=== PATIENT | female | born 1935 | race Caucasian/White ===

== ENCOUNTER → 2018-04-23 | Day surgery (SDC) | payer MEDICARE, BC ==
[~2018-04-23] MED LIST: ALEN70TA5 PO; CA C1TAB38 PO; CARV25TA2 PO; FOLI1TAB16 PO; HYDR-2145 PO; HYDROmorphone 2 MG/ML VIAL IV PRN; IV RINGERS,LACTATED 1000ML 1,000 ML IV SCH; LIDOCAINE 1% PF 2 ML VIAL. ID PRN; LOSA100T14 PO; MORPHINE SULFATE 4 MG/ML VIAL. IV PRN; NISO17TA PO; ONDANSETRON PF 4 MG/2 ML VIAL. IV PRN; PANT20TA2 PO; PHEN100C PO; POTA20TA4 PO; PROCHLORPERAZINE 10 MG/2 ML VIAL. IV PRN; PROPOFOL 20 ML IV ONE; RANI300C PO; SIMV40TA3 PO; WARF4TAB64 PO; fentaNYL PF VIAL 100 MCG/2 ML VIAL IV PRN
[2018-04-23 10:47] LABS: POTASSIUM 3.5 mmol/L (3.5-5.1)
[2018-04-23 12:35] VITALS: BP 157/63
--- NOTE | 2018-04-24 17:10 | PATHOLOGY ---
[facility] Accession Number: [id number] . 01 Material submitted: . PART A: ANTRAL BIOPSY PART B: GASTRIC POLYP BIOPSY PART C: DISTAL ESOPHAGUS BIOPSY PART D: Z LINE BIOPSY PART E: ESOPHAGEAL ULCER BIOPSY . 01 Clinical history: . Abnormal GI imaging . 02 Diagnosis: A. Gastric biopsies, antrum: - Congestion and slight chronic inflammation. . B. Gastric biopsies, gastric polyp: - Fundic gland polyp. . C. Esophageal biopsies, distal esophagus: - Segments of gastric cardia mucosa showing mild chronic inflammation. . D. 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 . E. 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 . (JPM:jaky; 04/24/2018) MBR/04/24/2018 . 02 Comment: Sections of the gastric biopsy reveal segments of gastric body and antral/body transition mucosa showing congestion and slight chronic inflammation. A properly controlled immunoperoxidase stain for Helicobacter is negative for Helicobacter organisms. Sections of the gastric polyp biopsy reveal a fundic gland polyp. There are no adenomatous changes or evidence of malignancy. Sections of the distal esophageal biopsy reveal segments of gastric cardia mucosa showing mild chronic inflammation. There is no squamous esophageal mucosa. 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 There is no squamous esophageal mucosa present. There is no dysplasia or evidence of malignancy. 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 There is no dysplasia or evidence of malignancy. There are no viral inclusions identified. . Special stain performed: Immunoperoxidase stain for Helicobacter on A1. . (JPM:junior assistant manager; 04/24/2018) . 02 Electronically signed: . Ochoa Jones MD, Pathologist NPI- [id number] . 01 Gross description: . A. Received in formalin labeled "Flor Goodman, antral BX, rule out H. pylori," are 3 segments of quach soft tissue measuring 0.9 x 0.6 x 0.2 cm in aggregate dimensions and ranging from 0.3 to 0.7 cm in maximum dimension. The specimen is submitted entirely in cassette A1. . B. Received in formalin labeled "David Goodmana, gastric polyp BX," are 2 segments of quach soft tissue measuring 0.5 x 0.2 x 0.2 cm in aggregate dimensions and ranging from 0.2 to 0.3 cm in maximum dimension. The specimen is submitted entirely in cassette B1. . C. Received in formalin labeled "BudDavid henrya, distal esophagus BX," is a single segment of quach soft tissue measuring 0.5 cm in maximum dimension. The specimen is entirely submitted in cassette C1. . D. Received in formalin labeled "David Goodmana, Z line bx," are 2 segments of quach soft tissue measuring 0.5 x 0.2 x 0.2 cm in aggregate dimensions and ranging from 0.2 to 0.3 cm in maximum dimension. The specimen is submitted entirely in cassette D1. . E. Received in formalin labeled "Maxine, Flor, esophageal ulcer BX, rule out CMV and HSV," are 3 segments of quach soft tissue measuring 0.6 x 0.4 x 0.2 cm in aggregate dimensions and ranging from 0.2 to 0.3 cm in maximum dimension. The specimen is submitted entirely in cassette E1. (TSD; 04/23/2018) TOB/TOB . 02 Pathologist provided ICD-10: K29.50, K31.7, K20.9, K22.70 . 02 CPT . 830847, 888620, 359157, 031157, 345978, E77806 Specimen Comment: A courtesy copy of this report has been sent to Specimen Comment: [phone], . Specimen Comment: Report sent to / DR LOPEZ Specimen Comment: A duplicate report has been generated due to demographic updates. Performed at: 01 [facility] [address] [id number] MD Anam Snyder MD Phone: [phone] Performed at: 02 [facility] [address] [place] [id number] MD Ochoa Jones MD Phone: [phone]
== END | disposition home or self-care (01) ==
LOC: ENDOS 09:57
PROVIDERS: ATTEND Internal Medicine
DX: K31.7 Polyp of stomach and duodenum (principal); K22.2 Esophageal obstruction; K44.9 Diaphragmatic hernia without obstruction or gangrene; K22.10 Ulcer of esophagus without bleeding; K22.8 Other specified diseases of esophagus; K31.89 Other diseases of stomach and duodenum; K29.50 Unspecified chronic gastritis without bleeding; K21.0 Gastro-esophageal reflux disease with esophagitis; I10 Essential (primary) hypertension; Z86.73 Personal history of transient ischemic attack (TIA), and cerebral infarction without residual deficits; E78.00 Pure hypercholesterolemia, unspecified; Z82.49 Family history of ischemic heart disease and other diseases of the circulatory system; Z72.0 Tobacco use; Z79.899 Other long term (current) drug therapy; Z90.710 Acquired absence of both cervix and uterus; Z79.01 Long term (current) use of anticoagulants; G40.909 Epilepsy, unspecified, not intractable, without status epilepticus; M81.0 Age-related osteoporosis without current pathological fracture
CPT/HCPCS: 36415; 43239; 80051; 88305; 88342; J2704

== ENCOUNTER → 2018-07-09 | Day surgery (SDC) | payer MEDICARE, BC ==
[~2018-07-09] MED LIST changes: -ALEN70TA5 PO; +ALEN70TA6 PO; -HYDROmorphone 2 MG/ML VIAL IV PRN; -LIDOCAINE 1% PF 2 ML VIAL. ID PRN; +LIDOCAINE 2% PF 5 ML VIAL. ONE; -MORPHINE SULFATE 4 MG/ML VIAL. IV PRN; -ONDANSETRON PF 4 MG/2 ML VIAL. IV PRN; -PROCHLORPERAZINE 10 MG/2 ML VIAL. IV PRN; -fentaNYL PF VIAL 100 MCG/2 ML VIAL IV PRN
[2018-07-09 08:58] VITALS: BP 159/86
--- NOTE | 2018-07-10 16:06 | PATHOLOGY ---
[facility] Accession Number: [id number] . 01 Material submitted: . PART A: stomach - GASTRIC ANTRUM BIOPSY PART B: esophagus - DISTAL ESOPHAGUS BIOPSY. Modifiers: distal . 01 Clinical history: . Follow-up ulcer . 02 Diagnosis: A. Gastric biopsies, antrum: - Acute gastritis. . B. Esophageal biopsy, distal esophagus: - Segment of gastric mucosa showing edema and chronic inflammation. . (JPM:pile driving nozzleman; 07/10/2018) MBR/07/10/2018 . 02 Comment: Sections of the gastric antral biopsy show congestion and neutrophilic infiltration of lamina propria with focally admixed eosinophils and few plasma cells. A properly controlled immunoperoxidase stain for Helicobacter is negative for Helicobacter organisms. Sections of the distal esophageal biopsy reveal a segment of gastric mucosa showing edema and mild to moderate chronic inflammation. There is no squamous esophageal mucosa. There is no evidence of Goldsmith's change, dysplasia, or malignancy. (JPM:pile driving nozzleman; 07/10/2018) . Special stain performed: Immunoperoxidase stain for Helicobacter on A1. . 02 Electronically signed: . Ochoa Jones MD, Pathologist NPI- [id number] . 01 Gross description: . A. The specimen is received in formalin, labeled "Budelaine, Flor, gastric antrum BX", are 2 quach mucosal tissues measuring 0.2 cm and a 0.3 cm in greatest dimension, entirely submitted in A1. . B. The specimen is received in formalin, labeled "Budke, Harmony, distal esophagus BX", is a [id number] tissue measuring 0.2 cm in greatest dimension, entirely submitted in B1. (SWS; 07/09/2018) SHS/SHS . 02 Pathologist provided ICD-10: K29.00, K20.9 . 02 CPT . 159733, 693744, E49767 Specimen Comment: A courtesy copy of this report has been sent to Specimen Comment: [phone], . Specimen Comment: Report sent to / DR LOPEZ Performed at: [address] [facility] [address], [place] [id number] MD Anam Snyder MD Phone: [phone] Performed at: 02 [facility] [address] [place], [place] [id number] MD Ochoa Jones MD Phone: [phone]
== END | disposition home or self-care (01) ==
LOC: SURG 06:45
PROVIDERS: ATTEND Internal Medicine
DX: K22.2 Esophageal obstruction (principal); K22.8 Other specified diseases of esophagus; K44.9 Diaphragmatic hernia without obstruction or gangrene; K31.7 Polyp of stomach and duodenum; K31.89 Other diseases of stomach and duodenum; K29.00 Acute gastritis without bleeding; K21.0 Gastro-esophageal reflux disease with esophagitis; I10 Essential (primary) hypertension; E78.5 Hyperlipidemia, unspecified; Z86.73 Personal history of transient ischemic attack (TIA), and cerebral infarction without residual deficits; G40.909 Epilepsy, unspecified, not intractable, without status epilepticus; M81.0 Age-related osteoporosis without current pathological fracture; E78.00 Pure hypercholesterolemia, unspecified; Z72.89 Other problems related to lifestyle; Z79.899 Other long term (current) drug therapy; Z90.710 Acquired absence of both cervix and uterus
CPT/HCPCS: 43239; 88305; 88342; J2001; J2704

== ENCOUNTER 2021-01-04 19:45 | Inpatient (IN) | payer MEDICARE, BC ==
[~2021-01-04] VITALS: Ht 157.5 cm; Wt 48.4 kg
[~2021-01-04 19:45] MED LIST changes: -ALEN70TA6 PO; +ALEN70TA71 PO; -IV RINGERS,LACTATED 1000ML 1,000 ML IV SCH; -LIDOCAINE 2% PF 5 ML VIAL. ONE; +POTA-121 PO; -POTA20TA4 PO; -PROPOFOL 20 ML IV ONE; +SIMV40TA18 PO; -SIMV40TA3 PO
[2021-01-04] MEDS ORDERED: fentaNYL PF VIAL 100 MCG/2 ML VIAL IVP PRN (20:00)
[2021-01-04] MEDS ORDERED: ACETAMINOPHEN 325 MG TABLET. PO PRN (20:00)
[2021-01-04] MEDS ORDERED: ONDANSETRON PF 4 MG/2 ML VIAL. IVP PRN (20:00)
[2021-01-04] MEDS ORDERED: IPRATRPIUM/ALBUTEROL 0.5/2.5MG 3 ML NEBU. NEB PRN (20:00)
[2021-01-04] MEDS ORDERED: hydrALAZINE 20 MG/ML VIAL. IVP ONE (20:15)
--- NOTE | 2021-01-04 20:15 | ED.ADGEN ---
General Adult EDM: Chief Complaint: HEAD INJURY/TRAUMA HPI: HPI: Patient is a 85 year old female trauma transfer from [facility] emergency department for a fall with 5 posterior rib fractures and a scalp hematoma. Patient is anticoagulated with Coumadin due to a previous stroke. Patient states his mechanical fall she fell backwards in her head without loss of consciousness. Patient had imaging done at [facility] which I have reviewed. Patient had a scalp abrasion without laceration that was bandaged no sutures or celine placed. Review of Systems: Review of Systems: All other systems within normal limits except for as noted in the HPI Current Medications: Current Medications Medications (Trade) Dose Ordered Sig/Cisco Start Time Stop Time Status Last Admin Dose Admin Acetaminophen (Tylenol) 650 mg PRN Q4HRS PRN 01/04/21 20:00 01/05/21 19:59 UNV Albuterol/ Ipratropium (Duoneb) 3 ml RTQID PRN 01/04/21 20:00 01/05/21 19:59 UNV Amlodipine Besylate (Norvasc) 5 mg 1X ONCE 01/04/21 20:00 01/04/21 20:01 UNV Fentanyl Citrate (Fentanyl 2ml Vial) 50 mcg PRN Q1HR PRN 01/04/21 20:00 01/05/21 19:59 UNV Hydralazine HCl (Apresoline Inj) 10 mg 1X ONCE 01/04/21 20:15 01/04/21 20:16 UNV Ondansetron HCl (Zofran) 4 mg PRN Q8HRS PRN 01/04/21 20:00 01/05/21 19:59 UNV Allergies: Allergies: Allergies Coded Allergies Type Severity Reaction Last Updated Verified No Known Drug Allergies 07/09/18 No Physical Exam: PE: Constitutional: Well developed, well nourished, no acute distress, non-toxic appearance. [] HENT: Normocephalic, posterior scalp, with overlying bandage, bilateral external ears normal, nose normal. [] Eyes: PERRLA, conjunctiva normal, no discharge. [] Neck: No rigidity, supple, no stridor. [] Cardiovascular: Regular rate and rhythm, brisk cap refill [] Lungs & Thorax: Non labored symmetric respirations, mild tachypnea or respiratory distress [] Abdomen: Soft, nondistended. Skin: Warm, dry, no erythema, no rash. [] Back: Unremarkable Extremities: No deformities, range of motion grossly intact, no lower extremity edema [] Neurologic: Alert and oriented X 3, no focal deficits noted. [] Psychologic: Affect normal, judgement normal, mood normal. [] EKG: EKG: [] Heart Score: C/O Chest Pain: N/A Risk Factors: Risk Factors: DM, Current or recent (<one month) smoker, HTN, HLP, family history of CAD, obesity. Risk Scores: Score 0 - 3: 2.5% MACE over next 6 weeks - Discharge Home Score 4 - 6: 20.3% MACE over next 6 weeks - Admit for Clinical Observation Score 7 - 10: 72.7% MACE over next 6 weeks - Early Invasive Strategies Radiology/Procedures: Radiology/Procedures: [] Course & Med Decision Making: Course & Med Decision Making Pertinent Labs and Imaging studies reviewed. (See chart for details) Contacted Dr. Hyman and Dr. Case outpatient arrival and repeat assessment. Patient appears to be stable without tachypnea, pain is controlled with fentanyl just prior to departure from [facility]. Will admit to ICU for pulmonary care [] Dragon Disclaimer: Dragon Disclaimer: This electronic medical record was generated, in whole or in part, using a voice recognition dictation system. Departure Departure Impression: Primary Impression: Fall Additional Impressions: Traumatic hematoma of scalp Closed traumatic nondisplaced fracture of multiple ribs of right side Disposition: ADMITTED INPATIENT Admitting Physician: Madi. Toure Condition: GUARDED Referrals: GIDEON LOPEZ MD (PCP) Problem Qualifiers CLARISSA ANDRADE MD Jan 04, 2021 20:15
[2021-01-04 22:00] VITALS: BP 140/56
[2021-01-04 23:00] VITALS: BP 165/64
[2021-01-05] VITALS (14 sets, daily range): BP systolic 120–183; BP diastolic 52–113
[2021-01-05] MEDS: PHENYTOIN SODIUM EXTENDED 100 MG CAPSULE PO SCH ×4 (00:25→21:27)
[2021-01-05 05:02] LABS: BASO % 1 % (0-3); EOS # 0.1 x10^3/uL (0.0-0.7); EOS % 2 % (0-3); HEMATOCRIT 32.1 % (36.0-47.0); LYMPH # 0.9 x10^3/uL (1.0-4.8); LYMPH % 14 % (24-48); MEAN CORPUSCULAR HEMOGLOBIN 30 pg (25-35); MEAN CORPUSCULAR HGB CONC 34 g/dL (31-37); MEAN CORPUSCULAR VOLUME 86 fL (79-100); MONO # 0.9 x10^3/uL (0.0-1.1); MONO % 14 % (0-9); NEUT # 4.6 x10^3/uL (1.8-7.7); NEUT % 71 % (31-73); PLATELET COUNT 200 x10^3/uL (140-400); RED BLOOD COUNT 3.71 x10^6/uL (3.50-5.40); RED CELL DISTRIBUTION WIDTH 14.1 % (11.5-14.5); WHITE BLOOD COUNT 6.5 x10^3/uL (4.0-11.0)
[2021-01-05 05:26] LABS: CALCIUM 7.8 mg/dL (8.5-10.1); CREATININE 0.7 mg/dL (0.6-1.0); GFR 79.5; POTASSIUM 3.8 mmol/L (3.5-5.1)
[2021-01-05] MEDS: PANTOPRAZOLE 40 MG TABLET.DR. PO SCH (08:58)
[2021-01-05] MEDS: POTASSIUM CHLORIDE 20 MEQ TABLET.ER. PO SCH (08:58)
[2021-01-05] MEDS: hydroCHLOROthiazide 25 MG TABLET PO SCH (08:58)
[2021-01-05] MEDS: CARVEDILOL 12.5 MG TABLET. PO SCH ×2 (08:59→17:25)
[2021-01-05] MEDS: FOLIC ACID 1 MG TABLET. PO SCH (08:59)
[2021-01-05] MEDS: LOSARTAN POTASSIUM 50 MG TABLET. PO SCH (08:59)
--- NOTE | 2021-01-05 08:59 | PDOC2 ---
HEATHERGAVINO Roz [employer] 01/05/21 0859: CONSULT Date of Consult Date of Consult DATE: 01/05/21 TIME: 08:54 Reason for Consult Reason for Consult: Trauma, rib fx Referring Physician Referring Physician: ER Identification/Chief Complaint Chief Complaint fall Source Source: Chart review, Patient History of Present Illness Reason for Visit: Fall backwards, striking posterior scalp. Denies LOC. Initially seen in [facility] ER. Imaging with 5th-10th rib fx. Tx to [facility] for further management Currently denies any pain, no vision changes, no nausea Past Medical History Cardiovascular: CAD, HTN, Hyperlipidemia CENTRAL NERVOUS SYSTEM: Seizure, Other (strok) GI: GERD Past Surgical History Past Surgical History: Hysterectomy Family History Family History: Family History Unknown Social History No ALCOHOL: none Drugs: None Current Problem List Problem List Problems Medical Problems: (1) Closed traumatic nondisplaced fracture of multiple ribs of right side Status: Acute (2) Fall Status: Acute (3) Traumatic hematoma of scalp Status: Acute Current Medications Current Medications Current Medications Ondansetron HCl (Zofran) 4 mg PRN Q8HRS PRN IVP NAUSEA/VOMITING; Start 01/04/21 at 20:00; Stop 01/05/21 at 19:59 Fentanyl Citrate (Fentanyl 2ml Vial) 50 mcg PRN Q1HR PRN IVP PAIN Last administered on 01/04/21at 21:52; Start 01/04/21 at 20:00; Stop 01/05/21 at 19:59 Acetaminophen (Tylenol) 650 mg PRN Q4HRS PRN PO FEVER > 100.3'F; Start 01/04/21 at 20:00; Stop 01/05/21 at 19:59 Albuterol/ Ipratropium (Duoneb) 3 ml RTQID PRN NEB dyspnea/wheezing; Start 01/04/21 at 20:00; Stop 01/05/21 at 19:59 Amlodipine Besylate (Norvasc) 5 mg 1X ONCE PO Last administered on 01/04/21at 20:35; Start 01/04/21 at 20:00; Stop 01/04/21 at 20:19; Status DC Hydralazine HCl (Apresoline Inj) 10 mg 1X ONCE IVP Last administered on 01/04/21at 20:36; Start 01/04/21 at 20:15; Stop 01/04/21 at 20:19; Status DC Hydralazine HCl (Apresoline Inj) 20 mg TID PRN PRN IVP ELEVATED BP, SEE COMMENTS; Start 01/04/21 at 22:45 Amlodipine Besylate (Norvasc) 10 mg DAILY PO ; Start 01/05/21 at 09:00 Folic Acid (Folic Acid) 1 mg DAILY PO ; Start 01/05/21 at 09:00 Hydrochlorothiazide (Hydrodiuril) 25 mg DAILY PO ; Start 01/05/21 at 09:00 Phenytoin Sodium (Dilantin) 300 mg TID PO Last administered on 01/05/21at 00:25; Start 01/05/21 at 00:00 Potassium Chloride (Klor-Con) 20 meq DAILY PO ; Start 01/05/21 at 09:00 Atorvastatin Calcium (Lipitor) 20 mg QHS PO ; Start 01/05/21 at 21:00 Non-Formulary Medication (Alendronate Sodium ) 70 mg WEEKLY PO ; Start 01/11/21 at 09:00; Status UNV Calcium/Vitamin D (Oscal D 500mg/ 200uts) 1 tab DAILY PO ; Start 01/05/21 at 09:00 Carvedilol (Coreg) 25 mg BIDWMEALS PO ; Start 01/05/21 at 08:00 Losartan Potassium (Cozaar) 100 mg DAILY PO ; Start 01/05/21 at 09:00 Pantoprazole Sodium (Protonix) 40 mg DAILYAC PO ; Start 01/05/21 at 07:30 Non-Formulary Medication (Ranitidine Hcl ) 300 mg HS PO ; Start 01/05/21 at 21:00; Status UNV Active Scripts Active Reported Dilantin (Phenytoin Sodium Extended) 100 Mg Capsule 300 Mg PO TID Nisoldipine 17 Mg Tab.er.24h 17 Mg PO DAILY Simvastatin 40 Mg Tablet 40 Mg PO HS Ranitidine Hcl 300 Mg Capsule 300 Mg PO HS Warfarin Sodium 4 Mg Tablet 4 Mg PO DAILY Alendronate Sodium 70 Mg Tablet 70 Mg PO WEEKLY Calcium + D Soft Chewable Tab (Ca Carbonate/Vitamin D3/Vit K) 1 Each Tab.chew 1 Each PO DAILY Protonix (Pantoprazole Sodium) 20 Mg Tablet.dr 20 Mg PO DAILY Folic Acid 1 Mg Tablet 1 Mg PO DAILY Klor-Con M20 (Potassium Chloride) 20 Meq Tab.er.prt 20 Meq PO DAILY Hydrochlorothiazide Tablet (Hydrochlorothiazide) 25 Mg Tablet 25 Mg PO DAILY Losartan Potassium 100 Mg Tablet 100 Mg PO DAILY Carvedilol 25 Mg Tablet 25 Mg PO BIDWMEALS Allergies Allergies: Coded Allergies: No Known Drug Allergies (Unverified , 07/09/18) ROS General: No: Chills, Other (fevers ) PSYCHOLOGICAL ROS: No: Anxiety, Depression Eyes: No Blurry vision, No Double vision, No Loss of vision HEENT: No: Heacaches, Visual Changes, Hearing change Hematological and Lymphatic: YES: Bleeding Problems; No: Blood Clots Respiratory: No: Cough, Shortness of breath Cardiovascular: No Chest Pain, No Palpitations Gastrointestinal: No Nausea, No Vomiting Genitourinary: No Dysuria, No Hematuria Musculoskeletal: Yes Muscular Weakness; No Joint Pain Neurological: Yes Impaired Coord/balance; No Numbness/Tingling Skin: No Pruritus, No Rash Physical Exam General: Alert, Oriented X3, Cooperative HEENT: PERRLA, Mucous membr. moist/pink Lungs: Clear to auscultation, Normal air movement Heart: Regular rate, Normal S1, Normal S2 Abdomen: Soft, No tenderness, No hepatosplenomegaly Extremities: No clubbing, No cyanosis Skin: No rashes, No breakdown Neuro: Normal speech, Sensation intact Psych/Mental Status: Mental status NL, Mood NL MUSCULOSKELETAL: No deformity, No swelling Vitals VITALS Vital Signs Date Time Temp Pulse Resp B/P (MAP) Pulse Ox O2 Delivery O2 Flow Rate FiO2 01/05/21 07:00 65 21 173/63 (99) 95 Room Air 01/05/21 04:00 98.6 98.6 Labs Labs Laboratory Tests Test 01/05/21 04:40 White Blood Count 6.5 x10^3/uL (4.0-11.0) Red Blood Count 3.71 x10^6/uL (3.50-5.40) Hemoglobin 11.0 g/dL (12.0-15.5) Hematocrit 32.1 % (36.0-47.0) Mean Corpuscular Volume 86 fL (79-100) Mean Corpuscular Hemoglobin 30 pg (25-35) Mean Corpuscular Hemoglobin Concent 34 g/dL (31-37) Red Cell Distribution Width 14.1 % (11.5-14.5) Platelet Count 200 x10^3/uL (140-400) Neutrophils (%) (Auto) 71 % (31-73) Lymphocytes (%) (Auto) 14 % (24-48) Monocytes (%) (Auto) 14 % (0-9) Eosinophils (%) (Auto) 2 % (0-3) Basophils (%) (Auto) 1 % (0-3) Neutrophils # (Auto) 4.6 x10^3/uL (1.8-7.7) Lymphocytes # (Auto) 0.9 x10^3/uL (1.0-4.8) Monocytes # (Auto) 0.9 x10^3/uL (0.0-1.1) Eosinophils # (Auto) 0.1 x10^3/uL (0.0-0.7) Basophils # (Auto) 0.0 x10^3/uL (0.0-0.2) Sodium Level 131 mmol/L (136-145) Potassium Level 3.8 mmol/L (3.5-5.1) Chloride Level 96 mmol/L (98-107) Carbon Dioxide Level 30 mmol/L (21-32) Anion Gap 5 (6-14) Blood Urea Nitrogen 14 mg/dL (7-20) Creatinine 0.7 mg/dL (0.6-1.0) Estimated GFR (Cockcroft-Gault) 79.5 Glucose Level 95 mg/dL (70-99) Calcium Level 7.8 mg/dL (8.5-10.1) Laboratory Tests Test 01/05/21 04:40 White Blood Count 6.5 x10^3/uL (4.0-11.0) Red Blood Count 3.71 x10^6/uL (3.50-5.40) Hemoglobin 11.0 g/dL (12.0-15.5) Hematocrit 32.1 % (36.0-47.0) Mean Corpuscular Volume 86 fL (79-100) Mean Corpuscular Hemoglobin 30 pg (25-35) Mean Corpuscular Hemoglobin Concent 34 g/dL (31-37) Red Cell Distribution Width 14.1 % (11.5-14.5) Platelet Count 200 x10^3/uL (140-400) Neutrophils (%) (Auto) 71 % (31-73) Lymphocytes (%) (Auto) 14 % (24-48) Monocytes (%) (Auto) 14 % (0-9) Eosinophils (%) (Auto) 2 % (0-3) Basophils (%) (Auto) 1 % (0-3) Neutrophils # (Auto) 4.6 x10^3/uL (1.8-7.7) Lymphocytes # (Auto) 0.9 x10^3/uL (1.0-4.8) Monocytes # (Auto) 0.9 x10^3/uL (0.0-1.1) Eosinophils # (Auto) 0.1 x10^3/uL (0.0-0.7) Basophils # (Auto) 0.0 x10^3/uL (0.0-0.2) Sodium Level 131 mmol/L (136-145) Potassium Level 3.8 mmol/L (3.5-5.1) Chloride Level 96 mmol/L (98-107) Carbon Dioxide Level 30 mmol/L (21-32) Anion Gap 5 (6-14) Blood Urea Nitrogen 14 mg/dL (7-20) Creatinine 0.7 mg/dL (0.6-1.0) Estimated GFR (Cockcroft-Gault) 79.5 Glucose Level 95 mg/dL (70-99) Calcium Level 7.8 mg/dL (8.5-10.1) Assessment/Plan Assessment/Plan fall, rib fx no pneumo on CT, sats >90% on RA, denies pain increase activity, PT/ot eval no surgical needs MUKESH SARAVIA MD 01/05/21 1214: CONSULT Assessment/Plan Assessment/Plan Pt seen and examined. Agree with Ms. Romero's note Pt feels comfortable now alert and oriented, pleasant abd soft, NTTP OK to transfer out of ICU and ADAT Thanks for consult! GAVINO ROMERO APRN Jan 05, 2021 08:59 MUKESH SARAVIA MD Jan 05, 2021 12:14
[2021-01-05] MEDS: CALCIUM CARB/VIT D3 500/200 TABLET. PO SCH (09:41)
--- NOTE | 2021-01-05 09:58 | PN ---
DATE: 01/05/2021 SUBJECTIVE: The patient is resting, slightly propped up in bed, eating her breakfast comfortably, in no apparent distress. On questioning her, she did complain of back pain on the right side on movement and taking a deep breath. Otherwise, she seemed to be in no apparent respiratory distress. PHYSICAL EXAMINATION: GENERAL: When I examined her, she looked well and was clearly pale, but not jaundiced, cyanosed or thyromegaly. No jugular venous distention. No lower limb edema. VITAL SIGNS: Her heart rate was 65, blood pressure was 177/75, temperature was 98.6, respiratory rate 21, and oxygen saturation was 95% on room air. HEAD, EYES, EARS, NOSE AND THROAT: Normocephalic, atraumatic. NECK: Supple. HEART: Showed normal first and second heart sounds. No gallop or murmur. CHEST: Shows central trachea, equal bilateral chest expansion, air entry, vesicular breath sounds. No crepitation or rhonchi. Tenderness mostly on the right side posteriorly. ABDOMEN: Distended, soft, nontender. NEUROLOGIC: She was grossly intact. Her intake and output are incompletely recorded. LABORATORY DATA: This morning showed white cell count 6500, hemoglobin 11, hematocrit 32, MCV 86 and platelet count 200,000. Her chemistry showed a serum sodium 131, potassium 3.8, chloride 96, bicarbonate 30, anion gap of 5, BUN 14, creatinine 0.7, estimated GFR was 79 mL per minute, glucose 95 and calcium was 7.8. ASSESSMENT: Fall with resultant right-sided rib fracture including right 5th to 10th rib fracture. There is no pneumothorax or hemothorax. The patient has multiple medical problems including hypertension, hyperlipidemia, atrial fibrillation, seizure disorder, gastroesophageal reflux disease, history of cerebrovascular accident, chronic hyponatremia and macular degeneration as well as osteoporosis. PLAN: Continue with pain management. We will start physical and occupational therapy. The patient will probably require placement in a intermediate facility. JET DR: Jaqueline TID: [id number]
--- NOTE | 2021-01-05 10:26 | HP ---
ADMIT DATE: 01/04/2021 HISTORY OF PRESENT ILLNESS: The patient is an 85-year-old female patient who presented to the Emergency Room of [facility] [place] with a fall. She stated that she tripped on a crack in the concrete and fell backward and hitting her head; however, she denied any loss of consciousness. She is on warfarin and apparently she has had a history of what seemed to be atrial fibrillation. She also has a history of CVA. She reported pain in her head and the right posterior ribs. She, however, denied any dizziness or lightheadedness. Denied any palpitation. Denied any pain in any other areas. She was extensively investigated in the Emergency Room, has had imaging studies and lab work. Her CT scan of the head showed old right CVA and chronic white matter changes, cerebral atrophy, but no intracranial hemorrhage or definite acute finding. CT scan of the cervical spine showed extensive degenerative changes in the cervical spine, but no acute C-spine fracture. Her CT scan of the chest, abdomen and pelvis without contrast revealed mildly displaced posterior right fifth through the tenth rib fracture, no pneumothorax compression fractures involving T6, T5, T7 and T11 vertebral bodies, which are age indeterminate. No sequelae of acute traumatic injury identified within the abdomen and pelvis. She had diverticulosis without evidence of acute diverticulitis. The patient [facility] evaluation and management. PAST MEDICAL HISTORY: Significant for hypertension, hyperlipidemia. She had right middle cerebral artery territory infarct, right-sided cerebrovascular accident, dementia, depression, gastroesophageal reflux disease. She also had syndrome of inappropriate ADH, hypokalemia, senile macular degeneration, osteoporosis. PAST SURGICAL HISTORY: Significant for hysterectomy, tonsillectomy, appendectomy. ALLERGIES: She has no known drug allergies. MEDICATIONS: She is currently on following medication: She is on Aricept 5 mg at bedtime, warfarin 3 mg daily, simvastatin 40 mg at bedtime, hydralazine 25 mg 3 times a day with meals, carvedilol 25 mg 3 times a day, nisoldipine 17 mg daily, losartan potassium 100 mg daily, fentanyl 12 mcg topically every 72 hours, phenytoin sodium extended release 300 mg at bedtime, fluoxetine 10 mg daily, calcium carbonate with vitamin D3 one tablet twice a day, potassium chloride 20 mEq twice a day. She is also on aflibercept 2 mg and 0.05 mL every 2-3 months for macular degeneration. She is on ondansetron 4 mg every 8 hours. She is on ranitidine 300 mg at bedtime, Protonix 20 mg twice a day, Nystatin powder apply topically twice a day. 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 FAMILY HISTORY: Noncontributory. SOCIAL HISTORY: She is , has 4 sons and 2 daughters. She has never been a smoker, used to drink alcohol, but has not drank for almost more than 12 years. She does not use any drugs. She used to be a printing press operator apprentice. REVIEW OF SYSTEMS: As per history of present illness. PHYSICAL EXAMINATION: GENERAL: On arrival to the Emergency Room, the patient looked well and was in no apparent respiratory distress. No pallor, jaundice, cyanosis or thyromegaly. No jugular venous distention. No lower limb edema. VITAL SIGNS: Her heart rate was 76, blood pressure was 211/102, temperature was 98.4, respiratory rate was 16 and oxygen saturation was 98%. HEAD, EYES, EARS, NOSE, AND THROAT: Normocephalic and atraumatic. NECK: Supple. HEART: Showed normal first and second heart sounds, no gallop or murmur. CHEST: Clear to auscultation. No crepitation or rhonchi. She had tenderness mostly on the right side posteriorly. ABDOMEN: Distended, soft, nontender. NEUROLOGIC: She was grossly intact. LABORATORY DATA: Her lab work showed a white cell count of 8500, hemoglobin 12.7, hematocrit 37, MCV 88 and platelet count 235,000 with normal manual differential. Her prothrombin time was 23.9, INR of 2.3, APTT 30. Her chemistry showed a serum sodium 131, potassium 4.7, chloride 95, bicarbonate 31, anion gap of 5, BUN 17, creatinine 0.7. Estimated GFR was 79 mL per minute. Her glucose was 110, calcium was 8.8. Total bilirubin, AST, ALT, alkaline phosphatase were normal. Total protein 7.4, albumin 3.1. Her CT scan of the head and cervical spine showed old right sided CVA, chronic white matter changes, cerebral atrophy, no intracranial hemorrhage or definite acute finding. CT scan of the cervical spine showed extensive degenerative changes in the cervical spine, but no acute C-spine fracture. CT scan of the chest, abdomen and pelvis showed the patient has mildly displaced posterior right fifth through tenth rib fractures, no pneumothorax, compression fracture involving T5, T7, T11 vertebral bodies, which are age indeterminate, correlate with point tenderness. No sequelae of acute traumatic injury identified within the abdomen and pelvis or diverticulosis without evidence of acute diverticulitis. PLAN: To continue all her medications. Continue with pain management. We will start physical and occupational therapy. ARMEN DR: Jaqueline TID: [id number]
--- NOTE | 2021-01-05 10:52 | PDOC ---
PULMONARY PROGRESS NOTES DATE: 01/05/21 TIME: 10:50 Vitals Vital Signs Date Time Temp Pulse Resp B/P (MAP) Pulse Ox O2 Delivery O2 Flow Rate FiO2 01/05/21 09:26 97 Room Air 01/05/21 09:00 66 28 183/113 (136) 01/05/21 08:00 98.3 98.3 Labs Laboratory Tests Test 01/05/21 04:40 White Blood Count 6.5 x10^3/uL (4.0-11.0) Red Blood Count 3.71 x10^6/uL (3.50-5.40) Hemoglobin 11.0 g/dL (12.0-15.5) Hematocrit 32.1 % (36.0-47.0) Mean Corpuscular Volume 86 fL (79-100) Mean Corpuscular Hemoglobin 30 pg (25-35) Mean Corpuscular Hemoglobin Concent 34 g/dL (31-37) Red Cell Distribution Width 14.1 % (11.5-14.5) Platelet Count 200 x10^3/uL (140-400) Neutrophils (%) (Auto) 71 % (31-73) Lymphocytes (%) (Auto) 14 % (24-48) Monocytes (%) (Auto) 14 % (0-9) Eosinophils (%) (Auto) 2 % (0-3) Basophils (%) (Auto) 1 % (0-3) Neutrophils # (Auto) 4.6 x10^3/uL (1.8-7.7) Lymphocytes # (Auto) 0.9 x10^3/uL (1.0-4.8) Monocytes # (Auto) 0.9 x10^3/uL (0.0-1.1) Eosinophils # (Auto) 0.1 x10^3/uL (0.0-0.7) Basophils # (Auto) 0.0 x10^3/uL (0.0-0.2) Sodium Level 131 mmol/L (136-145) Potassium Level 3.8 mmol/L (3.5-5.1) Chloride Level 96 mmol/L (98-107) Carbon Dioxide Level 30 mmol/L (21-32) Anion Gap 5 (6-14) Blood Urea Nitrogen 14 mg/dL (7-20) Creatinine 0.7 mg/dL (0.6-1.0) Estimated GFR (Cockcroft-Gault) 79.5 Glucose Level 95 mg/dL (70-99) Calcium Level 7.8 mg/dL (8.5-10.1) Laboratory Tests Test 01/05/21 04:40 White Blood Count 6.5 x10^3/uL (4.0-11.0) Red Blood Count 3.71 x10^6/uL (3.50-5.40) Hemoglobin 11.0 g/dL (12.0-15.5) Hematocrit 32.1 % (36.0-47.0) Mean Corpuscular Volume 86 fL (79-100) Mean Corpuscular Hemoglobin 30 pg (25-35) Mean Corpuscular Hemoglobin Concent 34 g/dL (31-37) Red Cell Distribution Width 14.1 % (11.5-14.5) Platelet Count 200 x10^3/uL (140-400) Neutrophils (%) (Auto) 71 % (31-73) Lymphocytes (%) (Auto) 14 % (24-48) Monocytes (%) (Auto) 14 % (0-9) Eosinophils (%) (Auto) 2 % (0-3) Basophils (%) (Auto) 1 % (0-3) Neutrophils # (Auto) 4.6 x10^3/uL (1.8-7.7) Lymphocytes # (Auto) 0.9 x10^3/uL (1.0-4.8) Monocytes # (Auto) 0.9 x10^3/uL (0.0-1.1) Eosinophils # (Auto) 0.1 x10^3/uL (0.0-0.7) Basophils # (Auto) 0.0 x10^3/uL (0.0-0.2) Sodium Level 131 mmol/L (136-145) Potassium Level 3.8 mmol/L (3.5-5.1) Chloride Level 96 mmol/L (98-107) Carbon Dioxide Level 30 mmol/L (21-32) Anion Gap 5 (6-14) Blood Urea Nitrogen 14 mg/dL (7-20) Creatinine 0.7 mg/dL (0.6-1.0) Estimated GFR (Cockcroft-Gault) 79.5 Glucose Level 95 mg/dL (70-99) Calcium Level 7.8 mg/dL (8.5-10.1) Medications Active Scripts Medications Dose Route/Sig Max Daily Dose Days Date Category Dilantin (Phenytoin Sodium Extended) 100 Mg Capsule 300 Mg PO TID 04/23/18 Reported Nisoldipine 17 Mg Tab.er.24h 17 Mg PO DAILY 04/23/18 Reported Simvastatin 40 Mg Tablet 40 Mg PO HS 04/23/18 Reported Ranitidine Hcl 300 Mg Capsule 300 Mg PO HS 04/23/18 Reported Warfarin Sodium 4 Mg Tablet 4 Mg PO DAILY 04/23/18 Reported Alendronate Sodium 70 Mg Tablet 70 Mg PO WEEKLY 04/23/18 Reported Calcium + D Soft Chewable Tab (Ca Carbonate/Vitamin D3/Vit K) 1 Each Tab.chew 1 Each PO DAILY 04/23/18 Reported Protonix (Pantoprazole Sodium) 20 Mg Tablet.dr 20 Mg PO DAILY 04/23/18 Reported Folic Acid 1 Mg Tablet 1 Mg PO DAILY 04/23/18 Reported Klor-Con M20 (Potassium Chloride) 20 Meq Tab.er.prt 20 Meq PO DAILY 04/23/18 Reported Hydrochlorothiazide Tablet (Hydrochlorothiazide) 25 Mg Tablet 25 Mg PO DAILY 04/23/18 Reported Losartan Potassium 100 Mg Tablet 100 Mg PO DAILY 04/23/18 Reported Carvedilol 25 Mg Tablet 25 Mg PO BIDWMEALS 04/23/18 Reported Impression . Full note dictated Fractured ribs No pneumothorax Monitor close MEJIA CERVANTES MD Jan 05, 2021 10:52
--- NOTE | 2021-01-05 11:36 | CONS ---
DATE OF CONSULTATION: 01/05/2021 REASON FOR CONSULTATION: The patient is seen in Pulmonary consultation at the request of Dr. Case for abnormal x-ray revealing rib fractures. HISTORY OF PRESENT ILLNESS: The patient is an 85-year-old that fell backwards. She states that she did not have any warning symptoms. No associated chest pain or pressure or palpitations. She presented to the Emergency Room after falling. She had a CT of the head that showed old right CVA infarct. There was no intracranial hemorrhage. She had a CT of the cervical spine showing extensive degenerative changes, no acute fractures. She had a CT of the chest, abdomen and pelvis revealing mild displaced posterior right 5th through 10th rib fractures, no pneumothorax. She also had previous compression fractures. The patient is currently awake, alert. She has some discomfort with deep inspiration. Otherwise, denies any other symptoms. She has never smoked. PAST MEDICAL HISTORY: Hypertension, hyperlipidemia, previous right middle cerebral artery infarct, dementia, depression, gastroesophageal reflux. PAST SURGICAL HISTORY: Hysterectomy, tonsillectomy, appendectomy. ALLERGIES: No known drug allergies. REVIEW OF SYSTEMS: As indicated above. Otherwise, a 10-point system was reviewed and negative. FAMILY HISTORY: Noncontributory. SOCIAL HISTORY: She lives with her . No history of alcohol consumption lately. PHYSICAL EXAMINATION: GENERAL: The patient appears to be of stated age. VITAL SIGNS: Stable. O2 saturation greater than 92%. LUNGS: Clear anteriorly. CARDIOVASCULAR: Regular rate and rhythm with S1 and S2, no S3. ABDOMEN: Soft, nontender. EXTREMITIES: No clubbing, cyanosis or edema. LABORATORY DATA: Labs were reviewed. CT chest was likewise reviewed. IMPRESSION: 1. Rib fractures on the right side secondary to fall. 2. Recent fall, etiology unclear. We will defer to PCP for further workup. 3. Negative CT head and CT cervical spine for any acute disease. 4. Hypertension. 5. Hyperlipidemia. PLAN: 1. Chest current imaging studies revealed no evidence of pneumothorax, we will monitor closely for delayed pneumothorax. 2. Incentive spirometry. 3. Pain management per PCP. I do appreciate the privilege in sharing in this patient's care. CINDY PATTERSON: Sudhakar TID: [phone]
[2021-01-05 13:19] LABS: PROTHROMBIN TIME PATIENT 24.2 SEC (11.7-14.0)
--- NOTE | 2021-01-05 14:08 | NUR ---
Pt transferred to room 400 via wheelchair with all belongings. Family notified of transfer and current condition.
--- NOTE | 2021-01-05 16:41 | NUR ---
SS following for discharge planning. SS reviewed pt chart and discussed with pt RN. Pt is from home with spouse and is currently on room air. Surgery and Pulmonology consulted. Pt transferred to room 400. SS will continue to follow for discharge planning.
[2021-01-05] MEDS ORDERED: NON FORMULARY ITEM (Ranitidine Hcl 300 MG) PO SCH (21:00)
[2021-01-05] MEDS: ATORVASTATIN CALCIUM 20 MG TABLET PO SCH (21:27)
[2021-01-06 02:20] VITALS: BP 168/68
[2021-01-06] MEDS: fentaNYL PF VIAL 100 MCG/2 ML VIAL IVP PRN (02:37)
--- NOTE | 2021-01-06 02:44 | NUR ---
Patient complaining of increased pain, unable to get comfortable and or sleep. Patient kept asking to sit on the edge of the bed. Pt had been denying any pain medication. patient stated she "takes too many medications already". explained to her that this medication will not be nursing home, and she agreed. Notified Dr. Case and received orders for fentanyl injection 50 mcg Q3 hrs PRN for pain. Administered to patient will positive results, patient stated her pain had decreased some but not completely yet.
[2021-01-06 07:00] VITALS: BP 154/72
[2021-01-06 08:09] LABS: HEMATOCRIT 33.1 % (36.0-47.0); HEMOGLOBIN 11.4 g/dL (12.0-15.5); RED BLOOD COUNT 3.81 x10^6/uL (3.50-5.40); RED CELL DISTRIBUTION WIDTH 13.8 % (11.5-14.5); WHITE BLOOD COUNT 5.7 x10^3/uL (4.0-11.0)
[2021-01-06 08:21] LABS: PROTHROMBIN TIME PATIENT 23.8 SEC (11.7-14.0)
[2021-01-06 08:28] LABS: ALBUMIN 2.5 g/dL (3.4-5.0); ALBUMIN/GLOBULIN RATIO 0.7 (1.0-1.7); CALCIUM 7.7 mg/dL (8.5-10.1); CREATININE 0.7 mg/dL (0.6-1.0); GFR 79.5; POTASSIUM 3.5 mmol/L (3.5-5.1); TOTAL BILIRUBIN 0.5 mg/dL (0.2-1.0); TOTAL PROTEIN 6.3 g/dL (6.4-8.2)
[2021-01-06] MEDS: CALCIUM CARB/VIT D3 500/200 TABLET. PO SCH (09:00)
--- NOTE | 2021-01-06 09:00 | PDOC ---
GAVINO ROMERO [employer] 01/06/21 0900: SURGICAL PROGRESS NOTE DATE: 01/06/21 TIME: 08:51 Subjective had some rib pain overnight, none currently starting breakfast Vital Signs Vital Signs Date Time Temp Pulse Resp B/P (MAP) Pulse Ox O2 Delivery O2 Flow Rate FiO2 01/06/21 07:00 98.2 60 18 154/72 (99) 98 Room Air 98.2 I&O Intake and Output 01/06/21 07:00 Intake Total 770 ml Output Total 700 ml Balance 70 ml Intake Oral 770 ml Output Urine Total 700 ml General: Alert, Cooperative Abdomen: Soft, No tenderness Labs Laboratory Tests Test 01/05/21 04:40 01/05/21 12:55 01/06/21 06:00 White Blood Count 6.5 x10^3/uL (4.0-11.0) 5.7 x10^3/uL (4.0-11.0) Red Blood Count 3.71 x10^6/uL (3.50-5.40) 3.81 x10^6/uL (3.50-5.40) Hemoglobin 11.0 g/dL (12.0-15.5) 11.4 g/dL (12.0-15.5) Hematocrit 32.1 % (36.0-47.0) 33.1 % (36.0-47.0) Mean Corpuscular Volume 86 fL (79-100) 87 fL (79-100) Mean Corpuscular Hemoglobin 30 pg (25-35) 30 pg (25-35) Mean Corpuscular Hemoglobin Concent 34 g/dL (31-37) 35 g/dL (31-37) Red Cell Distribution Width 14.1 % (11.5-14.5) 13.8 % (11.5-14.5) Platelet Count 200 x10^3/uL (140-400) 176 x10^3/uL (140-400) Neutrophils (%) (Auto) 71 % (31-73) Lymphocytes (%) (Auto) 14 % (24-48) Monocytes (%) (Auto) 14 % (0-9) Eosinophils (%) (Auto) 2 % (0-3) Basophils (%) (Auto) 1 % (0-3) Neutrophils # (Auto) 4.6 x10^3/uL (1.8-7.7) Lymphocytes # (Auto) 0.9 x10^3/uL (1.0-4.8) Monocytes # (Auto) 0.9 x10^3/uL (0.0-1.1) Eosinophils # (Auto) 0.1 x10^3/uL (0.0-0.7) Basophils # (Auto) 0.0 x10^3/uL (0.0-0.2) Sodium Level 131 mmol/L (136-145) 128 mmol/L (136-145) Potassium Level 3.8 mmol/L (3.5-5.1) 3.5 mmol/L (3.5-5.1) Chloride Level 96 mmol/L (98-107) 92 mmol/L (98-107) Carbon Dioxide Level 30 mmol/L (21-32) 30 mmol/L (21-32) Anion Gap 5 (6-14) 6 (6-14) Blood Urea Nitrogen 14 mg/dL (7-20) 11 mg/dL (7-20) Creatinine 0.7 mg/dL (0.6-1.0) 0.7 mg/dL (0.6-1.0) Estimated GFR (Cockcroft-Gault) 79.5 79.5 Glucose Level 95 mg/dL (70-99) 88 mg/dL (70-99) Calcium Level 7.8 mg/dL (8.5-10.1) 7.7 mg/dL (8.5-10.1) Prothrombin Time 24.2 SEC (11.7-14.0) 23.8 SEC (11.7-14.0) Prothromb Time International Ratio 2.2 (0.8-1.1) 2.2 (0.8-1.1) BUN/Creatinine Ratio 16 (6-20) Total Bilirubin 0.5 mg/dL (0.2-1.0) Aspartate Amino Transf (AST/SGOT) 24 U/L (15-37) Alanine Aminotransferase (ALT/SGPT) 28 U/L (14-59) Alkaline Phosphatase 117 U/L (46-116) Total Protein 6.3 g/dL (6.4-8.2) Albumin 2.5 g/dL (3.4-5.0) Albumin/Globulin Ratio 0.7 (1.0-1.7) Laboratory Tests Test 01/05/21 12:55 01/06/21 06:00 Prothrombin Time 24.2 SEC (11.7-14.0) 23.8 SEC (11.7-14.0) Prothromb Time International Ratio 2.2 (0.8-1.1) 2.2 (0.8-1.1) White Blood Count 5.7 x10^3/uL (4.0-11.0) Red Blood Count 3.81 x10^6/uL (3.50-5.40) Hemoglobin 11.4 g/dL (12.0-15.5) Hematocrit 33.1 % (36.0-47.0) Mean Corpuscular Volume 87 fL (79-100) Mean Corpuscular Hemoglobin 30 pg (25-35) Mean Corpuscular Hemoglobin Concent 35 g/dL (31-37) Red Cell Distribution Width 13.8 % (11.5-14.5) Platelet Count 176 x10^3/uL (140-400) Sodium Level 128 mmol/L (136-145) Potassium Level 3.5 mmol/L (3.5-5.1) Chloride Level 92 mmol/L (98-107) Carbon Dioxide Level 30 mmol/L (21-32) Anion Gap 6 (6-14) Blood Urea Nitrogen 11 mg/dL (7-20) Creatinine 0.7 mg/dL (0.6-1.0) Estimated GFR (Cockcroft-Gault) 79.5 BUN/Creatinine Ratio 16 (6-20) Glucose Level 88 mg/dL (70-99) Calcium Level 7.7 mg/dL (8.5-10.1) Total Bilirubin 0.5 mg/dL (0.2-1.0) Aspartate Amino Transf (AST/SGOT) 24 U/L (15-37) Alanine Aminotransferase (ALT/SGPT) 28 U/L (14-59) Alkaline Phosphatase 117 U/L (46-116) Total Protein 6.3 g/dL (6.4-8.2) Albumin 2.5 g/dL (3.4-5.0) Albumin/Globulin Ratio 0.7 (1.0-1.7) Problem List Problems Medical Problems: (1) Closed traumatic nondisplaced fracture of multiple ribs of right side Status: Acute (2) Fall Status: Acute (3) Traumatic hematoma of scalp Status: Acute Assessment/Plan O2 sats > 90% on RA pulm toiletry--PT, OT Justicifation of Admission Dx: Justifications for Admission: Justification of Admission Dx: Yes Comments: rib fx MUKESH SARAVIA MD 01/06/21 1027: SURGICAL PROGRESS NOTE Assessment/Plan Pt seen and examined. Agree with Ms. Romero's note Pt feels better, radha diet, although poor appetite, passing stools abd soft, ND, NTTP cont pulm toilet. GAVINO ROMERO APRN Jan 06, 2021 09:00 MUKESH SARAVIA MD Jan 06, 2021 10:27
--- NOTE | 2021-01-06 09:07 | PDOC ---
PULMONARY PROGRESS NOTES DATE: 01/06/21 TIME: 09:07 Subjective Patient not more short of air continues to have discomfort Vitals Vital Signs Date Time Temp Pulse Resp B/P (MAP) Pulse Ox O2 Delivery O2 Flow Rate FiO2 01/06/21 07:00 98.2 60 18 154/72 (99) 98 Room Air 98.2 Lungs: Clear Cardiovascular: S1, S2 Abdomen: Soft Neuro Exam: Alert Extremities: No Edema Labs Laboratory Tests Test 01/05/21 04:40 01/05/21 12:55 01/06/21 06:00 White Blood Count 6.5 x10^3/uL (4.0-11.0) 5.7 x10^3/uL (4.0-11.0) Red Blood Count 3.71 x10^6/uL (3.50-5.40) 3.81 x10^6/uL (3.50-5.40) Hemoglobin 11.0 g/dL (12.0-15.5) 11.4 g/dL (12.0-15.5) Hematocrit 32.1 % (36.0-47.0) 33.1 % (36.0-47.0) Mean Corpuscular Volume 86 fL (79-100) 87 fL (79-100) Mean Corpuscular Hemoglobin 30 pg (25-35) 30 pg (25-35) Mean Corpuscular Hemoglobin Concent 34 g/dL (31-37) 35 g/dL (31-37) Red Cell Distribution Width 14.1 % (11.5-14.5) 13.8 % (11.5-14.5) Platelet Count 200 x10^3/uL (140-400) 176 x10^3/uL (140-400) Neutrophils (%) (Auto) 71 % (31-73) Lymphocytes (%) (Auto) 14 % (24-48) Monocytes (%) (Auto) 14 % (0-9) Eosinophils (%) (Auto) 2 % (0-3) Basophils (%) (Auto) 1 % (0-3) Neutrophils # (Auto) 4.6 x10^3/uL (1.8-7.7) Lymphocytes # (Auto) 0.9 x10^3/uL (1.0-4.8) Monocytes # (Auto) 0.9 x10^3/uL (0.0-1.1) Eosinophils # (Auto) 0.1 x10^3/uL (0.0-0.7) Basophils # (Auto) 0.0 x10^3/uL (0.0-0.2) Sodium Level 131 mmol/L (136-145) 128 mmol/L (136-145) Potassium Level 3.8 mmol/L (3.5-5.1) 3.5 mmol/L (3.5-5.1) Chloride Level 96 mmol/L (98-107) 92 mmol/L (98-107) Carbon Dioxide Level 30 mmol/L (21-32) 30 mmol/L (21-32) Anion Gap 5 (6-14) 6 (6-14) Blood Urea Nitrogen 14 mg/dL (7-20) 11 mg/dL (7-20) Creatinine 0.7 mg/dL (0.6-1.0) 0.7 mg/dL (0.6-1.0) Estimated GFR (Cockcroft-Gault) 79.5 79.5 Glucose Level 95 mg/dL (70-99) 88 mg/dL (70-99) Calcium Level 7.8 mg/dL (8.5-10.1) 7.7 mg/dL (8.5-10.1) Prothrombin Time 24.2 SEC (11.7-14.0) 23.8 SEC (11.7-14.0) Prothromb Time International Ratio 2.2 (0.8-1.1) 2.2 (0.8-1.1) BUN/Creatinine Ratio 16 (6-20) Total Bilirubin 0.5 mg/dL (0.2-1.0) Aspartate Amino Transf (AST/SGOT) 24 U/L (15-37) Alanine Aminotransferase (ALT/SGPT) 28 U/L (14-59) Alkaline Phosphatase 117 U/L (46-116) Total Protein 6.3 g/dL (6.4-8.2) Albumin 2.5 g/dL (3.4-5.0) Albumin/Globulin Ratio 0.7 (1.0-1.7) Laboratory Tests Test 01/05/21 12:55 01/06/21 06:00 Prothrombin Time 24.2 SEC (11.7-14.0) 23.8 SEC (11.7-14.0) Prothromb Time International Ratio 2.2 (0.8-1.1) 2.2 (0.8-1.1) White Blood Count 5.7 x10^3/uL (4.0-11.0) Red Blood Count 3.81 x10^6/uL (3.50-5.40) Hemoglobin 11.4 g/dL (12.0-15.5) Hematocrit 33.1 % (36.0-47.0) Mean Corpuscular Volume 87 fL (79-100) Mean Corpuscular Hemoglobin 30 pg (25-35) Mean Corpuscular Hemoglobin Concent 35 g/dL (31-37) Red Cell Distribution Width 13.8 % (11.5-14.5) Platelet Count 176 x10^3/uL (140-400) Sodium Level 128 mmol/L (136-145) Potassium Level 3.5 mmol/L (3.5-5.1) Chloride Level 92 mmol/L (98-107) Carbon Dioxide Level 30 mmol/L (21-32) Anion Gap 6 (6-14) Blood Urea Nitrogen 11 mg/dL (7-20) Creatinine 0.7 mg/dL (0.6-1.0) Estimated GFR (Cockcroft-Gault) 79.5 BUN/Creatinine Ratio 16 (6-20) Glucose Level 88 mg/dL (70-99) Calcium Level 7.7 mg/dL (8.5-10.1) Total Bilirubin 0.5 mg/dL (0.2-1.0) Aspartate Amino Transf (AST/SGOT) 24 U/L (15-37) Alanine Aminotransferase (ALT/SGPT) 28 U/L (14-59) Alkaline Phosphatase 117 U/L (46-116) Total Protein 6.3 g/dL (6.4-8.2) Albumin 2.5 g/dL (3.4-5.0) Albumin/Globulin Ratio 0.7 (1.0-1.7) Medications Active Scripts Medications Dose Route/Sig Max Daily Dose Days Date Category Dilantin (Phenytoin Sodium Extended) 100 Mg Capsule 300 Mg PO TID 04/23/18 Reported Nisoldipine 17 Mg Tab.er.24h 17 Mg PO DAILY 04/23/18 Reported Simvastatin 40 Mg Tablet 40 Mg PO HS 04/23/18 Reported Ranitidine Hcl 300 Mg Capsule 300 Mg PO HS 04/23/18 Reported Warfarin Sodium 4 Mg Tablet 4 Mg PO DAILY 04/23/18 Reported Alendronate Sodium 70 Mg Tablet 70 Mg PO WEEKLY 04/23/18 Reported Calcium + D Soft Chewable Tab (Ca Carbonate/Vitamin D3/Vit K) 1 Each Tab.chew 1 Each PO DAILY 04/23/18 Reported Protonix (Pantoprazole Sodium) 20 Mg Tablet.dr 20 Mg PO DAILY 04/23/18 Reported Folic Acid 1 Mg Tablet 1 Mg PO DAILY 04/23/18 Reported Klor-Con M20 (Potassium Chloride) 20 Meq Tab.er.prt 20 Meq PO DAILY 04/23/18 Reported Hydrochlorothiazide Tablet (Hydrochlorothiazide) 25 Mg Tablet 25 Mg PO DAILY 04/23/18 Reported Losartan Potassium 100 Mg Tablet 100 Mg PO DAILY 04/23/18 Reported Carvedilol 25 Mg Tablet 25 Mg PO BIDWMEALS 04/23/18 Reported Impression . IMPRESSION: 1. Rib fractures on the right side secondary to fall. 2. Recent fall, etiology unclear. We will defer to PCP for further workup. 3. Negative CT head and CT cervical spine for any acute disease. 4. Hypertension. 5. Hyperlipidemia. Plan . Patient on room air, Chest x-ray no pneumothorax Incentive spirometry for atelectasis We will sign off, call if needed. MEJIA CERVANTES MD Jan 06, 2021 09:07
[2021-01-06] MEDS: POTASSIUM CHLORIDE 20 MEQ TABLET.ER. PO SCH (09:29)
[2021-01-06] MEDS: PANTOPRAZOLE 40 MG TABLET.DR. PO SCH (09:29)
[2021-01-06] MEDS: hydroCHLOROthiazide 25 MG TABLET PO SCH (09:29)
[2021-01-06] MEDS: PHENYTOIN SODIUM EXTENDED 100 MG CAPSULE PO SCH ×3 (09:29→22:17)
[2021-01-06] MEDS: LOSARTAN POTASSIUM 50 MG TABLET. PO SCH (09:30)
[2021-01-06] MEDS: CARVEDILOL 12.5 MG TABLET. PO SCH ×2 (09:31→16:50)
[2021-01-06] MEDS: FOLIC ACID 1 MG TABLET. PO SCH (09:31)
[2021-01-06] MEDS: LIDOCAINE (700MG/PATCH) PATCH. TD SCH (09:32)
[2021-01-06 10:41] VITALS: BP 163/62
--- NOTE | 2021-01-06 10:42 | PN ---
DATE: 01/06/2021 SUBJECTIVE: The patient is resting, slightly propped up in bed, no apparent distress. She continued to complain of pain whenever she tries to move and take a deep breath; however, she denied any shortness of breath, cough or phlegm. PHYSICAL EXAMINATION: GENERAL: When I examined her, she looked pale, somewhat cachectic, but not jaundiced, cyanosed, no lymphadenopathy, no thyromegaly, no jugular venous distention. No limb edema. VITAL SIGNS: Her heart rate was 60, blood pressure was 154/72, temperature was 98, respiratory rate was 18 and oxygen saturation was 98% on room air. HEAD, EYES, EARS, NOSE, AND THROAT: Normocephalic, atraumatic. NECK: Supple. HEART: Showed normal first and second heart sounds. No gallop or murmur. CHEST: Shows central trachea, equal bilateral chest expansion, air entry, vesicular breath sounds. I could not really appreciate any crepitation or rhonchi. ABDOMEN: Soft and nontender. NEUROLOGIC: She is awake, alert, responding appropriately. All cranial nerves intact. She moves extremities without difficulty, although she is mostly bedbound. Her intake and output are incompletely recorded. LABORATORY DATA: Her lab work this morning showed a white cell count 5700, hemoglobin 11, hematocrit 33, MCV 87 and platelet count of 176,000. Serum sodium is 128, potassium 3.5, chloride 92, bicarbonate 30, anion gap of 6, BUN 11, creatinine 0.7. Estimated GFR was 79 mL per minute. Her glucose was 88, calcium was 7.7. Total bilirubin, AST, ALT, alkaline phosphatase normal. Total protein 6.3, albumin 2.7. Her prothrombin time, INR were 23.8 and 2.2, which are well within therapeutic range. ASSESSMENT: 1. Fall with resultant right-sided fracture including right fifth through tenth rib fracture. The patient has no pneumothorax or hemothorax. 2. The patient has multiple other medical problems including: A. Hypertension. B. Hyperlipidemia. C. Atrial fibrillation. D. Seizure disorder. E. Gastroesophageal reflux disease. F. History of cerebrovascular accident. G. 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 H. Senile macular degeneration. I. Osteoporosis. PLAN: My plan is to continue with pain management. I added Lidoderm patches to the right side on in the morning and off at nighttime, started also on oxycodone 5 mg every 4 hours as needed, together with Colace and MiraLax. I did consult Dr. Melvin for possible nerve block and if her pain is well controlled, she might be able to be discharged to a care home facility tomorrow. JASMIN DR: Jaqueline TID: [id number]
--- NOTE | 2021-01-06 10:54 | RAD ---
Portable chest x-ray compared to CT scan of the chest dated 01/04/2021 for follow-up on rib fractures . FINDINGS: There are mildly displaced and distracted rib fractures posteriorly at the right fifth and sixth ribs, with nondisplaced fracture the right seventh rib. New subtle parenchymal opacities in bot h lung bases may reflect atelectasis or developing infiltrates. Degenerative changes of both shoulder s are also noted. No pneumothorax. No pleural effusions. IMPRESSION: 1. Developing infiltrates or atelectasis in both lung bases. 2. Multiple right rib fractures as described. 3. No evidence of pneumothorax or hemothorax. Electronically signed by: Daryl Medley MD (01/06/2021 10:51 AM) [id number]
[2021-01-06] MEDS: DEMECLOCYCLINE HCL 150 MG TABLET. PO SCH ×2 (12:27→22:17)
[2021-01-06 15:00] VITALS: BP 155/62
[2021-01-06] MEDS: oxyCODONE IR 5 MG TABLET PO PRN ×2 (16:50→23:49)
[2021-01-06 19:15] VITALS: BP 118/64
[2021-01-06] MEDS: PATCH REMOVAL. MC SCH (21:00)
[2021-01-06] MEDS: ATORVASTATIN CALCIUM 20 MG TABLET PO SCH (22:17)
[2021-01-06 23:06] VITALS: BP 151/59
[2021-01-07 03:08] VITALS: BP 129/45
[2021-01-07 07:00] VITALS: BP 148/59
[2021-01-07] MEDS: DEMECLOCYCLINE HCL 150 MG TABLET. PO SCH ×2 (07:40→20:17)
[2021-01-07] MEDS: PANTOPRAZOLE 40 MG TABLET.DR. PO SCH (07:40)
[2021-01-07 07:45] LABS: PROTHROMBIN TIME PATIENT 21.8 SEC (11.7-14.0)
[2021-01-07 07:48] LABS: CALCIUM 7.9 mg/dL (8.5-10.1); CREATININE 0.7 mg/dL (0.6-1.0); GFR 79.5
[2021-01-07] MEDS: POTASSIUM CHLORIDE 20 MEQ TABLET.ER. PO SCH (08:58)
[2021-01-07] MEDS: CARVEDILOL 12.5 MG TABLET. PO SCH ×2 (08:58→17:12)
[2021-01-07] MEDS: CALCIUM CARB/VIT D3 500/200 TABLET. PO SCH (08:58)
[2021-01-07] MEDS: hydroCHLOROthiazide 25 MG TABLET PO SCH (08:58)
[2021-01-07] MEDS: FOLIC ACID 1 MG TABLET. PO SCH (08:59)
[2021-01-07] MEDS: LOSARTAN POTASSIUM 50 MG TABLET. PO SCH (08:59)
[2021-01-07] MEDS: LIDOCAINE (700MG/PATCH) PATCH. TD SCH (09:01)
--- NOTE | 2021-01-07 09:04 | PDOC ---
GAVINO ROMERO [employer] 01/07/21 0904: SURGICAL PROGRESS NOTE DATE: 01/07/21 TIME: 09:02 Subjective up in chair tired low appetite some pain with activity Vital Signs Vital Signs Date Time Temp Pulse Resp B/P (MAP) Pulse Ox O2 Delivery O2 Flow Rate FiO2 01/07/21 07:00 98.1 66 15 148/59 (88) 95 Room Air 98.1 I&O Intake and Output 01/07/21 07:00 Intake Total 120 ml Output Total 1750 ml Balance -1630 ml Intake Oral 120 ml Output Urine Total 1750 ml General: Cooperative, No acute distress Abdomen: Soft, No tenderness Labs Laboratory Tests Test 01/05/21 12:55 01/06/21 06:00 01/07/21 06:45 Prothrombin Time 24.2 SEC (11.7-14.0) 23.8 SEC (11.7-14.0) 21.8 SEC (11.7-14.0) Prothromb Time International Ratio 2.2 (0.8-1.1) 2.2 (0.8-1.1) 1.9 (0.8-1.1) White Blood Count 5.7 x10^3/uL (4.0-11.0) Red Blood Count 3.81 x10^6/uL (3.50-5.40) Hemoglobin 11.4 g/dL (12.0-15.5) Hematocrit 33.1 % (36.0-47.0) Mean Corpuscular Volume 87 fL (79-100) Mean Corpuscular Hemoglobin 30 pg (25-35) Mean Corpuscular Hemoglobin Concent 35 g/dL (31-37) Red Cell Distribution Width 13.8 % (11.5-14.5) Platelet Count 176 x10^3/uL (140-400) Sodium Level 128 mmol/L (136-145) 124 mmol/L (136-145) Potassium Level 3.5 mmol/L (3.5-5.1) 3.0 mmol/L (3.5-5.1) Chloride Level 92 mmol/L (98-107) 89 mmol/L (98-107) Carbon Dioxide Level 30 mmol/L (21-32) 29 mmol/L (21-32) Anion Gap 6 (6-14) 6 (6-14) Blood Urea Nitrogen 11 mg/dL (7-20) 15 mg/dL (7-20) Creatinine 0.7 mg/dL (0.6-1.0) 0.7 mg/dL (0.6-1.0) Estimated GFR (Cockcroft-Gault) 79.5 79.5 BUN/Creatinine Ratio 16 (6-20) Glucose Level 88 mg/dL (70-99) 98 mg/dL (70-99) Calcium Level 7.7 mg/dL (8.5-10.1) 7.9 mg/dL (8.5-10.1) Total Bilirubin 0.5 mg/dL (0.2-1.0) Aspartate Amino Transf (AST/SGOT) 24 U/L (15-37) Alanine Aminotransferase (ALT/SGPT) 28 U/L (14-59) Alkaline Phosphatase 117 U/L (46-116) Total Protein 6.3 g/dL (6.4-8.2) Albumin 2.5 g/dL (3.4-5.0) Albumin/Globulin Ratio 0.7 (1.0-1.7) Laboratory Tests Test 01/07/21 06:45 Prothrombin Time 21.8 SEC (11.7-14.0) Prothromb Time International Ratio 1.9 (0.8-1.1) Sodium Level 124 mmol/L (136-145) Potassium Level 3.0 mmol/L (3.5-5.1) Chloride Level 89 mmol/L (98-107) Carbon Dioxide Level 29 mmol/L (21-32) Anion Gap 6 (6-14) Blood Urea Nitrogen 15 mg/dL (7-20) Creatinine 0.7 mg/dL (0.6-1.0) Estimated GFR (Cockcroft-Gault) 79.5 Glucose Level 98 mg/dL (70-99) Calcium Level 7.9 mg/dL (8.5-10.1) Problem List Problems Medical Problems: (1) Closed traumatic nondisplaced fracture of multiple ribs of right side Status: Acute (2) Fall Status: Acute (3) Traumatic hematoma of scalp Status: Acute Assessment/Plan medical management of rib fx no surgical needs, will sign off Justicifation of Admission Dx: Justifications for Admission: Justification of Admission Dx: Yes MUKESH SARAVIA MD 01/07/21 1409: SURGICAL PROGRESS NOTE Assessment/Plan Pt seen and examined. Agree with Ms. Romero's note Pt with c/o soreness, but otherwise doing well abd soft OK to work towards d/c will sign off, but please call for questions. GAVINO ROMERO APRN Jan 07, 2021 09:04 MUKESH SARAVIA MD Jan 07, 2021 14:09
--- NOTE | 2021-01-07 10:10 | NUR ---
SW following. Discussed with RN, CLARITZA spoke with pt's daughter, Rashmi RE JOAQUINA. Rashmi would like referral faxed to [facility], and [facility] if [facility] declines. CLARITZA faxed referral to [facility], awaiting acceptance decision and COVID result. CLARITZA will continue to follow. Addendum: 01/07/21 at 1613 by STACEY JERRY [facility] declined after 6 hours stating they don't have any beds until middle of next week. CLARITZA faxed referral to [facility], [facility] and notified pt's daughter, Rashmi. Awaiting acceptance decision from [facility].
[2021-01-07] MEDS: POLYETHYLENE GLYCOL 3350 17 GM PACKET. PO SCH (10:42)
[2021-01-07] MEDS: PHENYTOIN SODIUM EXTENDED 100 MG CAPSULE PO SCH ×3 (10:42→20:17)
[2021-01-07] MEDS: DOCUSATE SODIUM 100 MG CAPSULE. PO SCH ×2 (10:42→20:17)
[2021-01-07] MEDS: POTASSIUM CL 40MEQ IN 0.9%NACL 1,000 ML IV SCH ×2 (10:43→23:05)
[2021-01-07 11:00] VITALS: BP 142/55
--- NOTE | 2021-01-07 11:28 | PN ---
DATE: 01/07/2021 SUBJECTIVE: The patient is sitting slightly propped up in her recliner in no apparent distress. She has no pain when she is resting. The pain gets worse when she starts moving or taking a deep breath. She apparently managed to sit on the edge of the bed yesterday for about 10 minutes without difficulty. She is currently on lidocaine patches as well as oxycodone. PHYSICAL EXAMINATION: GENERAL: When I examined her this morning, she looked pale, no jaundice, cyanosis or thyromegaly. No jugular venous distention. No limb edema. VITAL SIGNS: Her heart rate was 66, blood pressure was 148/59, temperature was 98.1, respiratory rate was 15 and oxygen saturation was 95%. HEAD, EYES, EARS, NOSE, AND THROAT: Showed she is normocephalic, atraumatic. NECK: Supple. HEART: Showed normal first and second heart sounds. No gallop, rub or murmur. CHEST: Clear to auscultation. No crepitation or rhonchi. ABDOMEN: Distended, soft, nontender. NEUROLOGIC: She was grossly intact. LABORATORY DATA: Her lab work as of this morning showed a prothrombin time of 21.8, INR 1.9. Her serum sodium is down further to 124, potassium 3, chloride 89, bicarbonate 29, anion gap of 6, BUN 15, creatinine 0.7. Estimated GFR was 79.5 mL per minute. Her glucose was 98, calcium was 7.9. Her white cell count was 5700, hemoglobin 11.4, hematocrit 33, MCV 87 and platelet count of 176,000. ASSESSMENT: 1. Fall with resultant right-sided rib fractures, including right fifth through the tenth rib fracture. The patient has no pneumothorax or hemothorax. 2. The patient has multiple other medical problems including: A. Hypertension. B. Hyperlipidemia. C. Atrial fibrillation. D. Seizure disorder. E. Gastroesophageal reflux disease. F. History of cerebrovascular accident. G. 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 H. Senile macular degeneration. I. Osteoporosis. K. Hypokalemia. PLAN: My plan is to continue with pain management, in the form of oxycodone and Lidoderm patches. I will start her on Colace and MiraLax to avoid constipation. I will start her on normal saline with 40 mEq of potassium chloride. SHELLY DR: Jaqueline TID: [id number]
--- NOTE | 2021-01-07 11:47 | NUR ---
Rosenberg Catheter was removed per doctor ordered. Patient tolerated the procedure well.
[2021-01-07 15:00] VITALS: BP 150/53
[2021-01-07] MEDS: oxyCODONE IR 5 MG TABLET PO PRN (17:59)
[2021-01-07 19:00] VITALS: BP 138/48
[2021-01-07] MEDS: ATORVASTATIN CALCIUM 20 MG TABLET PO SCH (20:17)
[2021-01-07] MEDS: PATCH REMOVAL. MC SCH (20:20)
[2021-01-07 23:01] VITALS: BP 115/45
[2021-01-08] MEDS: oxyCODONE IR 5 MG TABLET PO PRN ×2 (01:41→12:52)
[2021-01-08 03:22] VITALS: BP 145/56
[2021-01-08] MEDS: DEMECLOCYCLINE HCL 150 MG TABLET. PO SCH ×2 (06:02→21:00)
[2021-01-08 07:00] VITALS: BP 156/62
[2021-01-08] MEDS: CALCIUM CARB/VIT D3 500/200 TABLET. PO SCH (08:14)
[2021-01-08] MEDS: PANTOPRAZOLE 40 MG TABLET.DR. PO SCH (08:14)
[2021-01-08] MEDS: LOSARTAN POTASSIUM 50 MG TABLET. PO SCH (08:16)
[2021-01-08] MEDS: PHENYTOIN SODIUM EXTENDED 100 MG CAPSULE PO SCH ×3 (08:16→21:00)
[2021-01-08] MEDS: hydroCHLOROthiazide 25 MG TABLET PO SCH (08:17)
[2021-01-08] MEDS: CARVEDILOL 12.5 MG TABLET. PO SCH ×2 (08:17→16:48)
[2021-01-08] MEDS: FOLIC ACID 1 MG TABLET. PO SCH (08:18)
[2021-01-08] MEDS: DOCUSATE SODIUM 100 MG CAPSULE. PO SCH ×2 (08:18→21:00)
[2021-01-08] MEDS: POTASSIUM CHLORIDE 20 MEQ TABLET.ER. PO SCH (08:18)
[2021-01-08] MEDS: LIDOCAINE (700MG/PATCH) PATCH. TD SCH (08:19)
[2021-01-08] MEDS: POLYETHYLENE GLYCOL 3350 17 GM PACKET. PO SCH (08:19)
[2021-01-08 08:35] LABS: CALCIUM 7.9 mg/dL (8.5-10.1); CREATININE 0.6 mg/dL (0.6-1.0); POTASSIUM 3.9 mmol/L (3.5-5.1)
[2021-01-08] MEDS: DRONABINOL 2.5 MG CAPSULE. PO SCH ×2 (10:50→16:48)
[2021-01-08 11:00] VITALS: BP 101/45
--- NOTE | 2021-01-08 11:19 | EKG ---
[facility] [address] [place] [address] Test Date: 2021-01-08 Test Time: 11:12:31 Pat Name: COLLEEN LANDIN Department: Room: 400 1 Gender: F Director Operating Room: : 1935 Requested By: SHILPA CHEN Order Number: [id number] Reading MD: Robson Caban MD Measurements Intervals [place] Rate: 63 P: 45 [place]: 286 QRS: -11 QRSD: 66 T: 38 QT: 406 QTc: 419 Interpretive Statements SINUS RHYTHM PROLONGED [place] INTERVAL Electronically Signed On 01-10-2021 10:35:37 CDT by Robson Caban MD
--- NOTE | 2021-01-08 11:33 | RAD ---
XR CHEST 1V History: Worsening chest pain and shortness of breath. Comparison: 01/06/2021. CT chest 01/04/2021 Technique: Portable AP radiograph of the chest. Findings: The lungs are adequately inflated. No focal consolidation, pleural effusion or pneumothorax. Cardiome diastinal silhouette is enlarged. There is a moderate hiatal hernia. Pulmonary vasculature is within normal limits. Redemonstrated right posterior fifth, sixth and seventh rib fractures. Degenerative ch anges of the left greater than right shoulders. Soft tissues are unremarkable. Impression: 1. No acute cardiopulmonary process. 2. Redemonstrated posterior right rib fractures. No pneumothorax or pleural effusion. Electronically signed by: Gurpreet Kathleen MD (01/08/2021 11:30 AM) [id number]
[2021-01-08] MEDS: POTASSIUM CL 40MEQ IN 0.9%NACL 1,000 ML IV SCH (13:16)
[2021-01-08 15:00] VITALS: BP 132/51
--- NOTE | 2021-01-08 17:38 | PN ---
DATE: 01/08/2021 SUBJECTIVE: The patient is resting, slightly propped up in bed, continue to complain of chest pain. She denied any shortness of breath, cough, phlegm or hemoptysis. PHYSICAL EXAMINATION: GENERAL: When I examined her, she looked pale, but no jaundice, cyanosis or thyromegaly. No jugular venous distention. No lower limb edema. VITAL SIGNS: Her heart rate was 67, blood pressure is 156/92, temperature 97.9, respiratory rate was 14 and oxygen saturation was 96% on room air. HEAD, EYES, EARS, NOSE, AND THROAT: Normocephalic, atraumatic. NECK: Supple. HEART: Showed normal first and second heart sounds. No gallop or murmur. CHEST: Shows central trachea, equal bilateral chest expansion, air entry, vesicular breath sounds. No crepitation or rhonchi. ABDOMEN: Slightly distended, soft, nontender. NEUROLOGIC: She was somewhat lethargic, but arousable. All cranial nerves are intact. Moves extremities without difficulty. Her intake and output are incompletely recorded. LABORATORY DATA: Her lab work this morning showed a serum sodium of 130, potassium 3.9, chloride 94, bicarbonate 30, anion gap of 6, BUN 12, creatinine 0.6. Estimated GFR was 95 mL per minute. Her glucose was 102, calcium was 7.9. ASSESSMENT: 1. Fall with resultant right sided rib fractures including right fifth through tenth rib fractures and there is no pneumothorax or hemothorax. 2. The patient has multiple other medical problems including: A. Hypertension. B. Hyperlipidemia. C. Atrial fibrillation. D. Seizure disorder. E. Gastroesophageal reflux disease. F. History of cerebrovascular accident. G. Chronic hyponatremia due to syndrome with appropriate secretion of antidiuretic hormone, for which she is now on demeclocycline. H. Age-related macular degeneration. I. Osteoporosis. K. Hypokalemia. The patient is complaining of chest pain. PLAN: My plan is to continue with IV fluids for now. Continue with oxycodone and Lidoderm patches. Continue with PT, OT. I will add SCDs for DVT prophylaxis. I will repeat chest x-ray, do a 12-lead EKG and troponin. AURY/JOSH DR: Jaqueline TID: [id number]
[2021-01-08 19:15] VITALS: BP 126/54
[2021-01-08] MEDS: PATCH REMOVAL. MC SCH (21:00)
[2021-01-08] MEDS: ATORVASTATIN CALCIUM 20 MG TABLET PO SCH (21:00)
[2021-01-08] MEDS: fentaNYL PF VIAL 100 MCG/2 ML VIAL IVP PRN (21:24)
[2021-01-08 23:19] VITALS: BP 130/45
[2021-01-09] VITALS (7 sets, daily range): BP systolic 126–168; BP diastolic 41–90
[2021-01-09] MEDS: fentaNYL PF VIAL 100 MCG/2 ML VIAL IVP PRN (01:31)
[2021-01-09] MEDS: POTASSIUM CL 40MEQ IN 0.9%NACL 1,000 ML IV SCH (01:55)
[2021-01-09] MEDS: oxyCODONE IR 5 MG TABLET PO PRN ×2 (03:39→14:46)
[2021-01-09] MEDS: PANTOPRAZOLE 40 MG TABLET.DR. PO SCH (07:55)
[2021-01-09] MEDS: DEMECLOCYCLINE HCL 150 MG TABLET. PO SCH ×3 (07:55→22:56)
--- NOTE | 2021-01-09 09:07 | PN ---
DATE: 01/09/2021 SUBJECTIVE: The patient is resting, slightly propped up in bed, seems to be very confused, hallucinating, talks about children that were in her room. She did complain of anterior chest pain yesterday and we did repeat chest x-ray, which showed no evidence of any pneumothorax or pleural effusion. Her EKG showed that she was in sinus rhythm with prolonged GA interval and her cardiac enzymes showed troponin to be less than 0.017. She was evaluated by physical therapy on 01/06 and she has not been seen since then. PHYSICAL EXAMINATION: GENERAL: When I examined her this morning, she was pale, somewhat cachectic, but not jaundiced or cyanosed, no lymphadenopathy, no thyromegaly, no jugular venous distention. No limb edema. VITAL SIGNS: Her heart rate was 73, blood pressure is 126/90, temperature was 98.3, respiratory rate was 18 and oxygen saturation was 91%. HEAD, EYES, EARS, NOSE, AND THROAT: Normocephalic, atraumatic. NECK: Supple. HEART: Showed normal first and second heart sounds, no gallop, rub or murmur. CHEST: Clear to auscultation, no crepitation or rhonchi. ABDOMEN: Distended, soft, nontender. NEUROLOGIC: She was confused, but without any obvious lateralizing sign. LABORATORY DATA: As of yesterday showed a serum sodium 130, potassium 3.9, chloride 94, bicarbonate 30, anion gap of 6, BUN 12, creatinine 0.6. Estimated GFR was 95 mL per minute. Her glucose 102, calcium was 7.9. ASSESSMENT: 1. Fall with resultant right sided rib fractures including right fifth through tenth rib fractures, but there is no pneumothorax or hemothorax. 2. The patient has multiple other medical problems including: A. Hypertension. B. Hyperlipidemia. C. Atrial fibrillation. D. Seizure disorder. E. Gastroesophageal reflux disease. F. History of cerebrovascular accident. G. Chronic hyponatremia due to syndrome with inappropriate secretion of antidiuretic hormone, for which she is now on demeclocycline. I. Age-related macular degeneration. J. Osteoporosis. K. Hypokalemia. PLAN: To discontinue IV fluid. Continue with oxycodone and Lidoderm patches. Continue with PT, OT. Continue with SCDs for DVT prophylaxis and we will discharge her to a intermediate facility once she is accepted. AMM/AVR DR: Jaqueline TID: [id number]
[2021-01-09] MEDS: POLYETHYLENE GLYCOL 3350 17 GM PACKET. PO SCH (09:49)
[2021-01-09] MEDS: hydroCHLOROthiazide 25 MG TABLET PO SCH (09:50)
[2021-01-09] MEDS: DOCUSATE SODIUM 100 MG CAPSULE. PO SCH ×3 (09:50→22:57)
[2021-01-09] MEDS: CARVEDILOL 12.5 MG TABLET. PO SCH ×2 (09:50→17:36)
[2021-01-09] MEDS: POTASSIUM CHLORIDE 20 MEQ TABLET.ER. PO SCH (09:50)
[2021-01-09] MEDS: CALCIUM CARB/VIT D3 500/200 TABLET. PO SCH (09:51)
[2021-01-09] MEDS: FOLIC ACID 1 MG TABLET. PO SCH (09:51)
[2021-01-09] MEDS: PHENYTOIN SODIUM EXTENDED 100 MG CAPSULE PO SCH ×3 (09:51→22:56)
[2021-01-09] MEDS: LOSARTAN POTASSIUM 50 MG TABLET. PO SCH (09:52)
[2021-01-09] MEDS: LIDOCAINE (700MG/PATCH) PATCH. TD SCH (09:52)
--- NOTE | 2021-01-09 10:14 | RAD ---
EXAM: AP pelvis, AP and lateral view right hip DATE: 01/09/2021 9:47 AM INDICATION: Reason: fall with pain in the right hip / Spl. Instructions: / History: . COMPARISON: No Prior FINDINGS/ IMPRESSION: No evidence of acute fracture or dislocation. Vascular calcifications are seen. Bilateral hip joint osteoarthritis. No pubic symphysis or SI joint diastases. Iliac crest enthesophytes. Electronically signed by: Scott Crowder MD (01/09/2021 10:11 AM) SONDRA
[2021-01-09] MEDS: DRONABINOL 2.5 MG CAPSULE. PO SCH ×2 (12:27→17:35)
[2021-01-09] MEDS: ATORVASTATIN CALCIUM 20 MG TABLET PO SCH ×2 (21:00→22:56)
[2021-01-09] MEDS: PATCH REMOVAL. MC SCH (21:00)
--- NOTE | 2021-01-09 23:34 | NUR ---
Some medications were non administered due to patient being non compliant and spitting out meds.
[2021-01-10] VITALS (8 sets, daily range): BP systolic 123–173; BP diastolic 48–63
[2021-01-10 04:43] LABS: CALCIUM 7.6 mg/dL (8.5-10.1); CREATININE 0.6 mg/dL (0.6-1.0); POTASSIUM 3.4 mmol/L (3.5-5.1)
[2021-01-10] MEDS: PANTOPRAZOLE 40 MG TABLET.DR. PO SCH (07:30)
--- NOTE | 2021-01-10 10:11 | NUR ---
CLARITZA following. Discussed with RN, CLARITZA left voicemail for [facility] to determine acceptance decision, awaiting return call. Pt can discharge once accepting facility found. CLARITZA will continue to follow. Addendum: 01/10/21 at 1517 by STACEY JERRY Pt accepted at [facility] ([facility]) for discharge tomorrow (01/11/21). CLARITZA to arrange stretcher transportation as [facility] does not have stretcher transportation.
--- NOTE | 2021-01-10 11:11 | PN ---
DATE: 01/10/2021 SUBJECTIVE: The patient continued to be somewhat delirious, hallucinating, seeing children. She is also very lethargic and there was some abnormal finding on her lower jaw on the left side. I do not know whether this is the toothpaste or the Fixodent that she used to fix her denture or she does have underlying, though I managed to remove some of it with a Q-tip, some of it is still stuck to it that the patient herself does not seem to be in pain, but I recommended that she should be seen by a dentist once she is discharged. She was not accepted at [facility] and she was referred to [facility], but she was not officially accepted yet. PHYSICAL EXAMINATION: GENERAL: When I saw her this morning, she was somewhat pale, cachectic, but not jaundiced, cyanosed or thyromegaly. No jugular venous distention. No lower limb edema. VITAL SIGNS: Her heart rate was 70, blood pressure was 169/58, temperature was 98, respiratory rate 20, and oxygen saturation was 90% on room air. Examination of the rest of clinical exam is stable. LABORATORY DATA: As of this morning showed a serum sodium 127, potassium 3.4, chloride 91, bicarbonate 30, anion gap of 6, BUN 10, creatinine 0.6, estimated GFR was 95 mL per minute. Her glucose 115, calcium was 7.6. Her prothrombin time was 20.8 and INR 1.9. PLAN: My plan is to continue with all her current medication. Continue with pain management. Continue with physical and occupational therapy. She will be discharged tomorrow to [facility] if she was officially accepted. I reviewed with all her medications and she is actually on hydrochlorothiazide that they will discontinue. TOD/JOSH DR: Jaqueline TID: [id number]
[2021-01-10] MEDS: DEMECLOCYCLINE HCL 150 MG TABLET. PO SCH ×2 (11:19→21:00)
[2021-01-10] MEDS: CARVEDILOL 12.5 MG TABLET. PO SCH ×2 (11:19→17:00)
[2021-01-10] MEDS: PHENYTOIN SODIUM EXTENDED 100 MG CAPSULE PO SCH ×3 (11:20→21:00)
[2021-01-10] MEDS: CALCIUM CARB/VIT D3 500/200 TABLET. PO SCH (11:21)
[2021-01-10] MEDS: POTASSIUM CHLORIDE 20 MEQ TABLET.ER. PO SCH (11:22)
[2021-01-10] MEDS: FOLIC ACID 1 MG TABLET. PO SCH (11:22)
[2021-01-10] MEDS: DOCUSATE SODIUM 100 MG CAPSULE. PO SCH ×2 (11:23→21:00)
[2021-01-10] MEDS: POLYETHYLENE GLYCOL 3350 17 GM PACKET. PO SCH (11:24)
[2021-01-10] MEDS: LOSARTAN POTASSIUM 50 MG TABLET. PO SCH (11:24)
[2021-01-10] MEDS: LIDOCAINE (700MG/PATCH) PATCH. TD SCH (11:27)
[2021-01-10] MEDS: DRONABINOL 2.5 MG CAPSULE. PO SCH ×2 (11:30→16:30)
[2021-01-10 12:16] LABS: PROTHROMBIN TIME PATIENT 21.1 SEC (11.7-14.0)
[2021-01-10] MEDS: WARFARIN 4 MG TABLET. PO SCH (16:00)
[2021-01-10 16:10] LABS: BASO # 0.1 x10^3/uL (0.0-0.2); BASO % 1 % (0-3); EOS # 0.2 x10^3/uL (0.0-0.7); EOS % 2 % (0-3); HEMATOCRIT 33.6 % (36.0-47.0); HEMOGLOBIN 11.1 g/dL (12.0-15.5); LYMPH # 0.9 x10^3/uL (1.0-4.8); LYMPH % 11 % (24-48); MEAN CORPUSCULAR HEMOGLOBIN 29 pg (25-35); MEAN CORPUSCULAR HGB CONC 33 g/dL (31-37); MEAN CORPUSCULAR VOLUME 88 fL (79-100); MONO % 13 % (0-9); NEUT # 5.8 x10^3/uL (1.8-7.7); NEUT % 73 % (31-73); PLATELET COUNT 150 x10^3/uL (140-400); RED BLOOD COUNT 3.82 x10^6/uL (3.50-5.40); WHITE BLOOD COUNT 7.9 x10^3/uL (4.0-11.0)
[2021-01-10 16:47] LABS: % BANDS 11 % (0-9); % EOS 3 % (0-5); % LYMPHS 14 % (24-48); % MONOS 15 % (0-10); % SEGS 57 % (35-66)
[2021-01-10 16:49] LABS: PLATELET CLUMP PRESENT; PLT ESTIMATE ADEQUATE (ADEQUATE)
--- NOTE | 2021-01-10 16:56 | NUR ---
UA obtained via strait cath. 300cc urine output.
[2021-01-10 17:43] LABS: BILIRUBIN,URINE NEGATIVE (NEG); CLARITY,URINE CLEAR; COLOR,URINE YELLOW; NITRITE,URINE NEGATIVE (NEG); PROTEIN,URINE NEGATIVE (NEG-TRACE)
[2021-01-10 17:58] LABS: BACTERIA,URINE 0 /HPF (0-FEW); RBC,URINE OCC /HPF (0-2); WBC,URINE 0 /HPF (0-4)
--- NOTE | 2021-01-10 20:08 | NUR ---
Approximately 1905 this RN and Shwetha RN notified that patient was discovered laying on the floor at bedside with no clothing on. Patient unable to verbalize needs at time which is consistent with behavior throughout day. Small abrasion observed to right upper arm and left shoulder, patient also has multiple small lesions from scratching at self, unknown if abrasions were caused by fall. Nursing supervisor [employer], Aislinn CHINCHILLA, notified of fall and Dr. Case notified of fall. Head CT ordered and TSH ordered for AM labs. No new signs/symptoms of injury at this time, vital signs stable. Multiple old bruises observed from previous fall that caused admission. Patient assisted back to bed and bed alarm on, 3 side rails up. Will continue to monitor.
[2021-01-10] MEDS: ATORVASTATIN CALCIUM 20 MG TABLET PO SCH (21:00)
--- NOTE | 2021-01-10 21:52 | RAD ---
EXAM: CT Head without IV contrast CLINICAL HISTORY: Reason: fall, on blood thinners / Spl. Instructions: / History: COMPARISON: 01/04/2021. TECHNIQUE: Routine CT of the head without contrast. PQRS compliance statement - One or more of the following individualized dose reduction techniques wer e utilized for this study: 1. Automated exposure control 2. Adjustment of the mA and/or kV according to patient size 3. Use of iterative reconstruction technique FINDINGS: There is no evidence of hemorrhage, mass or extra-axial fluid collection. Sherman-white differentiation is maintained with no evidence of edema. 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 Ex vacuo dilatation right lateral ventricle. Subcort ical, periventricular as well as deep white matter foci of hypoattenuation likely changes of chronic small vessel disease. There is no mass effect or shift of the intracranial structures. The ventricles, basilar cisterns and cortical sulci are normal in size and configuration for the cirilo ents stated age. The cerebellum and brainstem are unremarkable. The calvarium demonstrates no evidence of fracture or focal lesion. There is normal aeration of the visualized paranasal sinuses and mastoid air cells. The visualized portions of the orbits are normal. Scalp hematoma right posterior parietal region. Atherosclerotic calcifications of the intracranial in ternal carotid and vertebral arteries is seen. IMPRESSION: 1. No evidence for acute intracranial process. 2. White matter changes likely chronic small vessel disease. 3. Old infarct right occipital region with ex vacuo dilatation right lateral ventricle. Electronically signed by: Scott Crowder MD (01/10/2021 9:49 PM) SONDRA
[2021-01-10] MEDS: PATCH REMOVAL. MC SCH (22:20)
--- NOTE | 2021-01-10 23:00 | NUR ---
CT Scan of Head completed. Negative for acute bleed.
[2021-01-11 02:31] VITALS: BP 153/64
[2021-01-11 07:00] VITALS: BP 155/65
[2021-01-11] MEDS: DEMECLOCYCLINE HCL 150 MG TABLET. PO SCH ×2 (07:00→21:01)
[2021-01-11] MEDS: PANTOPRAZOLE 40 MG TABLET.DR. PO SCH (07:30)
[2021-01-11 07:35] LABS: HEMATOCRIT 32.4 % (36.0-47.0); HEMOGLOBIN 11.3 g/dL (12.0-15.5); RED BLOOD COUNT 3.8 x10^6/uL (3.50-5.40); RED CELL DISTRIBUTION WIDTH 13.7 % (11.5-14.5); WHITE BLOOD COUNT 7.3 x10^3/uL (4.0-11.0)
[2021-01-11] MEDS: CARVEDILOL 12.5 MG TABLET. PO SCH ×2 (08:00→17:00)
[2021-01-11 08:01] LABS: PROTHROMBIN TIME PATIENT 22.1 SEC (11.7-14.0)
[2021-01-11 08:12] LABS: CALCIUM 7.8 mg/dL (8.5-10.1); CREATININE 0.7 mg/dL (0.6-1.0); GFR 79.5
[2021-01-11 08:15] LABS: POTASSIUM 2.9 mmol/L (3.5-5.1)
[2021-01-11] MEDS: POTASSIUM CHLORIDE 20 MEQ TABLET.ER. PO SCH (09:00)
[2021-01-11] MEDS ORDERED: NON FORMULARY ITEM (Alendronate Sodium 70 MG) PO SCH (09:00)
[2021-01-11] MEDS: LOSARTAN POTASSIUM 50 MG TABLET. PO SCH (09:00)
[2021-01-11] MEDS: CALCIUM CARB/VIT D3 500/200 TABLET. PO SCH (09:00)
[2021-01-11] MEDS: LIDOCAINE (700MG/PATCH) PATCH. TD SCH (09:00)
[2021-01-11] MEDS: FOLIC ACID 1 MG TABLET. PO SCH (09:00)
[2021-01-11] MEDS: DOCUSATE SODIUM 100 MG CAPSULE. PO SCH ×2 (09:00→21:00)
[2021-01-11] MEDS: POLYETHYLENE GLYCOL 3350 17 GM PACKET. PO SCH (09:00)
[2021-01-11] MEDS: POTASSIUM CL 40MEQ IN 0.9%NACL 1,000 ML IV SCH ×2 (09:42→19:21)
--- NOTE | 2021-01-11 10:48 | NUR ---
SW following. Discussed with RN, pt NPO for a bedside swallow eval this morning. Transportation cancelled, facility and daughter notified. SW will continue to follow.
[2021-01-11 11:00] VITALS: BP 193/67
[2021-01-11] MEDS: DRONABINOL 2.5 MG CAPSULE. PO SCH ×2 (11:30→16:30)
--- NOTE | 2021-01-11 11:37 | PN ---
DATE: 01/11/2021 SUBJECTIVE: The patient continued to be very lethargic, confused. Her intake is extremely poor and she in fact was choking on her food this morning. Her lab work this morning showed that her white cell count, hemoglobin, hematocrit and platelets are normal; however, her chemistry showed that she has hyponatremia and hypokalemia. Her sodium is down to 126, potassium 2.9 and chloride 88. I did discontinue her hydrochlorothiazide yesterday and we did start her on normal saline with 40 mEq of potassium chloride. PHYSICAL EXAMINATION: GENERAL: When I saw her this morning, she was pale, extremely cachectic, but not jaundiced, cyanosed. No lymphadenopathy, no thyromegaly, no jugular venous distention. No limb edema. VITAL SIGNS: Her heart rate was 94, blood pressure was 155/65, temperature was 97.3, respiratory rate was 17 and oxygen saturation was 95% on room air. HEAD, EYES, EARS, NOSE, AND THROAT: Normocephalic, atraumatic. NECK: Supple. HEART: Normal first and second heart sounds, no gallop, rub or murmur. CHEST: Clear to auscultation. No crepitation or rhonchi. ABDOMEN: Scaphoid, soft, nontender. NEUROLOGIC: She is lethargic, but arousable. All cranial nerves intact. She moves extremities without difficulty. There is no evidence of any lateralizing sign. Her intake over the last 24 hours and output were incompletely recorded. Her lab work this morning showed a serum sodium 126, potassium 2.9, chloride 88, bicarbonate 29, anion gap of 9, BUN 13, creatinine 0.7, estimated GFR was 79 mL per minute. Her glucose was 80. Calcium was 7.8. Her TSH was normal at 0.487. Her white cell count was 7300, hemoglobin 11.3, hematocrit 32, MCV 85 and platelet count of 239,000. Her prothrombin time was 22.1, INR of 2. Urinalysis is essentially unremarkable and was negative for nitrite and leukocyte esterase. There were occasional rbc's, no wbc's and no bacteria. Her CT scan of the head was also unremarkable with no evidence of acute intracranial process, white matter changes likely chronic small vessel disease, old infarct right occipital region with ex vacuo dilatation of the right lateral ventricle. ASSESSMENT: 1. This is an 85-year-old female patient who fell with resultant right sided rib fractures including right fifth toe through right 10th rib fracture, but there is no evidence of pneumothorax or hemothorax. 2. Altered mental status, probably multifactorial. She has not received any of her pain medication; however, his sodium and potassium are trending down. 3. The patient has multiple other medical problems including: A. Hypertension. B. Hyperlipidemia. C. Atrial fibrillation. D. Seizure disorder. E. Gastroesophageal reflux disease. F., History of cerebrovascular accident. G. 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 I. Age-related macular degeneration. J. Osteoporosis. K. Hypokalemia and hyponatremia. PLAN: Continue with IV normal saline and potassium chloride. We will switch her to Keppra and consult the neurologist to assist with her management. KENISHA DR: Jaqueline TID: [id number]
[2021-01-11 12:18] LABS: BASE EXCESS ABG 1 mmol/L (-3-3); HCO3 ABG 23 mmol/L (21-28); PCO2 ABG 33 mmHg (35-46); PO2 ABG 63 mmHg (65-108); SAT O2 ABG 93 % (92-99)
[2021-01-11 12:19] LABS: FIO2 ABG 21/RA
[2021-01-11] MEDS: hydrALAZINE 20 MG/ML VIAL. IVP PRN (12:40)
--- NOTE | 2021-01-11 13:16 | PDOC2 ---
NEUROLOGY CONSULT Date of Service DOS: DATE: 01/11/21 TIME: 13:08 Reason for Consult Reason for Consult: Altered mental status Referring Physician Referring Physician: Dr. Case Source Source: Caregiver (daughter), Chart review, Patient History of Present Illness History of Present Illness Patient is an 85-year-old right-handed female admitted 6 days ago after a fall on concrete. She fell backward and hit her head, there was no loss of consciousness, but she did have cracked ribs. She is on warfarin for atrial fibrillation. She has a history of stroke with left visual and motor deficits. She also has dementia and history of seizures. She sees Dr. Ramirez. I am asked to see her regarding altered mental status. Past Medical History Cardiovascular: HTN, Hyperlipidemia CENTRAL NERVOUS SYSTEM: CVA, Dementia, Seizure GI: GERD Psych: Depression ENT: Other (Macular degeneration) Endocrine: Osteoporosis, Other (SIADH) Past Surgical History Past Surgical History: Appendectomy, Tonsillectomy, Hysterectomy Family History Family History: No pertinent hx Social History Social History , lives with , family and hired caregivers do a lot of work for the patient, no alcohol or tobacco Current Medications Current Medications Current Medications Ondansetron HCl (Zofran) 4 mg PRN Q8HRS PRN IVP NAUSEA/VOMITING; Start 01/04/21 at 20:00; Stop 01/05/21 at 19:59; Status DC Fentanyl Citrate (Fentanyl 2ml Vial) 50 mcg PRN Q1HR PRN IVP PAIN Last administered on 01/04/21at 21:52; Start 01/04/21 at 20:00; Stop 01/05/21 at 19:59; Status DC Acetaminophen (Tylenol) 650 mg PRN Q4HRS PRN PO FEVER > 100.3'F; Start 01/04/21 at 20:00; Stop 01/05/21 at 19:59; Status DC Albuterol/ Ipratropium (Duoneb) 3 ml RTQID PRN NEB dyspnea/wheezing; Start 01/04/21 at 20:00; Stop 01/05/21 at 19:59; Status DC Amlodipine Besylate (Norvasc) 5 mg 1X ONCE PO Last administered on 01/04/21at 20:35; Start 01/04/21 at 20:00; Stop 01/04/21 at 20:19; Status DC Hydralazine HCl (Apresoline Inj) 10 mg 1X ONCE IVP Last administered on 01/04/21at 20:36; Start 01/04/21 at 20:15; Stop 01/04/21 at 20:19; Status DC Hydralazine HCl (Apresoline Inj) 20 mg TID PRN PRN IVP ELEVATED BP, SEE COMMENTS Last administered on 01/11/21at 12:40; Start 01/04/21 at 22:45 Amlodipine Besylate (Norvasc) 10 mg DAILY PO Last administered on 01/10/21at 11:23; Start 01/05/21 at 09:00 Folic Acid (Folic Acid) 1 mg DAILY PO Last administered on 01/10/21at 11:22; Start 01/05/21 at 09:00 Hydrochlorothiazide (Hydrodiuril) 25 mg DAILY PO Last administered on 01/09/21at 09:50; Start 01/05/21 at 09:00; Stop 01/10/21 at 10:40; Status DC Phenytoin Sodium (Dilantin) 300 mg TID PO Last administered on 01/10/21at 11:20; Start 01/05/21 at 00:00; Stop 01/11/21 at 10:58; Status DC Potassium Chloride (Klor-Con) 20 meq DAILY PO Last administered on 01/10/21at 11:22; Start 01/05/21 at 09:00 Atorvastatin Calcium (Lipitor) 20 mg QHS PO Last administered on 01/07/21at 20:17; Start 01/05/21 at 21:00 Non-Formulary Medication (Alendronate Sodium ) 70 mg WEEKLY PO ; Start 01/11/21 at 09:00; Status UNV Calcium/Vitamin D (Oscal D 500mg/ 200uts) 1 tab DAILY PO Last administered on 01/10/21at 11:21; Start 01/05/21 at 09:00 Carvedilol (Coreg) 25 mg BIDWMEALS PO Last administered on 01/10/21at 11:19; Start 01/05/21 at 08:00 Losartan Potassium (Cozaar) 100 mg DAILY PO Last administered on 01/10/21at 11:24; Start 01/05/21 at 09:00 Pantoprazole Sodium (Protonix) 40 mg DAILYAC PO Last administered on 10/17/21at 07:55; Start 01/05/21 at 07:30 Non-Formulary Medication (Ranitidine Hcl ) 300 mg HS PO ; Start 01/05/21 at 21:00; Status UNV Fentanyl Citrate (Fentanyl 2ml Vial) 50 mcg PRN Q3HRS PRN IVP PAIN Last administered on 01/09/21at 01:31; Start 01/06/21 at 02:30 Oxycodone HCl (Roxicodone) 5 mg Q4H PRN PO PAIN Last administered on 01/09/21at 14:46; Start 01/06/21 at 09:00 Lidocaine (Lidoderm) 2 patch DAILY TD Last administered on 01/10/21 11:27; Start 01/06/21 at 09:00 Miscellaneous (Lidoderm Patch Removal) 1 ea QHS MC Last administered on 01/10/21 22:20; Start 01/06/21 at 21:00 Demeclocycline HCl (Declomycin) 300 mg BID@0700,2100 PO Last administered on 01/10/21at 11:19; Start 01/06/21 at 11:00 Docusate Sodium (Colace) 100 mg BID PO Last administered on 01/10/21at 11:23; Start 01/07/21 at 11:00 Polyethylene Glycol (miraLAX PACKET) 17 gm DAILY PO Last administered on 01/10/21at 11:24; Start 01/07/21 at 11:00 Potassium Chloride/Sodium Chloride 1,000 ml @ 75 mls/hr [id number] IV Last administered on 01/09/21at 01:55; Start 01/07/21 at 09:45; Stop 01/09/21 at 08:56; Status DC Dronabinol (Marinol) 2.5 mg BIDACLD PO Last administered on 01/09/21at 17:35; Start 01/08/21 at 11:30 Warfarin Sodium (Coumadin) 4 mg DAILY16 PO ; Start 01/10/21 at 16:00 Warfarin Sodium (Coumadin Per Physician) 1 each PRN DAILY PRN MC SEE COMMENTS; Start 01/10/21 at 12:45 Potassium Chloride/Sodium Chloride 1,000 ml @ 100 mls/hr Q10H IV Last administered on 01/11/21at 09:42; Start 01/11/21 at 08:45 Active Scripts Active Reported Dilantin (Phenytoin Sodium Extended) 100 Mg Capsule 300 Mg PO QHS Nisoldipine 17 Mg Tab.er.24h 17 Mg PO DAILY Simvastatin 40 Mg Tablet 40 Mg PO HS Ranitidine Hcl 300 Mg Capsule 300 Mg PO HS Warfarin Sodium 4 Mg Tablet 4 Mg PO DAILY Alendronate Sodium 70 Mg Tablet 70 Mg PO WEEKLY Calcium + D Soft Chewable Tab (Ca Carbonate/Vitamin D3/Vit K) 1 Each Tab.chew 1 Each PO DAILY Protonix (Pantoprazole Sodium) 20 Mg Tablet.dr 20 Mg PO DAILY Folic Acid 1 Mg Tablet 1 Mg PO DAILY Klor-Con M20 (Potassium Chloride) 20 Meq Tab.er.prt 20 Meq PO DAILY Hydrochlorothiazide Tablet (Hydrochlorothiazide) 25 Mg Tablet 25 Mg PO DAILY Losartan Potassium 100 Mg Tablet 100 Mg PO DAILY Carvedilol 25 Mg Tablet 25 Mg PO BIDWMEALS Allergies Allergies: Coded Allergies: No Known Drug Allergies (Unverified , 07/09/18) ROS Review of System Negative for fever, chills, weight loss, shortness of breath, chest pain, indigestion, hematochezia, melena, and dysuria. Full 14-point review of systems is negative. Physical Exam Physical Examination General: Well-developed, well-nourished, white female, in no acute distress HEENT: Normocephalic andatraumatic.Temporal arteriespulsatile and nontender. Neck: Supple without bruit, no meningismus Musculoskeletal: Stability:see neurologic. Gait exam:see neurologic. Tone:see neurologic.Strength:see neurologic. Neurological: Mental Status:intact, orientation, memory, attention span/concentration, language, fund of knowledge normal. Cranial Nerves:Pupils equal and reactive to light, extraocular movements areintact. There is a left visual field cut. Facial sensation is normal. There is no facial asymmetry. Vestibulo-ocular reflex is intact. Palate elevates and tongue protrudes in midline. All other c ranial related problems are negative except as mentioned before.Reflexes:2+ and symmetric with flexor plantar responses. Motor:4/5 strength with normal tone and bulk. Bilateral grasp reflex. Coordination:Finger-nose finger and cchh-ht-iydq testing are normal. Rapid alternating movements and fine finger movements are intact. Gait:Not tested. Sensory:Normal pinprick, vibration, light touch, proprioception. Vitals VITALS Vital Signs Date Time Temp Pulse Resp B/P (MAP) Pulse Ox O2 Delivery O2 Flow Rate FiO2 01/11/21 12:40 70 193/67 01/11/21 11:00 98.4 17 95 Room Air 98.4 Labs Labs Laboratory Tests Test 01/10/21 03:00 01/10/21 11:55 01/10/21 16:45 01/11/21 05:55 White Blood Count 7.9 x10^3/uL (4.0-11.0) 7.3 x10^3/uL (4.0-11.0) Red Blood Count 3.82 x10^6/uL (3.50-5.40) 3.80 x10^6/uL (3.50-5.40) Hemoglobin 11.1 g/dL (12.0-15.5) 11.3 g/dL (12.0-15.5) Hematocrit 33.6 % (36.0-47.0) 32.4 % (36.0-47.0) Mean Corpuscular Volume 88 fL (79-100) 85 fL (79-100) Mean Corpuscular Hemoglobin 29 pg (25-35) 30 pg (25-35) Mean Corpuscular Hemoglobin Concent 33 g/dL (31-37) 35 g/dL (31-37) Red Cell Distribution Width 14.0 % (11.5-14.5) 13.7 % (11.5-14.5) Platelet Count 150 x10^3/uL (140-400) 239 x10^3/uL (140-400) Neutrophils (%) (Auto) 73 % (31-73) Lymphocytes (%) (Auto) 11 % (24-48) Monocytes (%) (Auto) 13 % (0-9) Eosinophils (%) (Auto) 2 % (0-3) Basophils (%) (Auto) 1 % (0-3) Neutrophils # (Auto) 5.8 x10^3/uL (1.8-7.7) Lymphocytes # (Auto) 0.9 x10^3/uL (1.0-4.8) Monocytes # (Auto) 1.0 x10^3/uL (0.0-1.1) Eosinophils # (Auto) 0.2 x10^3/uL (0.0-0.7) Basophils # (Auto) 0.1 x10^3/uL (0.0-0.2) Segmented Neutrophils % 57 % (35-66) Band Neutrophils % 11 % (0-9) Lymphocytes % 14 % (24-48) Monocytes % 15 % (0-10) Eosinophils % 3 % (0-5) Platelet Estimate Adequate (ADEQUATE) Platelet Clumps, EDTA Present Basophilic Stippling Present Sodium Level 127 mmol/L (136-145) 126 mmol/L (136-145) Potassium Level 3.4 mmol/L (3.5-5.1) 2.9 mmol/L (3.5-5.1) Chloride Level 91 mmol/L (98-107) 88 mmol/L (98-107) Carbon Dioxide Level 30 mmol/L (21-32) 29 mmol/L (21-32) Anion Gap 6 (6-14) 9 (6-14) Blood Urea Nitrogen 10 mg/dL (7-20) 13 mg/dL (7-20) Creatinine 0.6 mg/dL (0.6-1.0) 0.7 mg/dL (0.6-1.0) Estimated GFR (Cockcroft-Gault) 95.0 79.5 Glucose Level 115 mg/dL (70-99) 80 mg/dL (70-99) Calcium Level 7.6 mg/dL (8.5-10.1) 7.8 mg/dL (8.5-10.1) Prothrombin Time 21.1 SEC (11.7-14.0) 22.1 SEC (11.7-14.0) Prothromb Time International Ratio 1.9 (0.8-1.1) 2.0 (0.8-1.1) Urine Collection Type U cath Urine Color Yellow Urine Clarity Clear Urine pH 7.0 (<5.0-8.0) Urine Specific [place] 1.015 (1.000-1.030) Urine Protein Negative mg/dL (NEG-TRACE) Urine Glucose (UA) Negative mg/dL (NEG) Urine Ketones (Stick) 15 mg/dL (NEG) Urine Blood Negative (NEG) Urine Nitrite Negative (NEG) Urine Bilirubin Negative (NEG) Urine Urobilinogen Dipstick 1.0 mg/dL (0.2 mg/dL) Urine Leukocyte Esterase Negative (NEG) Urine RBC Occ /HPF (0-2) Urine WBC 0 /HPF (0-4) Urine Squamous Epithelial Cells Occ /LPF Urine Bacteria 0 /HPF (0-FEW) Thyroid Stimulating Hormone (TSH) 0.487 uIU/mL (0.358-3.74) Phenytoin (Dilantin) Level 48.0 mcg/mL (10.0-20.0) Phenytoin Last Dose Date 01/10/21 Phenytoin Last Dose Time 1120 Test 01/11/21 11:55 O2 Saturation 93 % (92-99) Arterial Blood pH 7.47 (7.35-7.45) Arterial Blood pCO2 at Patient Temp 33 mmHg (35-46) Arterial Blood pO2 at Patient Temp 63 mmHg (65-108) Arterial Blood HCO3 23 mmol/L (21-28) Arterial Blood Base Excess 1 mmol/L (-3-3) FiO2 21/ra Laboratory Tests Test 01/10/21 16:45 01/11/21 05:55 01/11/21 11:55 Urine Collection Type U cath Urine Color Yellow Urine Clarity Clear Urine pH 7.0 (<5.0-8.0) Urine Specific [place] 1.015 (1.000-1.030) Urine Protein Negative mg/dL (NEG-TRACE) Urine Glucose (UA) Negative mg/dL (NEG) Urine Ketones (Stick) 15 mg/dL (NEG) Urine Blood Negative (NEG) Urine Nitrite Negative (NEG) Urine Bilirubin Negative (NEG) Urine Urobilinogen Dipstick 1.0 mg/dL (0.2 mg/dL) Urine Leukocyte Esterase Negative (NEG) Urine RBC Occ /HPF (0-2) Urine WBC 0 /HPF (0-4) Urine Squamous Epithelial Cells Occ /LPF Urine Bacteria 0 /HPF (0-FEW) White Blood Count 7.3 x10^3/uL (4.0-11.0) Red Blood Count 3.80 x10^6/uL (3.50-5.40) Hemoglobin 11.3 g/dL (12.0-15.5) Hematocrit 32.4 % (36.0-47.0) Mean Corpuscular Volume 85 fL (79-100) Mean Corpuscular Hemoglobin 30 pg (25-35) Mean Corpuscular Hemoglobin Concent 35 g/dL (31-37) Red Cell Distribution Width 13.7 % (11.5-14.5) Platelet Count 239 x10^3/uL (140-400) Prothrombin Time 22.1 SEC (11.7-14.0) Prothromb Time International Ratio 2.0 (0.8-1.1) Sodium Level 126 mmol/L (136-145) Potassium Level 2.9 mmol/L (3.5-5.1) Chloride Level 88 mmol/L (98-107) Carbon Dioxide Level 29 mmol/L (21-32) Anion Gap 9 (6-14) Blood Urea Nitrogen 13 mg/dL (7-20) Creatinine 0.7 mg/dL (0.6-1.0) Estimated GFR (Cockcroft-Gault) 79.5 Glucose Level 80 mg/dL (70-99) Calcium Level 7.8 mg/dL (8.5-10.1) Thyroid Stimulating Hormone (TSH) 0.487 uIU/mL (0.358-3.74) Phenytoin (Dilantin) Level 48.0 mcg/mL (10.0-20.0) Phenytoin Last Dose Date 01/10/21 Phenytoin Last Dose Time 1120 O2 Saturation 93 % (92-99) Arterial Blood pH 7.47 (7.35-7.45) Arterial Blood pCO2 at Patient Temp 33 mmHg (35-46) Arterial Blood pO2 at Patient Temp 63 mmHg (65-108) Arterial Blood HCO3 23 mmol/L (21-28) Arterial Blood Base Excess 1 mmol/L (-3-3) FiO2 21/ra Images Images CT Head without IV contrast, 01/10/2021 9:49 PM CLINICAL HISTORY: Reason: fall, on blood thinners / Spl. Instructions: / History: COMPARISON: 01/04/2021. TECHNIQUE: Routine CT of the head without contrast. PQRS compliance statement - One or more of the following individualized dose reduction techniques were utilized for this study: 1. Automated exposure control 2. Adjustment of the mA and/or kV according to patient size 3. Use of iterative reconstruction technique FINDINGS: There is no evidence of hemorrhage, mass or extra-axial fluid collection. Sherman-white differentiation is maintained with no evidence of edema. Encephalomal acia right occipital region from prior infarct, stable to 01/04/2021. Ex vacuo dilatation right lateral ventricle. Subcortical, periventricular as well as deep white matter foci of hypoattenuation likely changes of chronic small vessel disease. There is no mass effect or shift of the intracranial structures. The ventricles, basilar cisterns and cortical sulci are normal in size and configuration for the patients stated age. The cerebellum and brainstem are unremarkable. The calvarium demonstrates no evidence of fracture or focal lesion. There is normal aeration of the visualized paranasal sinuses and mastoid air cells. The visualized portions of the orbits are normal. Scalp hematoma right posterior parietal region. Atherosclerotic calcifications of the intracranial internal carotid and vertebral arteries is seen. IMPRESSION: 1. No evidence for acute intracranial process. 2. White matter changes likely chronic small vessel disease. 3. Old infarct right occipital region with ex vacuo dilatation right lateral ventricle. Assessment/Plan Assessment/Plan Impression: Alzheimer's dementia Toxic encephalopathy, Dilantin toxicity, has been receiving phenytoin 300 mg 3 times daily since admission. 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 Thank you for letting me help with the patient's care. LEEROY MELENDEZ MD Jan 11, 2021 13:16
[2021-01-11 15:00] VITALS: BP 138/40
[2021-01-11] MEDS: WARFARIN 4 MG TABLET. PO SCH (16:00)
[2021-01-11 19:00] VITALS: BP 129/54
[2021-01-11] MEDS ORDERED: ACETAMINOPHEN 650 MG SUPP.RECT. PR PRN (20:00)
[2021-01-11] MEDS ORDERED: ACETAMINOPHEN 325 MG TABLET. PO PRN (20:00)
[2021-01-11] MEDS: PATCH REMOVAL. MC SCH (21:00)
[2021-01-11] MEDS ORDERED: VANCOMYCIN 1.25 GM in IV NORMAL SALINE 250ML 250 ML IV ONE (21:00)
[2021-01-11] MEDS: ATORVASTATIN CALCIUM 20 MG TABLET PO SCH (21:01)
--- NOTE | 2021-01-11 21:05 | NUR ---
Scheduled docusate non-administered d/t loose stool; patient remains drowsy but able to follow instructions and swallow medications crushed in applesauce. Patient in bed, bed in lowest/locked position, call light within reach and bed alarm active.
[2021-01-11 23:00] VITALS: BP 130/48
[2021-01-11] MEDS: PIPERACILLIN/TAZOBACTAM 3.375 GM in IV NORMAL SALINE 50ML 50 ML IV SCH (23:43)
[2021-01-12] MEDS: VANCOMYCIN PER PHARMACY MC PRN (02:57)
--- NOTE | 2021-01-12 02:59 | NUR ---
Pharmacy Vancomycin Dosing Note S:Consulted to monitor and dose vancomycin started 01/11/21. O:COLLEEN LANDIN is a 85 year old F with Empiric FEVER . Height: 5 feet, 2 inches Weight: 48.4 kg [place] Body Weight: 50.10 Adjusted Body Weight: 49.42 Dosing Weight: Actual Other Antibiotics: ZOSYN LABS: Last BUN: 13 Last Creatinine: 0.7 Creatinine Clearance: 31 mL/min Last WBC: 7.3 Last Procalcitonin: Tmax (past 24 hours): 101.5 Microbiology: 01/12 BCX PENDING I/O: Drug Levels: Last level: on at Last dose given 01/11/21 at 2100 Vancomycin Dosing: Loading Dose: 1250 mg x1 Dosing Weight: Actual Target Trough: 15-20 A: Based on: WEIGHT, CRCL~31, P: 1. INITIATE Vancomycin 750 mg IV q24h AFTER 1250 MG LOADING DOSE 2. Follow up Trough level on 01/13/21 at 2030 3. Pharmacy will continue to monitor, follow and adjust therapy as needed. PHIL OCONNELL [facility] [place], 01/12/21 [id number]
[2021-01-12 03:00] VITALS: BP 151/42
[2021-01-12 04:20] LABS: BASO % 0 % (0-3); EOS % 0 % (0-3); HEMATOCRIT 33.6 % (36.0-47.0); HEMOGLOBIN 11.5 g/dL (12.0-15.5); LYMPH # 0.5 x10^3/uL (1.0-4.8); LYMPH % 5 % (24-48); MEAN CORPUSCULAR HEMOGLOBIN 30 pg (25-35); MEAN CORPUSCULAR HGB CONC 34 g/dL (31-37); MEAN CORPUSCULAR VOLUME 87 fL (79-100); MONO # 1.2 x10^3/uL (0.0-1.1); MONO % 12 % (0-9); NEUT # 7.8 x10^3/uL (1.8-7.7); NEUT % 82 % (31-73); PLATELET COUNT 262 x10^3/uL (140-400); RED BLOOD COUNT 3.87 x10^6/uL (3.50-5.40); RED CELL DISTRIBUTION WIDTH 13.7 % (11.5-14.5); WHITE BLOOD COUNT 9.6 x10^3/uL (4.0-11.0)
[2021-01-12 04:42] LABS: ALBUMIN 2.3 g/dL (3.4-5.0); ALBUMIN/GLOBULIN RATIO 0.5 (1.0-1.7); CALCIUM 7.4 mg/dL (8.5-10.1); CREATININE 0.8 mg/dL (0.6-1.0); GFR 68.2; POTASSIUM 3.8 mmol/L (3.5-5.1); TOTAL BILIRUBIN 0.5 mg/dL (0.2-1.0); TOTAL PROTEIN 6.6 g/dL (6.4-8.2)
[2021-01-12 04:53] LABS: PHENY 43.4 mcg/mL (10.0-20.0)
[2021-01-12] MEDS: PIPERACILLIN/TAZOBACTAM 3.375 GM in IV NORMAL SALINE 50ML 50 ML IV SCH ×3 (05:11→18:39)
[2021-01-12] MEDS: POTASSIUM CL 40MEQ IN 0.9%NACL 1,000 ML IV SCH ×2 (05:11→18:37)
[2021-01-12 07:00] VITALS: BP 125/52
[2021-01-12] MEDS: DEMECLOCYCLINE HCL 150 MG TABLET. PO SCH ×2 (07:00→19:51)
[2021-01-12] MEDS: PANTOPRAZOLE 40 MG TABLET.DR. PO SCH (07:30)
[2021-01-12] MEDS: CARVEDILOL 12.5 MG TABLET. PO SCH ×2 (08:00→17:00)
--- NOTE | 2021-01-12 08:17 | RAD ---
XR CHEST 1V History: Rule out infection Comparison: 01/08/2021 Technique: Portable AP radiograph of the chest. Findings: Adequate inflation. Increasing left greater than right lower lobe opacities. No pleural effusion or p neumothorax. Stable cardiac silhouette. Pulmonary vasculature is within normal limits. Redemonstrated right posterior upper rib fractures. Advanced degenerative changes of the left shoulder. Soft tissue s are unremarkable. Impression: 1. Left greater than right lower lobe opacities new from comparison may represent atelectasis or inf ection. Electronically signed by: Gurpreet Kathleen MD (01/12/2021 8:14 AM) [id number]
--- NOTE | 2021-01-12 08:43 | PDOC ---
PROGRESS NOTES Date of Service DATE: 01/12/21 TIME: 08:41 Assessment Problems Medical Problems: (1) Closed traumatic nondisplaced fracture of multiple ribs of right side Status: Acute (2) Fall Status: Acute (3) Traumatic hematoma of scalp Status: Acute Alzheimer's dementia Toxic encephalopathy, Dilantin toxicity, has been receiving phenytoin 300 mg 3 times daily since admission. 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 EOMI. CN: no focal findings. Muscle tone: normal. Muscle strength: 4/5 DTR: 2+ Bilateral grasp reflexes Plantar reflex: Flexor Gait: not examined in bed. Sensory exam: no abnormal findings. Cerebellar: Not cooperative Review of Relevant I have reviewed the following items jimmy (where applicable) has been applied. Labs Laboratory Tests Test 01/10/21 11:55 01/10/21 16:45 01/11/21 05:55 01/11/21 11:55 Prothrombin Time 21.1 SEC (11.7-14.0) 22.1 SEC (11.7-14.0) Prothromb Time International Ratio 1.9 (0.8-1.1) 2.0 (0.8-1.1) Urine Collection Type U cath Urine Color Yellow Urine Clarity Clear Urine pH 7.0 (<5.0-8.0) Urine Specific Mcdermott 1.015 (1.000-1.030) Urine Protein Negative mg/dL (NEG-TRACE) Urine Glucose (UA) Negative mg/dL (NEG) Urine Ketones (Stick) 15 mg/dL (NEG) Urine Blood Negative (NEG) Urine Nitrite Negative (NEG) Urine Bilirubin Negative (NEG) Urine Urobilinogen Dipstick 1.0 mg/dL (0.2 mg/dL) Urine Leukocyte Esterase Negative (NEG) Urine RBC Occ /HPF (0-2) Urine WBC 0 /HPF (0-4) Urine Squamous Epithelial Cells Occ /LPF Urine Bacteria 0 /HPF (0-FEW) White Blood Count 7.3 x10^3/uL (4.0-11.0) Red Blood Count 3.80 x10^6/uL (3.50-5.40) Hemoglobin 11.3 g/dL (12.0-15.5) Hematocrit 32.4 % (36.0-47.0) Mean Corpuscular Volume 85 fL (79-100) Mean Corpuscular Hemoglobin 30 pg (25-35) Mean Corpuscular Hemoglobin Concent 35 g/dL (31-37) Red Cell Distribution Width 13.7 % (11.5-14.5) Platelet Count 239 x10^3/uL (140-400) Sodium Level 126 mmol/L (136-145) Potassium Level 2.9 mmol/L (3.5-5.1) Chloride Level 88 mmol/L (98-107) Carbon Dioxide Level 29 mmol/L (21-32) Anion Gap 9 (6-14) Blood Urea Nitrogen 13 mg/dL (7-20) Creatinine 0.7 mg/dL (0.6-1.0) Estimated GFR (Cockcroft-Gault) 79.5 Glucose Level 80 mg/dL (70-99) Calcium Level 7.8 mg/dL (8.5-10.1) Thyroid Stimulating Hormone (TSH) 0.487 uIU/mL (0.358-3.74) Phenytoin (Dilantin) Level 48.0 mcg/mL (10.0-20.0) Phenytoin Last Dose Date 01/10/21 Phenytoin Last Dose Time 1120 O2 Saturation 93 % (92-99) Arterial Blood pH 7.47 (7.35-7.45) Arterial Blood pCO2 at Patient Temp 33 mmHg (35-46) Arterial Blood pO2 at Patient Temp 63 mmHg (65-108) Arterial Blood HCO3 23 mmol/L (21-28) Arterial Blood Base Excess 1 mmol/L (-3-3) FiO2 21/ra Test 01/11/21 20:15 01/12/21 03:40 Lactic Acid Level 0.6 mmol/L (0.4-2.0) White Blood Count 9.6 x10^3/uL (4.0-11.0) Red Blood Count 3.87 x10^6/uL (3.50-5.40) Hemoglobin 11.5 g/dL (12.0-15.5) Hematocrit 33.6 % (36.0-47.0) Mean Corpuscular Volume 87 fL (79-100) Mean Corpuscular Hemoglobin 30 pg (25-35) Mean Corpuscular Hemoglobin Concent 34 g/dL (31-37) Red Cell Distribution Width 13.7 % (11.5-14.5) Platelet Count 262 x10^3/uL (140-400) Neutrophils (%) (Auto) 82 % (31-73) Lymphocytes (%) (Auto) 5 % (24-48) Monocytes (%) (Auto) 12 % (0-9) Eosinophils (%) (Auto) 0 % (0-3) Basophils (%) (Auto) 0 % (0-3) Neutrophils # (Auto) 7.8 x10^3/uL (1.8-7.7) Lymphocytes # (Auto) 0.5 x10^3/uL (1.0-4.8) Monocytes # (Auto) 1.2 x10^3/uL (0.0-1.1) Eosinophils # (Auto) 0.0 x10^3/uL (0.0-0.7) Basophils # (Auto) 0.0 x10^3/uL (0.0-0.2) Sodium Level 131 mmol/L (136-145) Potassium Level 3.8 mmol/L (3.5-5.1) Chloride Level 95 mmol/L (98-107) Carbon Dioxide Level 26 mmol/L (21-32) Anion Gap 10 (6-14) Blood Urea Nitrogen 14 mg/dL (7-20) Creatinine 0.8 mg/dL (0.6-1.0) Estimated GFR (Cockcroft-Gault) 68.2 BUN/Creatinine Ratio 18 (6-20) Glucose Level 111 mg/dL (70-99) Calcium Level 7.4 mg/dL (8.5-10.1) Total Bilirubin 0.5 mg/dL (0.2-1.0) Aspartate Amino Transf (AST/SGOT) 24 U/L (15-37) Alanine Aminotransferase (ALT/SGPT) 23 U/L (14-59) Alkaline Phosphatase 115 U/L (46-116) Ammonia 11 mcmol/L (11-34) Total Protein 6.6 g/dL (6.4-8.2) Albumin 2.3 g/dL (3.4-5.0) Albumin/Globulin Ratio 0.5 (1.0-1.7) Phenytoin (Dilantin) Level 43.4 mcg/mL (10.0-20.0) Phenytoin Last Dose Date [id number] Phenytoin Last Dose Time 1120 Laboratory Tests Test 01/11/21 11:55 01/11/21 20:15 01/12/21 03:40 O2 Saturation 93 % (92-99) Arterial Blood pH 7.47 (7.35-7.45) Arterial Blood pCO2 at Patient Temp 33 mmHg (35-46) Arterial Blood pO2 at Patient Temp 63 mmHg (65-108) Arterial Blood HCO3 23 mmol/L (21-28) Arterial Blood Base Excess 1 mmol/L (-3-3) FiO2 21/ra Lactic Acid Level 0.6 mmol/L (0.4-2.0) White Blood Count 9.6 x10^3/uL (4.0-11.0) Red Blood Count 3.87 x10^6/uL (3.50-5.40) Hemoglobin 11.5 g/dL (12.0-15.5) Hematocrit 33.6 % (36.0-47.0) Mean Corpuscular Volume 87 fL (79-100) Mean Corpuscular Hemoglobin 30 pg (25-35) Mean Corpuscular Hemoglobin Concent 34 g/dL (31-37) Red Cell Distribution Width 13.7 % (11.5-14.5) Platelet Count 262 x10^3/uL (140-400) Neutrophils (%) (Auto) 82 % (31-73) Lymphocytes (%) (Auto) 5 % (24-48) Monocytes (%) (Auto) 12 % (0-9) Eosinophils (%) (Auto) 0 % (0-3) Basophils (%) (Auto) 0 % (0-3) Neutrophils # (Auto) 7.8 x10^3/uL (1.8-7.7) Lymphocytes # (Auto) 0.5 x10^3/uL (1.0-4.8) Monocytes # (Auto) 1.2 x10^3/uL (0.0-1.1) Eosinophils # (Auto) 0.0 x10^3/uL (0.0-0.7) Basophils # (Auto) 0.0 x10^3/uL (0.0-0.2) Sodium Level 131 mmol/L (136-145) Potassium Level 3.8 mmol/L (3.5-5.1) Chloride Level 95 mmol/L (98-107) Carbon Dioxide Level 26 mmol/L (21-32) Anion Gap 10 (6-14) Blood Urea Nitrogen 14 mg/dL (7-20) Creatinine 0.8 mg/dL (0.6-1.0) Estimated GFR (Cockcroft-Gault) 68.2 BUN/Creatinine Ratio 18 (6-20) Glucose Level 111 mg/dL (70-99) Calcium Level 7.4 mg/dL (8.5-10.1) Total Bilirubin 0.5 mg/dL (0.2-1.0) Aspartate Amino Transf (AST/SGOT) 24 U/L (15-37) Alanine Aminotransferase (ALT/SGPT) 23 U/L (14-59) Alkaline Phosphatase 115 U/L (46-116) Ammonia 11 mcmol/L (11-34) Total Protein 6.6 g/dL (6.4-8.2) Albumin 2.3 g/dL (3.4-5.0) Albumin/Globulin Ratio 0.5 (1.0-1.7) Phenytoin (Dilantin) Level 43.4 mcg/mL (10.0-20.0) Phenytoin Last Dose Date [id number] Phenytoin Last Dose Time 1120 Medications Current Medications Ondansetron HCl (Zofran) 4 mg PRN Q8HRS PRN IVP NAUSEA/VOMITING; Start 01/04/21 at 20:00; Stop 01/05/21 at 19:59; Status DC Fentanyl Citrate (Fentanyl 2ml Vial) 50 mcg PRN Q1HR PRN IVP PAIN Last administered on 01/04/21at 21:52; Start 01/04/21 at 20:00; Stop 01/05/21 at 19:59; Status DC Acetaminophen (Tylenol) 650 mg PRN Q4HRS PRN PO FEVER > 100.3'F; Start 01/04/21 at 20:00; Stop 01/05/21 at 19:59; Status DC Albuterol/ Ipratropium (Duoneb) 3 ml RTQID PRN NEB dyspnea/wheezing; Start 01/04/21 at 20:00; Stop 01/05/21 at 19:59; Status DC Amlodipine Besylate (Norvasc) 5 mg 1X ONCE PO Last administered on 01/04/21at 20:35; Start 01/04/21 at 20:00; Stop 01/04/21 at 20:19; Status DC Hydralazine HCl (Apresoline Inj) 10 mg 1X ONCE IVP Last administered on 01/04/21at 20:36; Start 01/04/21 at 20:15; Stop 01/04/21 at 20:19; Status DC Hydralazine HCl (Apresoline Inj) 20 mg TID PRN PRN IVP ELEVATED BP, SEE COMMENTS Last administered on 01/11/21at 12:40; Start 01/04/21 at 22:45 Amlodipine Besylate (Norvasc) 10 mg DAILY PO Last administered on 01/10/21at 11:23; Start 01/05/21 at 09:00 Folic Acid (Folic Acid) 1 mg DAILY PO Last administered on 01/10/21at 11:22; Start 01/05/21 at 09:00 Hydrochlorothiazide (Hydrodiuril) 25 mg DAILY PO Last administered on 01/09/21at 09:50; Start 01/05/21 at 09:00; Stop 01/10/21 at 10:40; Status DC Phenytoin Sodium (Dilantin) 300 mg TID PO Last administered on 01/10/21at 11:20; Start 01/05/21 at 00:00; Stop 01/11/21 at 10:58; Status DC Potassium Chloride (Klor-Con) 20 meq DAILY PO Last administered on 01/10/21at 11:22; Start 01/05/21 at 09:00 Atorvastatin Calcium (Lipitor) 20 mg QHS PO Last administered on 01/11/21at 21:01; Start 01/05/21 at 21:00 Non-Formulary Medication (Alendronate Sodium ) 70 mg WEEKLY PO ; Start 01/11/21 at 09:00; Status UNV Calcium/Vitamin D (Oscal D 500mg/ 200uts) 1 tab DAILY PO Last administered on 01/10/21 11:21; Start 01/05/21 at 09:00 Carvedilol (Coreg) 25 mg BIDWMEALS PO Last administered on 01/10/21 11:19; Start 01/05/21 at 08:00 Losartan Potassium (Cozaar) 100 mg DAILY PO Last administered on 01/10/21 11:24; Start 01/05/21 at 09:00 Pantoprazole Sodium (Protonix) 40 mg DAILYAC PO Last administered on 01/09/21at 07:55; Start 01/05/21 at 07:30 Non-Formulary Medication (Ranitidine Hcl ) 300 mg HS PO ; Start 01/05/21 at 21:00; Status UNV Fentanyl Citrate (Fentanyl 2ml Vial) 50 mcg PRN Q3HRS PRN IVP PAIN Last administered on 01/09/21at 01:31; Start 01/06/21 at 02:30 Oxycodone HCl (Roxicodone) 5 mg Q4H PRN PO PAIN Last administered on 01/09/21 14:46; Start 01/06/21 at 09:00 Lidocaine (Lidoderm) 2 patch DAILY TD Last administered on 01/10/21 11:27; Start 01/06/21 at 09:00 Miscellaneous (Lidoderm Patch Removal) 1 ea QHS MC Last administered on 01/11/21at 21:00; Start 01/06/21 at 21:00 Demeclocycline HCl (Declomycin) 300 mg BID@0700,2100 PO Last administered on 01/11/21 21:01; Start 01/06/21 at 11:00 Docusate Sodium (Colace) 100 mg BID PO Last administered on 01/10/21 11:23; Start 01/07/21 at 11:00 Polyethylene Glycol (miraLAX PACKET) 17 gm DAILY PO Last administered on 01/10/21 11:24; Start 01/07/21 at 11:00 Potassium Chloride/Sodium Chloride 1,000 ml @ 75 mls/hr [id number] IV Last administered on 10/17/21at 01:55; Start 01/07/21 at 09:45; Stop 01/09/21 at 08:56; Status DC Dronabinol (Marinol) 2.5 mg BIDACLD PO Last administered on 01/09/21at 17:35; Start 01/08/21 at 11:30 Warfarin Sodium (Coumadin) 4 mg DAILY16 PO ; Start 01/10/21 at 16:00 Warfarin Sodium (Coumadin Per Physician) 1 each PRN DAILY PRN MC SEE COMMENTS; Start 01/10/21 at 12:45 Potassium Chloride/Sodium Chloride 1,000 ml @ 100 mls/hr Q10H IV Last administered on 01/12/21at 05:11; Start 01/11/21 at 08:45 Vancomycin HCl (Vanco Per Pharmacy) 1 each PRN DAILY PRN MC SEE COMMENTS Last administered on 01/12/21at 02:57; Start 01/11/21 at 20:00 Piperacillin Sod/ Tazobactam Sod 3.375 gm/Sodium Chloride 50 ml @ 100 mls/hr Q6HRS IV Last administered on 01/12/21at 05:11; Start 01/12/21 at 00:00 Acetaminophen (Tylenol Supp) 650 mg PRN Q6HRS PRN HI MILD PAIN / TEMP > 100.3'F Last administered on 01/11/21at 20:53; Start 01/11/21 at 20:00 Acetaminophen (Tylenol) 650 mg PRN Q6HRS PRN PO MILD PAIN / TEMP > 100.3'F; Start 01/11/21 at 20:00 Vancomycin HCl 1.25 gm/Sodium Chloride 250 ml @ 166.667 mls/hr 1X ONCE IV Last administered on 01/11/21at 21:00; Start 01/11/21 at 21:00; Stop 01/11/21 at 22:29; Status DC Vancomycin HCl 750 mg/Sodium Chloride 250 ml @ 250 mls/hr Q24H IV ; Start 01/12/21 at 21:00 Vancomycin HCl (Vancomycin Trough Level) 1 each 1X ONCE MC ; Start 01/13/21 at 20:30; Stop 01/13/21 at 20:31 Active Scripts Active Reported Dilantin (Phenytoin Sodium Extended) 100 Mg Capsule 300 Mg PO QHS Nisoldipine 17 Mg Tab.er.24h 17 Mg PO DAILY Simvastatin 40 Mg Tablet 40 Mg PO HS Ranitidine Hcl 300 Mg Capsule 300 Mg PO HS Warfarin Sodium 4 Mg Tablet 4 Mg PO DAILY Alendronate Sodium 70 Mg Tablet 70 Mg PO WEEKLY Calcium + D Soft Chewable Tab (Ca Carbonate/Vitamin D3/Vit K) 1 Each Tab.chew 1 Each PO DAILY Protonix (Pantoprazole Sodium) 20 Mg Tablet.dr 20 Mg PO DAILY Folic Acid 1 Mg Tablet 1 Mg PO DAILY Klor-Con M20 (Potassium Chloride) 20 Meq Tab.er.prt 20 Meq PO DAILY Hydrochlorothiazide Tablet (Hydrochlorothiazide) 25 Mg Tablet 25 Mg PO DAILY Losartan Potassium 100 Mg Tablet 100 Mg PO DAILY Carvedilol 25 Mg Tablet 25 Mg PO BIDWMEALS Vitals/I & O Vital Sign - Last 24 Hours 01/11/21 01/11/21 01/11/21 01/11/21 11:00 12:40 15:00 19:00 Temp 98.4 99.1 101.5 98.4 99.1 101.5 Pulse 70 70 80 84 Resp 17 17 18 B/P (MAP) 193/67 (109) 193/67 138/40 (72) 129/54 (79) Pulse Ox 95 92 96 O2 Delivery Room Air Room Air Room Air 01/11/21 01/11/21 01/11/21 01/12/21 20:00 22:03 23:00 03:00 Temp 98.8 98.4 98.8 98.4 Pulse 81 80 Resp 20 20 B/P (MAP) 130/48 (75) 151/42 (78) Pulse Ox 99 93 O2 Delivery Room Air Room Air Room Air 01/12/21 07:00 Temp 98.3 98.3 Pulse 76 Resp 16 B/P (MAP) 125/52 (76) Pulse Ox 94 O2 Delivery Room Air Intake and Output 01/11/21 01/11/21 01/12/21 15:00 23:00 07:00 Intake Total 0 ml 1000 ml 400 ml Balance 0 ml 1000 ml 400 ml Justicifation of Admission Dx: Justifications for Admission: Justification of Admission Dx: Yes LEEROY MELENDEZ MD Jan 12, 2021 08:43
[2021-01-12] MEDS: FOLIC ACID 1 MG TABLET. PO SCH (09:00)
[2021-01-12] MEDS: DOCUSATE SODIUM 100 MG CAPSULE. PO SCH ×2 (09:00→19:51)
[2021-01-12] MEDS: POTASSIUM CHLORIDE 20 MEQ TABLET.ER. PO SCH (09:00)
[2021-01-12] MEDS: CALCIUM CARB/VIT D3 500/200 TABLET. PO SCH (09:00)
[2021-01-12] MEDS: POLYETHYLENE GLYCOL 3350 17 GM PACKET. PO SCH (09:00)
[2021-01-12] MEDS: LOSARTAN POTASSIUM 50 MG TABLET. PO SCH (09:00)
[2021-01-12] MEDS: LIDOCAINE (700MG/PATCH) PATCH. TD SCH (09:00)
[2021-01-12 11:00] VITALS: BP 158/60
[2021-01-12] MEDS: DRONABINOL 2.5 MG CAPSULE. PO SCH ×2 (11:30→16:30)
--- NOTE | 2021-01-12 12:13 | PN ---
DATE: 01/12/2021 SUBJECTIVE: The patient is resting, slightly propped up in bed, in no apparent respiratory distress. She is definitely more awake, alert, responding appropriately and holding conversation with her family. On questioning her, denied any complaint. The nursing staff stated that she did spike a temperature yesterday up to 101.5 and did panculture her and started her empirically on IV antibiotic in the form of vancomycin and Zosyn. Her phenytoin level yesterday was 48 and she apparently was getting 300 mg of phenytoin 3 times a day. This morning her phenytoin level is 43.4. PHYSICAL EXAMINATION: GENERAL: When I examined her, she was pale, cachectic, but no jaundice, cyanosis, no lymphadenopathy, no thyromegaly, no jugular venous distention. No limb edema. VITAL SIGNS: Her heart rate was 76, blood pressure is 125/52, temperature was 98.3, respiratory rate was 16 and oxygen saturation was 94%. HEAD, EYES, EARS, NOSE AND THROAT: Normocephalic, atraumatic. NECK: Supple. HEART: Showed normal first and second heart sounds, no gallop, rub or murmur. CHEST: Clear to auscultation, no crepitation or rhonchi. ABDOMEN: Scaphoid, soft, nontender. NEUROLOGIC: She is definitely more awake, alert. All her cranial nerves are intact. She moves extremities without difficulty. Her intake over the last 24 hours was incompletely recorded. LABORATORY DATA: As of this morning, her white cell count was 9600, hemoglobin 11, hematocrit 33, MCV 87 and platelet count 262,000. Her chemistry showed a serum sodium 131, potassium 3.8, chloride 95, bicarbonate 26, anion gap of 10, BUN 14, creatinine 0.8. Estimated GFR was 68 mL per minute. Her glucose is 111. Lactic acid was 0.6, calcium was 7.4. Total bilirubin, AST, ALT, alkaline phosphatase were normal. Her ammonia was 11. Total protein 6.6, albumin was 2.3. ASSESSMENT: 1. Altered mental status. 2. Toxic encephalopathy due to Dilantin toxicity. 3. Closed traumatic nondisplaced fracture of multiple ribs on the right side. 4. Hypokalemia, resolved. His serum potassium is 3.8. 5. Hyponatremia, improving. His serum sodium has risen from 126 to 131. 6. Apparently has a history of seizures and right occipital stroke with left homonymous hemianopia. PLAN: Obviously continue to hold Dilantin. Continue with IV fluid. We will monitor her Dilantin a daily basis and once it is within therapeutic range, she can be restarted on her usual dose. Meanwhile, we will start physical and occupational therapy as soon as the patient is able to participate. KENISHA DR: Jaqueline TID: [id number]
[2021-01-12 15:00] VITALS: BP 149/52
[2021-01-12] MEDS: WARFARIN 4 MG TABLET. PO SCH (16:00)
[2021-01-12 19:00] VITALS: BP 143/52
[2021-01-12] MEDS: ATORVASTATIN CALCIUM 20 MG TABLET PO SCH (19:52)
[2021-01-12] MEDS: PATCH REMOVAL. MC SCH (20:14)
[2021-01-12] MEDS ORDERED: VANCOMYCIN 750 MG in IV NORMAL SALINE 250ML 250 ML IV SCH (21:00)
[2021-01-12 23:00] VITALS: BP 97/54
[2021-01-13] MEDS: PIPERACILLIN/TAZOBACTAM 3.375 GM in IV NORMAL SALINE 50ML 50 ML IV SCH ×5 (00:45→23:14)
[2021-01-13 03:00] VITALS: BP 154/53
[2021-01-13] MEDS: POTASSIUM CL 40MEQ IN 0.9%NACL 1,000 ML IV SCH (05:31)
[2021-01-13 07:00] VITALS: BP 201/74
[2021-01-13] MEDS: CALCIUM CARB/VIT D3 500/200 TABLET. PO SCH (07:46)
[2021-01-13] MEDS: PANTOPRAZOLE 40 MG TABLET.DR. PO SCH (07:46)
[2021-01-13] MEDS: FOLIC ACID 1 MG TABLET. PO SCH (07:46)
[2021-01-13] MEDS: LOSARTAN POTASSIUM 50 MG TABLET. PO SCH (07:46)
[2021-01-13] MEDS: DEMECLOCYCLINE HCL 150 MG TABLET. PO SCH ×2 (07:46→19:50)
[2021-01-13] MEDS: POTASSIUM CHLORIDE 20 MEQ TABLET.ER. PO SCH (07:47)
[2021-01-13] MEDS: DOCUSATE SODIUM 100 MG CAPSULE. PO SCH ×2 (07:47→19:49)
[2021-01-13] MEDS: POLYETHYLENE GLYCOL 3350 17 GM PACKET. PO SCH (07:47)
[2021-01-13] MEDS: CARVEDILOL 12.5 MG TABLET. PO SCH ×2 (07:47→17:30)
[2021-01-13] MEDS: LIDOCAINE (700MG/PATCH) PATCH. TD SCH ×2 (07:48→09:00)
[2021-01-13 09:05] LABS: PROTHROMBIN TIME PATIENT 19.6 SEC (11.7-14.0)
[2021-01-13 09:43] LABS: CREATININE 0.6 mg/dL (0.6-1.0); PHENY 39.7 mcg/mL (10.0-20.0)
[2021-01-13 10:54] VITALS: BP 134/56
--- NOTE | 2021-01-13 10:54 | PN ---
DATE: 01/13/2021 SUBJECTIVE: The patient is resting, slightly propped up in bed, no apparent distress. She is more awake, alert, responding appropriately, continued to have poor appetite and poor oral intake. She continued to be on IV fluid, IV antibiotic. PHYSICAL EXAMINATION: GENERAL: When I examined her, she was pale, cachectic, but not jaundiced or cyanosed. No lymphadenopathy, no thyromegaly, no jugular venous distention. No lower limb edema. VITAL SIGNS: Her heart rate was 68, blood pressure was 182/66, temperature 97.5, respiratory rate was 20 and oxygen saturation was 95%. HEAD, EYES, EARS, NOSE, AND THROAT: Normocephalic, atraumatic. NECK: Supple. HEART: Showed normal first and second heart sounds. No gallop, rub or murmur. CHEST: Clear to auscultation. No crepitation or rhonchi. ABDOMEN: Distended, soft, nontender. NEUROLOGIC: She is awake, alert, responding appropriately. Cranial nerves are intact. She moves extremities without difficulty. Her intake over the last 24 hours was 1400, no output was recorded. LABORATORY DATA: As of this morning showed a creatinine of 0.6 and estimated GFR was 95 mL per minute. Her prothrombin time was 19.6, INR 1.7. Her Dilantin level is down to 39.7. Her blood cultures showed no growth after 1 day. ASSESSMENT: 1. Altered mental status. 2. Toxic encephalopathy due to Dilantin toxicity. 3. Closed traumatic nondisplaced fracture of multiple ribs on the right side. 4. Hypokalemia, resolved. 5. Hyponatremia, improving. 6. Seizure disorder. 7. Right occipital stroke with left homonymous hemianopia. 8. Sepsis with no obvious site. The patient was pancultured and she is now on Zosyn and vancomycin. PLAN: Repeat her labs again tomorrow. Continue with IV antibiotic. Continue with holding the Dilantin. Continue with physical and occupational therapy. SUMANTH/JAMIE DR: Jaqueline TID: [id number]
[2021-01-13] MEDS: DRONABINOL 2.5 MG CAPSULE. PO SCH ×2 (12:03→17:29)
--- NOTE | 2021-01-13 14:12 | PDOC ---
PROGRESS NOTES Date of Service DATE: 01/13/21 TIME: 14:10 Assessment Problems Medical Problems: (1) Closed traumatic nondisplaced fracture of multiple ribs of right side Status: Acute (2) Fall Status: Acute (3) Traumatic hematoma of scalp Status: Acute Alzheimer's dementia Toxic encephalopathy, Dilantin toxicity, had been receiving phenytoin 300 mg 3 times daily since admission. 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 EOMI. CN: no focal findings. Muscle tone: normal. Muscle strength: 4/5 DTR: 2+ Bilateral grasp reflexes Plantar reflex: Flexor Gait: not examined in bed. Sensory exam: no abnormal findings. Cerebellar: Not cooperative Review of Relevant I have reviewed the following items jimmy (where applicable) has been applied. Labs Laboratory Tests Test 01/11/21 20:15 01/12/21 03:40 01/13/21 08:15 Lactic Acid Level 0.6 mmol/L (0.4-2.0) White Blood Count 9.6 x10^3/uL (4.0-11.0) Red Blood Count 3.87 x10^6/uL (3.50-5.40) Hemoglobin 11.5 g/dL (12.0-15.5) Hematocrit 33.6 % (36.0-47.0) Mean Corpuscular Volume 87 fL (79-100) Mean Corpuscular Hemoglobin 30 pg (25-35) Mean Corpuscular Hemoglobin Concent 34 g/dL (31-37) Red Cell Distribution Width 13.7 % (11.5-14.5) Platelet Count 262 x10^3/uL (140-400) Neutrophils (%) (Auto) 82 % (31-73) Lymphocytes (%) (Auto) 5 % (24-48) Monocytes (%) (Auto) 12 % (0-9) Eosinophils (%) (Auto) 0 % (0-3) Basophils (%) (Auto) 0 % (0-3) Neutrophils # (Auto) 7.8 x10^3/uL (1.8-7.7) Lymphocytes # (Auto) 0.5 x10^3/uL (1.0-4.8) Monocytes # (Auto) 1.2 x10^3/uL (0.0-1.1) Eosinophils # (Auto) 0.0 x10^3/uL (0.0-0.7) Basophils # (Auto) 0.0 x10^3/uL (0.0-0.2) Sodium Level 131 mmol/L (136-145) Potassium Level 3.8 mmol/L (3.5-5.1) 4.4 mmol/L (3.5-5.1) Chloride Level 95 mmol/L (98-107) Carbon Dioxide Level 26 mmol/L (21-32) Anion Gap 10 (6-14) Blood Urea Nitrogen 14 mg/dL (7-20) Creatinine 0.8 mg/dL (0.6-1.0) 0.6 mg/dL (0.6-1.0) Estimated GFR (Cockcroft-Gault) 68.2 95.0 BUN/Creatinine Ratio 18 (6-20) Glucose Level 111 mg/dL (70-99) Calcium Level 7.4 mg/dL (8.5-10.1) Total Bilirubin 0.5 mg/dL (0.2-1.0) Aspartate Amino Transf (AST/SGOT) 24 U/L (15-37) Alanine Aminotransferase (ALT/SGPT) 23 U/L (14-59) Alkaline Phosphatase 115 U/L (46-116) Ammonia 11 mcmol/L (11-34) Total Protein 6.6 g/dL (6.4-8.2) Albumin 2.3 g/dL (3.4-5.0) Albumin/Globulin Ratio 0.5 (1.0-1.7) Phenytoin (Dilantin) Level 43.4 mcg/mL (10.0-20.0) 39.7 mcg/mL (10.0-20.0) Phenytoin Last Dose Date [id number] 01/10/21 Phenytoin Last Dose Time 1120 2100 Prothrombin Time 19.6 SEC (11.7-14.0) Prothromb Time International Ratio 1.7 (0.8-1.1) Laboratory Tests Test 01/13/21 08:15 Prothrombin Time 19.6 SEC (11.7-14.0) Prothromb Time International Ratio 1.7 (0.8-1.1) Potassium Level 4.4 mmol/L (3.5-5.1) Creatinine 0.6 mg/dL (0.6-1.0) Estimated GFR (Cockcroft-Gault) 95.0 Phenytoin (Dilantin) Level 39.7 mcg/mL (10.0-20.0) Phenytoin Last Dose Date 01/10/21 Phenytoin Last Dose Time 2100 Microbiology 01/11/21 Blood Culture - Preliminary, Resulted NO GROWTH AFTER 1 DAY Medications Current Medications Ondansetron HCl (Zofran) 4 mg PRN Q8HRS PRN IVP NAUSEA/VOMITING; Start 01/04/21 at 20:00; Stop 01/05/21 at 19:59; Status DC Fentanyl Citrate (Fentanyl 2ml Vial) 50 mcg PRN Q1HR PRN IVP PAIN Last administered on 01/04/21at 21:52; Start 01/04/21 at 20:00; Stop 01/05/21 at 19:59; Status DC Acetaminophen (Tylenol) 650 mg PRN Q4HRS PRN PO FEVER > 100.3'F; Start 01/04/21 at 20:00; Stop 01/05/21 at 19:59; Status DC Albuterol/ Ipratropium (Duoneb) 3 ml RTQID PRN NEB dyspnea/wheezing; Start 01/04/21 at 20:00; Stop 01/05/21 at 19:59; Status DC Amlodipine Besylate (Norvasc) 5 mg 1X ONCE PO Last administered on 01/04/21at 20:35; Start 01/04/21 at 20:00; Stop 01/04/21 at 20:19; Status DC Hydralazine HCl (Apresoline Inj) 10 mg 1X ONCE IVP Last administered on 01/04at 20:36; Start 01/04/21 at 20:15; Stop 01/04/21 at 20:19; Status DC Hydralazine HCl (Apresoline Inj) 20 mg TID PRN PRN IVP ELEVATED BP, SEE COMMENTS Last administered on 01/11/21at 12:40; Start 01/04/21 at 22:45 Amlodipine Besylate (Norvasc) 10 mg DAILY PO Last administered on 01/13/21at 07:48; Start 01/05/21 at 09:00 Folic Acid (Folic Acid) 1 mg DAILY PO Last administered on 01/13/21at 07:46; Start 01/05/21 at 09:00 Hydrochlorothiazide (Hydrodiuril) 25 mg DAILY PO Last administered on 1at 09:50; Start 01/05/21 at 09:00; Stop 01/10/21 at 10:40; Status DC Phenytoin Sodium (Dilantin) 300 mg TID PO Last administered on 01/10/21at 11:20; Start 01/05/21 at 00:00; Stop 01/11/21 at 10:58; Status DC Potassium Chloride (Klor-Con) 20 meq DAILY PO Last administered on 01/10/21at 11:22; Start 01/05/21 at 09:00 Atorvastatin Calcium (Lipitor) 20 mg QHS PO Last administered on 01/11/21at 21:01; Start 01/05/21 at 21:00 Non-Formulary Medication (Alendronate Sodium ) 70 mg WEEKLY PO ; Start 01/11/21 at 09:00; Status UNV Calcium/Vitamin D (Oscal D 500mg/ 200uts) 1 tab DAILY PO Last administered on 01/13/21at 07:46; Start 01/05/21 at 09:00 Carvedilol (Coreg) 25 mg BIDWMEALS PO Last administered on 01/13/21at 07:47; Start 01/05/21 at 08:00 Losartan Potassium (Cozaar) 100 mg DAILY PO Last administered on 01/13/21at 07:46; Start 01/05/21 at 09:00 Pantoprazole Sodium (Protonix) 40 mg DAILYAC PO Last administered on 01/13/21at 07:46; Start 01/05/21 at 07:30 Non-Formulary Medication (Ranitidine Hcl ) 300 mg HS PO ; Start 01/05/21 at 21:00; Status UNV Fentanyl Citrate (Fentanyl 2ml Vial) 50 mcg PRN Q3HRS PRN IVP PAIN Last administered on 01/09/21at 01:31; Start 01/06/21 at 02:30 Oxycodone HCl (Roxicodone) 5 mg Q4H PRN PO PAIN Last administered on 01/09/21at 14:46; Start 01/06/21 at 09:00; Stop 01/13/21 at 09:52; Status DC Lidocaine (Lidoderm) 2 patch DAILY TD Last administered on 01/13/21 07:48; Start 01/06/21 at 09:00 Miscellaneous (Lidoderm Patch Removal) 1 ea QHS MC Last administered on 01/12/21at 20:14; Start 01/06/21 at 21:00 Demeclocycline HCl (Declomycin) 300 mg BID@0700,2100 PO Last administered on at 07:46; Start 01/06/21 at 11:00 Docusate Sodium (Colace) 100 mg BID PO Last administered on 01/10/21at 11:23; Start 01/07/21 at 11:00 Polyethylene Glycol (miraLAX PACKET) 17 gm DAILY PO Last administered on 01/10/21at 11:24; Start 01/07/21 at 11:00 Potassium Chloride/Sodium Chloride 1,000 ml @ 75 mls/hr [id number] IV Last administered on 01/09/21at 01:55; Start 01/07/21 at 09:45; Stop 01/09/21 at 08:56; Status DC Dronabinol (Marinol) 2.5 mg BIDACLD PO Last administered on 01/13/21at 12:03; Start 01/08/21 at 11:30 Warfarin Sodium (Coumadin) 4 mg DAILY16 PO ; Start 01/10/21 at 16:00 Warfarin Sodium (Coumadin Per Physician) 1 each PRN DAILY PRN MC SEE COMMENTS Last administered on 01/12/21at 11:29; Start 01/10/21 at 12:45 Potassium Chloride/Sodium Chloride 1,000 ml @ 100 mls/hr Q10H IV Last administered on 01/13/21at 05:31; Start 01/11/21 at 08:45 Vancomycin HCl (Vanco Per Pharmacy) 1 each PRN DAILY PRN MC SEE COMMENTS Last administered on 01/12/21at 02:57; Start 01/11/21 at 20:00 Piperacillin Sod/ Tazobactam Sod 3.375 gm/Sodium Chloride 50 ml @ 100 mls/hr Q6HRS IV Last administered on 01/13/21at 12:04; Start 01/12/21 at 00:00 Acetaminophen (Tylenol Supp) 650 mg PRN Q6HRS PRN [place] MILD PAIN / TEMP > 100.3'F Last administered on 01/11/21at 20:53; Start 01/11/21 at 20:00 Acetaminophen (Tylenol) 650 mg PRN Q6HRS PRN PO MILD PAIN / TEMP > 100.3'F; Start 01/11/21 at 20:00 Vancomycin HCl 1.25 gm/Sodium Chloride 250 ml @ 166.667 mls/hr 1X ONCE IV Last administered on 01/11/21at 21:00; Start 01/11/21 at 21:00; Stop 01/11/21 at 22:29; Status DC Vancomycin HCl 750 mg/Sodium Chloride 250 ml @ 250 mls/hr Q24H IV Last administered on 01/12/21at 20:14; Start 01/12/21 at 21:00 Vancomycin HCl (Vancomycin Trough Level) 1 each 1X ONCE MC ; Start 01/13/21 at 20:30; Stop 01/13/21 at 20:31 Oxycodone HCl (Roxicodone) 5 mg PRN Q4HRS PRN PO MODERATE-SEVERE PAIN; Start 01/13/21 at 10:00 Active Scripts Active Reported Dilantin (Phenytoin Sodium Extended) 100 Mg Capsule 300 Mg PO QHS Nisoldipine 17 Mg Tab.er.24h 17 Mg PO DAILY Simvastatin 40 Mg Tablet 40 Mg PO HS Ranitidine Hcl 300 Mg Capsule 300 Mg PO HS Warfarin Sodium 4 Mg Tablet 4 Mg PO DAILY Alendronate Sodium 70 Mg Tablet 70 Mg PO WEEKLY Calcium + D Soft Chewable Tab (Ca Carbonate/Vitamin D3/Vit K) 1 Each Tab.chew 1 Each PO DAILY Protonix (Pantoprazole Sodium) 20 Mg Tablet.dr 20 Mg PO DAILY Folic Acid 1 Mg Tablet 1 Mg PO DAILY Klor-Con M20 (Potassium Chloride) 20 Meq Tab.er.prt 20 Meq PO DAILY Hydrochlorothiazide Tablet (Hydrochlorothiazide) 25 Mg Tablet 25 Mg PO DAILY Losartan Potassium 100 Mg Tablet 100 Mg PO DAILY Carvedilol 25 Mg Tablet 25 Mg PO BIDWMEALS Vitals/I & O Vital Sign - Last 24 Hours 01/12/21 01/12/21 01/12/21 01/12/21 15:00 19:00 20:00 23:00 Temp 98.4 98.1 97.8 98.4 98.1 97.8 Pulse 77 82 74 Resp 16 20 20 B/P (MAP) 149/52 (84) 143/52 (82) 97/54 (68) Pulse Ox 92 95 96 O2 Delivery Room Air Room Air Room Air Room Air 01/13/21 01/13/21 01/13/21 01/13/21 03:00 07:00 07:46 07:47 Temp 98.0 97.5 98.0 97.5 Pulse 74 71 68 68 Resp 20 20 B/P (MAP) 154/53 (86) 201/74 (116) 182/66 182/66 Pulse Ox 94 95 O2 Delivery Room Air Room Air 01/13/21 01/13/21 01/13/21 07:48 08:00 10:54 Temp 98.4 98.4 Pulse 68 74 Resp 18 B/P (MAP) 182/66 134/56 (82) Pulse Ox 94 O2 Delivery Room Air Room Air Intake and Output 01/12/21 01/12/21 01/13/21 15:00 23:00 07:00 Intake Total 237 ml Balance 237 ml Justicifation of Admission Dx: Justifications for Admission: Justification of Admission Dx: Yes LEEROY MELENDEZ MD Jan 13, 2021 14:12
[2021-01-13] MEDS: VANCOMYCIN PER PHARMACY MC PRN ×2 (14:59→21:11)
[2021-01-13 15:11] VITALS: BP 167/66
[2021-01-13] MEDS: WARFARIN 4 MG TABLET. PO SCH (17:29)
[2021-01-13 19:00] VITALS: BP 131/53
[2021-01-13] MEDS: LACTOBACILLUS RHAMNOSUS GG 1 CAPSULE. PO SCH (19:49)
[2021-01-13] MEDS: ATORVASTATIN CALCIUM 20 MG TABLET PO SCH (19:49)
[2021-01-13 20:52] LABS: VANC TR 3.1 mcg/mL (10.0-20.0)
[2021-01-13] MEDS: PATCH REMOVAL. MC SCH (21:00)
--- NOTE | 2021-01-13 21:15 | NUR ---
Pharmacy Vancomycin Dosing Note S:Consulted to monitor and dose vancomycin started 01/11/21. O:COLLEEN LANDIN is a 85 year old F with Empiric FEVER . Height: 5 feet, 2 inches Weight: 48.4 kg [place] Body Weight: 50.10 Adjusted Body Weight: 49.42 Dosing Weight: Actual Other Antibiotics: ZOSYN LABS: Last BUN: 13 Last Creatinine: 0.6 Creatinine Clearance: 34 mL/min Last WBC: 7.3 Last Procalcitonin: Tmax (past 24 hours): 101.5 Microbiology: 01/12 BCX PENDING I/O: not recorded, 3 voids Drug Levels: Last Trough level: 3.1 on 01/13/21 at 2030 Last dose given 01/11/21 at 2100 Vancomycin Dosing: Loading Dose: 1250 mg x1 Dosing Weight: Actual Target Trough: 15-20 A: Based on: LEVEL AND RENAL FUNCTION, P: 1. Change Vancomycin 750 mg IV q12h 2. Follow up Trough level on 01/15/21 at 0900 3. Pharmacy will continue to monitor, follow and adjust therapy as needed. TIFFANI MONROE Marla, 01/13/21 [id number]
[2021-01-13] MEDS ORDERED: VANCOMYCIN 750 MG in IV NORMAL SALINE 250ML 250 ML IV SCH (21:30)
[2021-01-13 23:00] VITALS: BP 144/61
[2021-01-14 03:00] VITALS: BP 150/66
[2021-01-14] MEDS: PIPERACILLIN/TAZOBACTAM 3.375 GM in IV NORMAL SALINE 50ML 50 ML IV SCH ×4 (05:20→23:15)
[2021-01-14] MEDS: PANTOPRAZOLE 40 MG TABLET.DR. PO SCH (05:53)
[2021-01-14] MEDS: DEMECLOCYCLINE HCL 150 MG TABLET. PO SCH ×2 (05:55→20:54)
[2021-01-14 07:00] VITALS: BP 209/73
[2021-01-14] MEDS: LIDOCAINE (700MG/PATCH) PATCH. TD SCH (08:10)
[2021-01-14] MEDS: POLYETHYLENE GLYCOL 3350 17 GM PACKET. PO SCH (08:10)
[2021-01-14] MEDS: FOLIC ACID 1 MG TABLET. PO SCH (08:24)
[2021-01-14] MEDS: CARVEDILOL 12.5 MG TABLET. PO SCH ×2 (08:24→16:26)
[2021-01-14] MEDS: CALCIUM CARB/VIT D3 500/200 TABLET. PO SCH (08:24)
[2021-01-14 08:25] LABS: ALBUMIN 2.3 g/dL (3.4-5.0); ALBUMIN/GLOBULIN RATIO 0.6 (1.0-1.7); CALCIUM 7.2 mg/dL (8.5-10.1); CREATININE 0.6 mg/dL (0.6-1.0); TOTAL BILIRUBIN 0.3 mg/dL (0.2-1.0); TOTAL PROTEIN 6.1 g/dL (6.4-8.2)
[2021-01-14] MEDS: LOSARTAN POTASSIUM 50 MG TABLET. PO SCH (08:25)
[2021-01-14] MEDS: oxyCODONE IR 5 MG TABLET PO PRN (08:25)
[2021-01-14] MEDS: POTASSIUM CHLORIDE 20 MEQ TABLET.ER. PO SCH (08:25)
[2021-01-14] MEDS: LACTOBACILLUS RHAMNOSUS GG 1 CAPSULE. PO SCH ×2 (08:25→20:54)
[2021-01-14] MEDS: DOCUSATE SODIUM 100 MG CAPSULE. PO SCH ×2 (08:25→20:54)
[2021-01-14 08:32] LABS: BASO # 0.1 x10^3/uL (0.0-0.2); BASO % 1 % (0-3); EOS # 0.4 x10^3/uL (0.0-0.7); EOS % 6 % (0-3); HEMATOCRIT 35.3 % (36.0-47.0); LYMPH # 0.9 x10^3/uL (1.0-4.8); LYMPH % 13 % (24-48); MEAN CORPUSCULAR HEMOGLOBIN 29 pg (25-35); MEAN CORPUSCULAR HGB CONC 34 g/dL (31-37); MEAN CORPUSCULAR VOLUME 86 fL (79-100); MONO # 0.7 x10^3/uL (0.0-1.1); MONO % 11 % (0-9); NEUT # 4.5 x10^3/uL (1.8-7.7); NEUT % 68 % (31-73); PLATELET COUNT 332 x10^3/uL (140-400); RED BLOOD COUNT 4.09 x10^6/uL (3.50-5.40); RED CELL DISTRIBUTION WIDTH 14.1 % (11.5-14.5); WHITE BLOOD COUNT 6.6 x10^3/uL (4.0-11.0)
--- NOTE | 2021-01-14 08:40 | PDOC ---
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 EOMI. CN: Left visual field cut Muscle tone: normal. Muscle strength: 4/5 DTR: 2+ Bilateral grasp reflexes Plantar reflex: Flexor Gait: not examined in bed. Sensory exam: no abnormal findings. Cerebellar: Not cooperative Review of Relevant I have reviewed the following items jimmy (where applicable) has been applied. Labs Laboratory Tests Test 01/13/21 08:15 01/13/21 20:20 01/14/21 07:40 Prothrombin Time 19.6 SEC (11.7-14.0) Prothromb Time International Ratio 1.7 (0.8-1.1) Potassium Level 4.4 mmol/L (3.5-5.1) 4.0 mmol/L (3.5-5.1) Creatinine 0.6 mg/dL (0.6-1.0) 0.6 mg/dL (0.6-1.0) Estimated GFR (Cockcroft-Gault) 95.0 95.0 Phenytoin (Dilantin) Level 39.7 mcg/mL (10.0-20.0) Phenytoin Last Dose Date 01/10/21 Phenytoin Last Dose Time 2100 Vancomycin Level Trough 3.1 mcg/mL (10.0-20.0) Vancomycin Last Dose Date Vancomycin Last Dose Time 2100 White Blood Count 6.6 x10^3/uL (4.0-11.0) Red Blood Count 4.09 x10^6/uL (3.50-5.40) Hemoglobin 12.0 g/dL (12.0-15.5) Hematocrit 35.3 % (36.0-47.0) Mean Corpuscular Volume 86 fL (79-100) Mean Corpuscular Hemoglobin 29 pg (25-35) Mean Corpuscular Hemoglobin Concent 34 g/dL (31-37) Red Cell Distribution Width 14.1 % (11.5-14.5) Platelet Count 332 x10^3/uL (140-400) Neutrophils (%) (Auto) 68 % (31-73) Lymphocytes (%) (Auto) 13 % (24-48) Monocytes (%) (Auto) 11 % (0-9) Eosinophils (%) (Auto) 6 % (0-3) Basophils (%) (Auto) 1 % (0-3) Neutrophils # (Auto) 4.5 x10^3/uL (1.8-7.7) Lymphocytes # (Auto) 0.9 x10^3/uL (1.0-4.8) Monocytes # (Auto) 0.7 x10^3/uL (0.0-1.1) Eosinophils # (Auto) 0.4 x10^3/uL (0.0-0.7) Basophils # (Auto) 0.1 x10^3/uL (0.0-0.2) Sodium Level 135 mmol/L (136-145) Chloride Level 100 mmol/L (98-107) Carbon Dioxide Level 27 mmol/L (21-32) Anion Gap 8 (6-14) Blood Urea Nitrogen 6 mg/dL (7-20) BUN/Creatinine Ratio 10 (6-20) Glucose Level 110 mg/dL (70-99) Calcium Level 7.2 mg/dL (8.5-10.1) Total Bilirubin 0.3 mg/dL (0.2-1.0) Aspartate Amino Transf (AST/SGOT) 20 U/L (15-37) Alanine Aminotransferase (ALT/SGPT) 22 U/L (14-59) Alkaline Phosphatase 116 U/L (46-116) Total Protein 6.1 g/dL (6.4-8.2) Albumin 2.3 g/dL (3.4-5.0) Albumin/Globulin Ratio 0.6 (1.0-1.7) Laboratory Tests Test 01/13/21 20:20 01/14/21 07:40 Vancomycin Level Trough 3.1 mcg/mL (10.0-20.0) Vancomycin Last Dose Date Vancomycin Last Dose Time 2100 White Blood Count 6.6 x10^3/uL (4.0-11.0) Red Blood Count 4.09 x10^6/uL (3.50-5.40) Hemoglobin 12.0 g/dL (12.0-15.5) Hematocrit 35.3 % (36.0-47.0) Mean Corpuscular Volume 86 fL (79-100) Mean Corpuscular Hemoglobin 29 pg (25-35) Mean Corpuscular Hemoglobin Concent 34 g/dL (31-37) Red Cell Distribution Width 14.1 % (11.5-14.5) Platelet Count 332 x10^3/uL (140-400) Neutrophils (%) (Auto) 68 % (31-73) Lymphocytes (%) (Auto) 13 % (24-48) Monocytes (%) (Auto) 11 % (0-9) Eosinophils (%) (Auto) 6 % (0-3) Basophils (%) (Auto) 1 % (0-3) Neutrophils # (Auto) 4.5 x10^3/uL (1.8-7.7) Lymphocytes # (Auto) 0.9 x10^3/uL (1.0-4.8) Monocytes # (Auto) 0.7 x10^3/uL (0.0-1.1) Eosinophils # (Auto) 0.4 x10^3/uL (0.0-0.7) Basophils # (Auto) 0.1 x10^3/uL (0.0-0.2) Sodium Level 135 mmol/L (136-145) Potassium Level 4.0 mmol/L (3.5-5.1) Chloride Level 100 mmol/L (98-107) Carbon Dioxide Level 27 mmol/L (21-32) Anion Gap 8 (6-14) Blood Urea Nitrogen 6 mg/dL (7-20) Creatinine 0.6 mg/dL (0.6-1.0) Estimated GFR (Cockcroft-Gault) 95.0 BUN/Creatinine Ratio 10 (6-20) Glucose Level 110 mg/dL (70-99) Calcium Level 7.2 mg/dL (8.5-10.1) Total Bilirubin 0.3 mg/dL (0.2-1.0) Aspartate Amino Transf (AST/SGOT) 20 U/L (15-37) Alanine Aminotransferase (ALT/SGPT) 22 U/L (14-59) Alkaline Phosphatase 116 U/L (46-116) Total Protein 6.1 g/dL (6.4-8.2) Albumin 2.3 g/dL (3.4-5.0) Albumin/Globulin Ratio 0.6 (1.0-1.7) Microbiology 01/11/21 Blood Culture - Preliminary, Resulted NO GROWTH AFTER 2 DAYS Medications Current Medications Ondansetron HCl (Zofran) 4 mg PRN Q8HRS PRN IVP NAUSEA/VOMITING; Start 01/04/21 at 20:00; Stop 01/05/21 at 19:59; Status DC Fentanyl Citrate (Fentanyl 2ml Vial) 50 mcg PRN Q1HR PRN IVP PAIN Last administered on 01/04/21at 21:52; Start 01/04/21 at 20:00; Stop 01/05/21 at 19:59; Status DC Acetaminophen (Tylenol) 650 mg PRN Q4HRS PRN PO FEVER > 100.3'F; Start 01/04/21 at 20:00; Stop 01/05/21 at 19:59; Status DC Albuterol/ Ipratropium (Duoneb) 3 ml RTQID PRN NEB dyspnea/wheezing; Start 01/04/21 at 20:00; Stop 01/05/21 at 19:59; Status DC Amlodipine Besylate (Norvasc) 5 mg 1X ONCE PO Last administered on 01/04/21at 20:35; Start 01/04/21 at 20:00; Stop 01/04/21 at 20:19; Status DC Hydralazine HCl (Apresoline Inj) 10 mg 1X ONCE IVP Last administered on 01/04/21at 20:36; Start 01/04/21 at 20:15; Stop 01/04/21 at 20:19; Status DC Hydralazine HCl (Apresoline Inj) 20 mg TID PRN PRN IVP ELEVATED BP, SEE COMMENTS Last administered on 01/11/21at 12:40; Start 01/04/21 at 22:45 Amlodipine Besylate (Norvasc) 10 mg DAILY PO Last administered on 01/14/21at 08:24; Start 01/05/21 at 09:00 Folic Acid (Folic Acid) 1 mg DAILY PO Last administered on 01/14/21at 08:24; Start 01/05/21 at 09:00 Hydrochlorothiazide (Hydrodiuril) 25 mg DAILY PO Last administered on 01/09/21at 09:50; Start 01/05/21 at 09:00; Stop 01/10/21 at 10:40; Status DC Phenytoin Sodium (Dilantin) 300 mg TID PO Last administered on 01/10/21at 11:20; Start 01/05/21 at 00:00; Stop 01/11/21 at 10:58; Status DC Potassium Chloride (Klor-Con) 20 meq DAILY PO Last administered on 01/14/21at 08:25; Start 01/05/21 at 09:00 Atorvastatin Calcium (Lipitor) 20 mg QHS PO Last administered on 01/13/21at 19:49; Start 01/05/21 at 21:00 Non-Formulary Medication (Alendronate Sodium ) 70 mg WEEKLY PO ; Start 01/11/21 at 09:00; Status UNV Calcium/Vitamin D (Oscal D 500mg/ 200uts) 1 tab DAILY PO Last administered on 01/14/21at 08:24; Start 01/05/21 at 09:00 Carvedilol (Coreg) 25 mg BIDWMEALS PO Last administered on 01/14/21at 08:24; Start 01/05/21 at 08:00 Losartan Potassium (Cozaar) 100 mg DAILY PO Last administered on 01/14/21at 08:25; Start 01/05/21 at 09:00 Pantoprazole Sodium (Protonix) 40 mg DAILYAC PO Last administered on 01/14/21at 05:53; Start 01/05/21 at 07:30 Non-Formulary Medication (Ranitidine Hcl ) 300 mg HS PO ; Start 01/05/21 at 21:00; Status UNV Fentanyl Citrate (Fentanyl 2ml Vial) 50 mcg PRN Q3HRS PRN IVP PAIN Last administered on 01/09/21 01:31; Start 01/06/21 at 02:30 Oxycodone HCl (Roxicodone) 5 mg Q4H PRN PO PAIN Last administered on 01/09/21 14:46; Start 01/06/21 at 09:00; Stop 01/13/21 at 09:52; Status DC Lidocaine (Lidoderm) 2 patch DAILY TD Last administered on 01/10/21 11:27; Start 01/06/21 at 09:00 Miscellaneous (Lidoderm Patch Removal) 1 ea QHS MC Last administered on 01/13/21at 21:00; Start 01/06/21 at 21:00 Demeclocycline HCl (Declomycin) 300 mg BID@0700,2100 PO Last administered on 01/14/21 05:55; Start 01/06/21 at 11:00 Docusate Sodium (Colace) 100 mg BID PO Last administered on 01/14/21 08:25; Start 01/07/21 at 11:00 Polyethylene Glycol (miraLAX PACKET) 17 gm DAILY PO Last administered on 11:24; Start 01/07/21 at 11:00 Potassium Chloride/Sodium Chloride 1,000 ml @ 75 mls/hr [id number] IV Last administered on 01/09/21 01:55; Start 01/07/21 at 09:45; Stop 01/09/21 at 08:56; Status DC Dronabinol (Marinol) 2.5 mg BIDACLD PO Last administered on 01/13/21 17:29; Start 01/08/21 at 11:30 Warfarin Sodium (Coumadin) 4 mg DAILY16 PO Last administered on 01/13/21 17:29; Start 01/10/21 at 16:00 Warfarin Sodium (Coumadin Per Physician) 1 each PRN DAILY PRN MC SEE COMMENTS Last administered on 01/13/21 16:45; Start 01/10/21 at 12:45 Potassium Chloride/Sodium Chloride 1,000 ml @ 100 mls/hr Q10H IV Last a dministered on 01/13/21 05:31; Start 01/11/21 at 08:45; Stop 01/13/21 at 16:18; Status DC Vancomycin HCl (Vanco Per Pharmacy) 1 each PRN DAILY PRN MC SEE COMMENTS Last administered on 01/13/21at 21:11; Start 01/11/21 at 20:00 Piperacillin Sod/ Tazobactam Sod 3.375 gm/Sodium Chloride 50 ml @ 100 mls/hr Q6HRS IV Last administered on 01/14/21at 05:20; Start 01/12/21 at 00:00 Acetaminophen (Tylenol Supp) 650 mg PRN Q6HRS PRN [place] MILD PAIN / TEMP > 100.3'F Last administered on 01/11/21at 20:53; Start 01/11/21 at 20:00 Acetaminophen (Tylenol) 650 mg PRN Q6HRS PRN PO MILD PAIN / TEMP > 100.3'F; Start 01/11/21 at 20:00 Vancomycin HCl 1.25 gm/Sodium Chloride 250 ml @ 166.667 mls/hr 1X ONCE IV Last administered on 01/11/21at 21:00; Start 01/11/21 at 21:00; Stop 01/11/21 at 22:29; Status DC Vancomycin HCl 750 mg/Sodium Chloride 250 ml @ 250 mls/hr Q24H IV Last administered on 01/12/21at 20:14; Start 01/12/21 at 21:00; Stop 01/13/21 at 21:08; Status DC Vancomycin HCl (Vancomycin Trough Level) 1 each 1X ONCE MC Last administered on 01/13/21at 20:30; Start 01/13/21 at 20:30; Stop 01/13/21 at 20:31; Status DC Oxycodone HCl (Roxicodone) 5 mg PRN Q4HRS PRN PO MODERATE-SEVERE PAIN Last administered on 01/14/21at 08:25; Start 01/13/21 at 10:00 Potassium Chloride/Sodium Chloride 1,000 ml @ 100 mls/hr Q10H IV Last administered on 01/14/21at 05:22; Start 01/13/21 at 16:30 Lactobacillus Rhamnosus (Culturelle) 1 cap BID PO Last administered on 01/14/21at 08:25; Start 01/13/21 at 21:00 Vancomycin HCl 750 mg/Sodium Chloride 250 ml @ 250 mls/hr Q12H IV Last administered on 01/13/21at 22:01; Start 01/13/21 at 21:30 Vancomycin HCl (Vancomycin Trough Level) 1 each 1X ONCE MC ; Start 01/15/21 at 09:00; Stop 01/15/21 at 09:01 Active Scripts Active Reported Dilantin (Phenytoin Sodium Extended) 100 Mg Capsule 300 Mg PO QHS Nisoldipine 17 Mg Tab.er.24h 17 Mg PO DAILY Simvastatin 40 Mg Tablet 40 Mg PO HS Ranitidine Hcl 300 Mg Capsule 300 Mg PO HS Warfarin Sodium 4 Mg Tablet 4 Mg PO DAILY Alendronate Sodium 70 Mg Tablet 70 Mg PO WEEKLY Calcium + D Soft Chewable Tab (Ca Carbonate/Vitamin D3/Vit K) 1 Each Tab.chew 1 Each PO DAILY Protonix (Pantoprazole Sodium) 20 Mg Tablet.dr 20 Mg PO DAILY Folic Acid 1 Mg Tablet 1 Mg PO DAILY Klor-Con M20 (Potassium Chloride) 20 Meq Tab.er.prt 20 Meq PO DAILY Hydrochlorothiazide Tablet (Hydrochlorothiazide) 25 Mg Tablet 25 Mg PO DAILY Losartan Potassium 100 Mg Tablet 100 Mg PO DAILY Carvedilol 25 Mg Tablet 25 Mg PO BIDWMEALS Vitals/I & O Vital Sign - Last 24 Hours 01/13/21 01/13/21 01/13/21 01/13/21 10:54 15:11 17:30 19:00 Temp 98.4 98.1 98.2 98.4 98.1 98.2 Pulse 74 73 73 70 Resp 18 18 18 B/P (MAP) 134/56 (82) 167/66 (99) 167/66 131/53 (79) Pulse Ox 94 98 97 O2 Delivery Room Air Room Air Room Air 01/13/21 01/13/21 01/14/21 01/14/21 20:00 23:00 03:00 07:00 Temp 98.3 98.1 98.2 98.3 98.1 98.2 Pulse 71 69 70 Resp 18 18 18 B/P (MAP) 144/61 (88) 150/66 (94) 209/73 (118) Pulse Ox 97 97 96 O2 Delivery Room Air Room Air Room Air Room Air 01/14/21 01/14/21 01/14/21 01/14/21 07:23 08:24 08:24 08:25 Pulse 70 70 70 B/P (MAP) 209/73 209/73 209/73 O2 Delivery Room Air Intake and Output 01/13/21 01/13/21 01/14/21 15:00 23:00 07:00 Intake Total 150 ml 200 ml Balance 150 ml 200 ml Justicifation of Admission Dx: Justifications for Admission: Justification of Admission Dx: Yes LEEROY MELENDEZ MD Jan 14, 2021 08:40
[2021-01-14 08:50] LABS: PROTHROMBIN TIME PATIENT 15.1 SEC (11.7-14.0)
--- NOTE | 2021-01-14 09:20 | PN ---
DATE: 01/14/2021 SUBJECTIVE: The patient is sitting, slightly propped up in bed, in no apparent distress. She is feeding herself, stating that she is hungry. She denied any complaint. Nursing staff did not voice any concern. Her lab work showed that her white cell count was 6600, normal hemoglobin, hematocrit and platelets. Her blood cultures are negative x 2, showed no growth over the last 2 days and therefore, I will discontinue her vancomycin. PHYSICAL EXAMINATION: GENERAL: When I examined her, she was pale, cachectic, but no jaundice, cyanosis or thyromegaly. No jugular venous distention. No limb edema. VITAL SIGNS: Her heart rate was 70, blood pressure is 209/73, temperature was 98.2, respiratory rate was 18 and oxygen saturation was 96% on room air. HEAD, EYES, EARS, NOSE, AND THROAT: Normocephalic, atraumatic. NECK: Supple. HEART: Normal first and second heart sounds, no gallop, rub or murmur. CHEST: Clear to auscultation, no crepitation or rhonchi. ABDOMEN: Distended, soft, nontender. NEUROLOGIC: She is definitely more awake, alert. All her cranial nerves intact. She moves extremities without difficulty. She is actually able to feed herself now. Her intake over the last 24 hours and output are incompletely recorded. LABORATORY DATA: Her lab work this morning showed a white cell count of 6600, hemoglobin 12, hematocrit 35, MCV 86 and platelet count of 332,000. Serum sodium was 135, potassium 4, chloride 100, bicarbonate 27, anion gap of 8, BUN 6, creatinine 0.6. Estimated GFR was 95 mL per minute. Her glucose was 110, calcium was 7.2. Total bilirubin, AST, ALT, alkaline phosphatase were normal. Total protein 6.1, albumin 2.3. As of yesterday, her prothrombin time was 19.6, INR 1.7. Her toxic screen showed that her vancomycin trough level was 3. Urinalysis essentially unremarkable. ASSESSMENT: 1. Altered mental status. 2. Toxic encephalopathy due to Dilantin toxicity. 3. Closed traumatic nondisplaced fracture of multiple ribs on the right side. 4. Hypokalemia, resolved. Her serum potassium is 4.8. 5. Hyponatremia, resolved. Her serum sodium was 135. 6. Seizure disorder; however, her phenytoin is supratherapeutic. 7. 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 8. Sepsis with no obvious site as her blood cultures were negative and showed no growth in 2 days, I will discontinue the vancomycin. We will repeat her phenytoin tomorrow and if it is within therapeutic range, the patient can be discharged. Meanwhile, we will continue physical and occupational therapy. If intake is adequate, we can discontinue the IV fluid. AURY DR: Jaqueline TID: [id number]
--- NOTE | 2021-01-14 09:44 | NUR ---
SW following. Discussed with RN, pt likely ready for discharge to [facility] ([facility]) on Sunday. Facility notified.
[2021-01-14 11:18] VITALS: BP 149/60
[2021-01-14] MEDS: DRONABINOL 2.5 MG CAPSULE. PO SCH ×2 (11:44→15:32)
[2021-01-14 15:00] VITALS: BP 142/57
[2021-01-14] MEDS: WARFARIN 4 MG TABLET. PO SCH (15:32)
[2021-01-14 19:45] VITALS: BP 144/69
[2021-01-14] MEDS: ATORVASTATIN CALCIUM 20 MG TABLET PO SCH (20:54)
[2021-01-14] MEDS: PATCH REMOVAL. MC SCH (20:55)
[2021-01-14 23:13] VITALS: BP 136/63
[2021-01-15 03:00] VITALS: BP 138/58
[2021-01-15] MEDS: DEMECLOCYCLINE HCL 150 MG TABLET. PO SCH ×2 (05:24→21:16)
[2021-01-15] MEDS: PANTOPRAZOLE 40 MG TABLET.DR. PO SCH (05:24)
[2021-01-15] MEDS: PIPERACILLIN/TAZOBACTAM 3.375 GM in IV NORMAL SALINE 50ML 50 ML IV SCH ×3 (05:25→16:29)
[2021-01-15] MEDS: oxyCODONE IR 5 MG TABLET PO PRN ×2 (05:30→12:54)
[2021-01-15] MEDS: DOCUSATE SODIUM 100 MG CAPSULE. PO SCH ×2 (06:35→21:16)
[2021-01-15] MEDS: POLYETHYLENE GLYCOL 3350 17 GM PACKET. PO SCH (06:35)
[2021-01-15] MEDS: LIDOCAINE (700MG/PATCH) PATCH. TD SCH (06:36)
[2021-01-15 07:00] VITALS: BP 167/70
[2021-01-15 09:08] LABS: HEMATOCRIT 33.5 % (36.0-47.0); HEMOGLOBIN 11.3 g/dL (12.0-15.5); RED BLOOD COUNT 3.86 x10^6/uL (3.50-5.40); WHITE BLOOD COUNT 6.6 x10^3/uL (4.0-11.0)
[2021-01-15] MEDS: LOSARTAN POTASSIUM 50 MG TABLET. PO SCH (09:09)
[2021-01-15] MEDS: CARVEDILOL 12.5 MG TABLET. PO SCH ×2 (09:09→14:57)
[2021-01-15] MEDS: CALCIUM CARB/VIT D3 500/200 TABLET. PO SCH (09:09)
[2021-01-15] MEDS: LACTOBACILLUS RHAMNOSUS GG 1 CAPSULE. PO SCH ×2 (09:09→21:16)
[2021-01-15] MEDS: POTASSIUM CHLORIDE 20 MEQ TABLET.ER. PO SCH (09:10)
[2021-01-15] MEDS: FOLIC ACID 1 MG TABLET. PO SCH (09:10)
[2021-01-15 09:32] LABS: PHENY 25.4 mcg/mL (10.0-20.0)
[2021-01-15 09:49] LABS: ALBUMIN 2.1 g/dL (3.4-5.0); ALBUMIN/GLOBULIN RATIO 0.6 (1.0-1.7); CALCIUM 6.9 mg/dL (8.5-10.1); CREATININE 0.6 mg/dL (0.6-1.0); TOTAL BILIRUBIN 0.3 mg/dL (0.2-1.0); TOTAL PROTEIN 5.6 g/dL (6.4-8.2)
--- NOTE | 2021-01-15 10:29 | PN ---
DATE: 01/15/2021 SUBJECTIVE: The patient is resting, slightly propped up in bed, in no apparent distress. She is awake, alert, responding appropriately. On questioning her, she denied any complaint. Nursing staff stated that she is more awake, alert, cooperative and compliant with care. PHYSICAL EXAMINATION: GENERAL: When I examined her, she was pale, cachectic, but not jaundiced or cyanosed. No lymphadenopathy, no thyromegaly, no jugular venous distention. No limb edema. VITAL SIGNS: Her heart rate was 72, blood pressure was 167/70, temperature was 98, respiratory rate 20, and oxygen saturation was 96% on room air. HEAD, EYES, EARS, NOSE, AND THROAT: Normocephalic, atraumatic. NECK: Supple. HEART: Normal first and second heart sounds, no gallop, rub or murmur. CHEST: Showed central trachea, equal bilateral chest expansion, air entry, vesicular breath sounds. No crepitation or rhonchi. ABDOMEN: Distended, soft, nontender. NEUROLOGIC: She is awake, alert, responding appropriately. All cranial nerves intact. She moves extremities without difficulty. Her intake and output were incompletely recorded. Her blood cultures were negative. LABORATORY DATA: This morning showed that her prothrombin time was 20. INR 1.7. Her chemistry and Dilantin levels are still pending at the time of this dictation. ASSESSMENT: 1. Altered mental status, likely due to Dilantin toxicity with resultant toxic encephalopathy. 2. Closed traumatic nondisplaced fracture of multiple ribs on the right side. 3. Hypokalemia, resolved. Her serum potassium was 4.8. 4. Hyponatremia, resolved. Her most recent serum sodium was 135 mEq per liter. 5. Seizure disorder for which she was on phenytoin. However, her phenytoin level was supratherapeutic. 6. 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 7. Sepsis with no obvious site as the blood cultures were negative. PLAN: I did discontinue her vancomycin. I am waiting for the phenytoin level as well as the result of stool for C. diff. Meanwhile, we will continue with physical and occupational therapy. I will probably discontinue her IV fluid.. SUMANTH/EREN DR: Jaqueline TID: [id number]
[2021-01-15 11:00] VITALS: BP 194/78
[2021-01-15] MEDS: DRONABINOL 2.5 MG CAPSULE. PO SCH ×2 (11:54→16:28)
[2021-01-15] MEDS: hydrALAZINE 20 MG/ML VIAL. IVP PRN (12:11)
[2021-01-15 14:54] VITALS: BP 108/50
[2021-01-15] MEDS: WARFARIN 4 MG TABLET. PO SCH (16:28)
[2021-01-15 19:00] VITALS: BP 132/58
[2021-01-15] MEDS: ATORVASTATIN CALCIUM 20 MG TABLET PO SCH (21:16)
[2021-01-15] MEDS: AMOXICILLIN/K CLAV 500/125MG TABLET. PO SCH (21:16)
[2021-01-15] MEDS: PATCH REMOVAL. MC SCH (21:17)
[2021-01-15 23:00] VITALS: BP 192/88
[2021-01-16] VITALS (8 sets, daily range): BP systolic 123–204; BP diastolic 31–79
--- NOTE | 2021-01-16 01:07 | NUR ---
CAREER BASED INTERVENTION COORDINATOR stated B/P 192/88, pulse 74. Patient agitated and brief wet with BM in it. Patient cleaned and repositioned. Patient agitation decreased. Current B/P 166/58, pulse 72. Will recheck B/P in a few minutes and give Hydralazine PRN if needed.
--- NOTE | 2021-01-16 01:26 | NUR ---
B/P 155/51, pulse 71. Hydralazine held at this time as B/P below parameters to give at this time.
[2021-01-16] MEDS: oxyCODONE IR 5 MG TABLET PO PRN ×2 (04:25→19:55)
[2021-01-16] MEDS: DEMECLOCYCLINE HCL 150 MG TABLET. PO SCH ×2 (06:18→19:54)
[2021-01-16] MEDS: PANTOPRAZOLE 40 MG TABLET.DR. PO SCH (06:20)
[2021-01-16] MEDS: LIDOCAINE (700MG/PATCH) PATCH. TD SCH (08:16)
[2021-01-16] MEDS: POLYETHYLENE GLYCOL 3350 17 GM PACKET. PO SCH (08:16)
[2021-01-16] MEDS: DOCUSATE SODIUM 100 MG CAPSULE. PO SCH ×2 (08:16→19:55)
[2021-01-16] MEDS: AMOXICILLIN/K CLAV 500/125MG TABLET. PO SCH ×2 (08:38→19:54)
[2021-01-16] MEDS: CALCIUM CARB/VIT D3 500/200 TABLET. PO SCH (08:38)
[2021-01-16] MEDS: POTASSIUM CHLORIDE 20 MEQ TABLET.ER. PO SCH (08:39)
[2021-01-16] MEDS: LACTOBACILLUS RHAMNOSUS GG 1 CAPSULE. PO SCH ×2 (08:39→19:55)
[2021-01-16] MEDS: FOLIC ACID 1 MG TABLET. PO SCH (08:39)
[2021-01-16] MEDS: CARVEDILOL 12.5 MG TABLET. PO SCH ×2 (08:40→16:32)
[2021-01-16] MEDS: LOSARTAN POTASSIUM 50 MG TABLET. PO SCH (08:40)
--- NOTE | 2021-01-16 09:54 | RAD ---
XR CHEST 1V CLINICAL INDICATIONS: Reason: worsening shortness of breath / Spl. Instructions: / History: COMPARISON: January 12, 2021 Findings: Small bilateral pleural effusions are evident. Improvement of left lung base infiltrate or atelectasis seen previously. Mild bilateral bronchitis is again evident and is unchanged. No new lung consolidation is seen. No pneumothorax is evident. The heart size and mediastinum are stable. Old he aled proximal left humeral fracture is seen. There is a compression fracture of the lower thoracic ve rtebral body. This is unchanged. IMPRESSION: Small bilateral pleural effusions. Improvement of left lung base infiltrate or atelectasi s seen previously. Mild bilateral bronchitis. Electronically signed by: Manfred Kulkarni MD (01/16/2021 9:51 AM) [id number]
--- NOTE | 2021-01-16 09:55 | PN ---
DATE: 01/16/2021 SUBJECTIVE: The patient is sitting propped up in her bed, complaining that she is not feeling well. She is very tachypneic; however, she denied any chest pain. Denied any cough, phlegm or hemoptysis. PHYSICAL EXAMINATION: GENERAL: When I examined her, she was pale, not jaundiced or cyanosed. No lymphadenopathy, no thyromegaly, no jugular venous distention. No lower limb edema. VITAL SIGNS: Her heart rate was 73, blood pressure is 104/78, her temperature was 98, respiratory rate was 24 and oxygen saturation was 97-98% on room air. HEAD, EYES, EARS, NOSE, AND THROAT: Normocephalic, atraumatic. NECK: Supple. HEART: Normal first and second heart sounds, no gallop, rub or murmur. CHEST: Showed central trachea, equal bilateral chest expansion, air entry, vesicular breath sounds. I could not really appreciate any crepitation or rhonchi. ABDOMEN: Distended, soft, nontender. NEUROLOGIC: She is awake, alert, responding appropriately. All her cranial nerves are intact. She moves all extremities without difficulty.. Her intake over the last 24 hours was 450, no output was recorded. LABORATORY DATA: As of yesterday showed a white cell count of 6600, hemoglobin 11, hematocrit 33, MCV was 87 and platelet count 261,000. Chemistry showed a serum sodium 135, potassium 4, chloride 100, bicarbonate 27, anion gap of 8, BUN 8, creatinine 0.6, estimated GFR was 95 mL per minute. Her glucose was 92, calcium was 6.9. Total bilirubin, AST, ALT, alkaline phosphatase were normal. Total protein was 5.6, albumin was 2.1. As of yesterday, her prothrombin time was 20 and INR of 1.7. As of yesterday her phenytoin level was 25.4, which is obviously continues to be supratherapeutic. ASSESSMENT: 1. Altered mental status, likely due to Dilantin toxicity. Her Dilantin level is trending down. Hopefully, by tomorrow, it will be within therapeutic range. 2. Closed traumatic nondisplaced fracture of multiple ribs on the right side. There is no evidence of any pneumothorax or hemothorax. 3. Hypokalemia, resolved. Her most recent serum potassium was up to 4.8. 4. Hyponatremia, resolved. Her most recent serum sodium is up to 135 mEq per liter. 5. Seizure disorder for which she was on phenytoin. However, her phenytoin level was supratherapeutic. 6. Right occipital stroke with left homonymous hemianopia. 7. Sepsis with no obvious site, blood culture was negative. I discontinued both vancomycin and Zosyn. She is now on Augmentin twice a day. I did repeat a chest x-ray this morning which showed no evidence of any infiltrate, pneumothorax, pleural effusion and/or congestion and her stool for C. diff were negative. If patient is stable and her Dilantin level is within therapeutic range she will probably be discharged to a [facility] facility tomorrow. KENISHA DR: Jaqueline TID: [id number]
[2021-01-16] MEDS: DRONABINOL 2.5 MG CAPSULE. PO SCH ×2 (12:01→16:32)
[2021-01-16] MEDS: ALBUTEROL SULFATE 2.5 MG/3 ML NEBU. NEB SCH ×3 (13:20→20:52)
[2021-01-16] MEDS: WARFARIN 4 MG TABLET. PO SCH (16:32)
[2021-01-16] MEDS ORDERED: levETIRAcetam 500 MG in IV DEXTROSE 5% 100ML 100 ML IV SCH (18:00)
[2021-01-16] MEDS: ATORVASTATIN CALCIUM 20 MG TABLET PO SCH (19:55)
[2021-01-16] MEDS: PATCH REMOVAL. MC SCH (21:00)
[2021-01-17 03:10] VITALS: BP 186/128
[2021-01-17] MEDS: DEMECLOCYCLINE HCL 150 MG TABLET. PO SCH (05:17)
[2021-01-17] MEDS: PANTOPRAZOLE 40 MG TABLET.DR. PO SCH (05:17)
[2021-01-17 07:00] VITALS: BP 169/94
[2021-01-17 07:52] LABS: ANION GAP 5 (6-14); BLOOD UREA NITROGEN 13 mg/dL (7-20); CALCIUM 7.6 mg/dL (8.5-10.1); CARBON DIOXIDE 29 mmol/L (21-32); CHLORIDE 99 mmol/L (98-107); CREATININE 0.7 mg/dL (0.6-1.0); GFR 79.5; GLUCOSE 89 mg/dL (70-99); PHENY 9.8 mcg/mL (10.0-20.0); SODIUM 133 mmol/L (136-145)
[2021-01-17 08:01] LABS: PROTHROMBIN TIME PATIENT 25.2 SEC (11.7-14.0)
[2021-01-17] MEDS: ALBUTEROL SULFATE 2.5 MG/3 ML NEBU. NEB SCH ×2 (08:14→11:58)
--- NOTE | 2021-01-17 08:32 | PDOC ---
PROGRESS NOTES Date of Service DATE: 01/17/21 TIME: 08:30 Assessment Problems Medical Problems: (1) Closed traumatic nondisplaced fracture of multiple ribs of right side Status: Acute (2) Fall Status: Acute (3) Traumatic hematoma of scalp Status: Acute Alzheimer's dementia Toxic encephalopathy, Dilantin toxicity, level 25.4 on 01/15 Also had hypokalemia and hyponatremia History of seizures Right occipital stroke with left homonymous hemianopsia, old Plan Discontinue Dilantin Dr. Mello has started levetiracetam, I agree with this idea, no need to give this 85-year-old patient a 89-year-old medication with variable therapeutics Supportive care Okay for discharge Follow-up with neurology as needed Subjective No complaints Objective Vital Signs Date Time Temp Pulse Resp B/P (MAP) Pulse Ox O2 Delivery O2 Flow Rate FiO2 01/17/21 08:14 97 Room Air 01/17/21 07:00 98.2 74 18 169/94 (119) 98.2 01/16/21 20:25 2.0 Intake and Output 01/17/21 07:00 Intake Total 860 ml Balance 860 ml Intake Oral 860 ml # Voids 6 # Bowel Movements 5 PHYSICAL EXAM Alert, can tell me her name, follows a few commands PERRL. EOMI. CN: Left visual field cut Muscle tone: normal. Muscle strength: 4/5 DTR: 2+ Bilateral grasp reflexes Plantar reflex: Flexor Gait: not examined in bed. Sensory exam: no abnormal findings. Cerebellar: Not cooperative Review of Relevant I have reviewed the following items jimmy (where applicable) has been applied. Labs Laboratory Tests Test 01/17/21 07:30 Prothrombin Time 25.2 SEC (11.7-14.0) Prothromb Time International Ratio 2.3 (0.8-1.1) Sodium Level 133 mmol/L (136-145) Potassium Level 4.0 mmol/L (3.5-5.1) Chloride Level 99 mmol/L (98-107) Carbon Dioxide Level 29 mmol/L (21-32) Anion Gap 5 (6-14) Blood Urea Nitrogen 13 mg/dL (7-20) Creatinine 0.7 mg/dL (0.6-1.0) Estimated GFR (Cockcroft-Gault) 79.5 Glucose Level 89 mg/dL (70-99) Calcium Level 7.6 mg/dL (8.5-10.1) Phenytoin (Dilantin) Level 9.8 mcg/mL (10.0-20.0) Phenytoin Last Dose Date 01/11/21 Phenytoin Last Dose Time 1120 Laboratory Tests Test 01/17/21 07:30 Prothrombin Time 25.2 SEC (11.7-14.0) Prothromb Time International Ratio 2.3 (0.8-1.1) Sodium Level 133 mmol/L (136-145) Potassium Level 4.0 mmol/L (3.5-5.1) Chloride Level 99 mmol/L (98-107) Carbon Dioxide Level 29 mmol/L (21-32) Anion Gap 5 (6-14) Blood Urea Nitrogen 13 mg/dL (7-20) Creatinine 0.7 mg/dL (0.6-1.0) Estimated GFR (Cockcroft-Gault) 79.5 Glucose Level 89 mg/dL (70-99) Calcium Level 7.6 mg/dL (8.5-10.1) Phenytoin (Dilantin) Level 9.8 mcg/mL (10.0-20.0) Phenytoin Last Dose Date 01/11/21 Phenytoin Last Dose Time 1120 Microbiology 01/11/21 Blood Culture - Final, Complete NO GROWTH AFTER 5 DAYS Medications Current Medications Ondansetron HCl (Zofran) 4 mg PRN Q8HRS PRN IVP NAUSEA/VOMITING; Start 01/04/21 at 20:00; Stop 01/05/21 at 19:59; Status DC Fentanyl Citrate (Fentanyl 2ml Vial) 50 mcg PRN Q1HR PRN IVP PAIN Last administered on 01/04/21at 21:52; Start 01/04/21 at 20:00; Stop 01/05/21 at 19:59; Status DC Acetaminophen (Tylenol) 650 mg PRN Q4HRS PRN PO FEVER > 100.3'F; Start 01/04/21 at 20:00; Stop 01/05/21 at 19:59; Status DC Albuterol/ Ipratropium (Duoneb) 3 ml RTQID PRN NEB dyspnea/wheezing; Start 01/04/21 at 20:00; Stop 01/05/21 at 19:59; Status DC Amlodipine Besylate (Norvasc) 5 mg 1X ONCE PO Last administered on 01/04/21at 20:35; Start 01/04/21 at 20:00; Stop 01/04/21 at 20:19; Status DC Hydralazine HCl (Apresoline Inj) 10 mg 1X ONCE IVP Last administered on 01/04/21at 20:36; Start 01/04/21 at 20:15; Stop 01/04/21 at 20:19; Status DC Hydralazine HCl (Apresoline Inj) 20 mg TID PRN PRN IVP ELEVATED BP, SEE COMMENTS Last administered on 01/15/21at 12:11; Start 01/04/21 at 22:45 Amlodipine Besylate (Norvasc) 10 mg DAILY PO Last administered on 01/16/21at 0 8:39; Start 01/05/21 at 09:00 Folic Acid (Folic Acid) 1 mg DAILY PO Last administered on 01/16/21at 08:39; Start 01/05/21 at 09:00 Hydrochlorothiazide (Hydrodiuril) 25 mg DAILY PO Last administered on 01/09/21at 09:50; Start 01/05/21 at 09:00; Stop 01/10/21 at 10:40; Status DC Phenytoin Sodium (Dilantin) 300 mg TID PO Last administered on 01/10/21at 11:20; Start 01/05/21 at 00:00; Stop 01/11/21 at 10:58; Status DC Potassium Chloride (Klor-Con) 20 meq DAILY PO Last administered on 01/16/21at 08:39; Start 01/05/21 at 09:00 Atorvastatin Calcium (Lipitor) 20 mg QHS PO Last administered on 01/16/21at 19:55; Start 01/05/21 at 21:00 Non-Formulary Medication (Alendronate Sodium ) 70 mg WEEKLY PO ; Start 01/11/21 at 09:00; Status UNV Calcium/Vitamin D (Oscal D 500mg/ 200uts) 1 tab DAILY PO Last administered on 01/16/21at 08:38; Start 01/05/21 at 09:00 Carvedilol (Coreg) 25 mg BIDWMEALS PO Last administered on 01/16/21at 16:32; Start 01/05/21 at 08:00 Losartan Potassium (Cozaar) 100 mg DAILY PO Last administered on 01/16/21 08:40; Start 01/05/21 at 09:00 Pantoprazole Sodium (Protonix) 40 mg DAILYAC PO Last administered on 01/17/21 05:17; Start 01/05/21 at 07:30 Non-Formulary Medication (Ranitidine Hcl ) 300 mg HS PO ; Start 01/05/21 at 21:00; Status UNV Fentanyl Citrate (Fentanyl 2ml Vial) 50 mcg PRN Q3HRS PRN IVP PAIN Last administered on 01/09/21 01:31; Start 01/06/21 at 02:30 Oxycodone HCl (Roxicodone) 5 mg Q4H PRN PO PAIN Last administered on 01/09/21 14:46; Start 01/06/21 at 09:00; Stop 01/13/21 at 09:52; Status DC Lidocaine (Lidoderm) 2 patch DAILY TD Last administered on 01/10/21 11:27; Start 01/06/21 at 09:00 Miscellaneous (Lidoderm Patch Removal) 1 ea QHS MC Last administered on 01/15/21 21:17; Start 01/06/21 at 21:00 Demeclocycline HCl (Declomycin) 300 mg BID@0700,2100 PO Last administered on 01/17/21 05:17; Start 01/06/21 at 11:00 Docusate Sodium (Colace) 100 mg BID PO Last administered on 01/16/21 19:55; Start 01/07/21 at 11:00 Polyethylene Glycol (miraLAX PACKET) 17 gm DAILY PO Last administered on 01/10/21at 11:24; Start 01/07/21 at 11:00 Potassium Chloride/Sodium Chloride 1,000 ml @ 75 mls/hr [id number] IV Last administered on 01/09/21 01:55; Start 01/07/21 at 09:45; Stop 01/09/21 at 08:56; Status DC Dronabinol (Marinol) 2.5 mg BIDACLD PO Last administered on 01/16/21 16:32; Start 01/08/21 at 11:30 Warfarin Sodium (Coumadin) 4 mg DAILY16 PO Last administered on 10/24/21at 16:32; Start 01/10/21 at 16:00 Warfarin Sodium (Coumadin Per Physician) 1 each PRN DAILY PRN MC SEE COMMENTS Last administered on 01/16/21at 11:30; Start 01/10/21 at 12:45 Potassium Chloride/Sodium Chloride 1,000 ml @ 100 mls/hr Q10H IV Last administered on 01/13/21at 05:31; Start 01/11/21 at 08:45; Stop 01/13/21 at 16:18; Status DC Vancomycin HCl (Vanco Per Pharmacy) 1 each PRN DAILY PRN MC SEE COMMENTS Last administered on 01/13/21at 21:11; Start 01/11/21 at 20:00; Stop 01/14/21 at 09:06; Status DC Piperacillin Sod/ Tazobactam Sod 3.375 gm/Sodium Chloride 50 ml @ 100 mls/hr Q6HRS IV Last administered on 01/15/21at 16:29; Start 01/12/21 at 00:00; Stop 01/15/21 at 18:11; Status DC Acetaminophen (Tylenol Supp) 650 mg PRN Q6HRS PRN SD MILD PAIN / TEMP > 100.3'F Last administered on 01/11/21at 20:53; Start 01/11/21 at 20:00 Acetaminophen (Tylenol) 650 mg PRN Q6HRS PRN PO MILD PAIN / TEMP > 100.3'F; Start 01/11/21 at 20:00 Vancomycin HCl 1.25 gm/Sodium Chloride 250 ml @ 166.667 mls/hr 1X ONCE IV Last administered on 01/11/21at 21:00; Start 01/11/21 at 21:00; Stop 01/11/21 at 22:29; Status DC Vancomycin HCl 750 mg/Sodium Chloride 250 ml @ 250 mls/hr Q24H IV Last administered on 01/12/21at 20:14; Start 01/12/21 at 21:00; Stop 01/13/21 at 21:08; Status DC Vancomycin HCl (Vancomycin Trough Level) 1 each 1X ONCE MC Last administered on 01/13/21at 20:30; Start 01/13/21 at 20:30; Stop 01/13/21 at 20:31; Status DC Oxycodone HCl (Roxicodone) 5 mg PRN Q4HRS PRN PO MODERATE-SEVERE PAIN Last administered on 01/16/21at 19:55; Start 01/13/21 at 10:00 Potassium Chloride/Sodium Chloride 1,000 ml @ 100 mls/hr Q10H IV Last administered on 01/14/21at 20:59; Start 01/13/21 at 16:30; Stop 01/15/21 at 09:09; Status DC Lactobacillus Rhamnosus (Culturelle) 1 cap BID PO Last administered on 01/16/21at 19:55; Start 01/13/21 at 21:00 Vancomycin HCl 750 mg/Sodium Chloride 250 ml @ 250 mls/hr Q12H IV Last administered on 01/13/21at 22:01; Start 01/13/21 at 21:30; Stop 01/14/21 at 09:03; Status DC Vancomycin HCl (Vancomycin Trough Level) 1 each 1X ONCE MC ; Start 01/15/21 at 09:00; Stop 01/14/21 at 09:06; Status DC Amoxicillin/ Clavulanate Potassium (Augmentin 500/ 125mg) 1 tab BID PO Last administered on 01/16/21at 19:54; Start 01/15/21 at 21:00 Albuterol Sulfate (Ventolin Neb Soln) 2.5 mg RTQID NEB Last administered on 01/17/21at 08:14; Start 01/16/21 at 12:00 Levetiracetam 500 mg/Dextrose 105 ml @ 420 mls/hr Q12HR IV Last administered on 01/16/21at 23:00; Start 01/16/21 at 18:00 Active Scripts Active Reported Dilantin (Phenytoin Sodium Extended) 100 Mg Capsule 300 Mg PO QHS Nisoldipine 17 Mg Tab.er.24h 17 Mg PO DAILY Simvastatin 40 Mg Tablet 40 Mg PO HS Ranitidine Hcl 300 Mg Capsule 300 Mg PO HS Warfarin Sodium 4 Mg Tablet 4 Mg PO DAILY Alendronate Sodium 70 Mg Tablet 70 Mg PO WEEKLY Calcium + D Soft Chewable Tab (Ca Carbonate/Vitamin D3/Vit K) 1 Each Tab.chew 1 Each PO DAILY Protonix (Pantoprazole Sodium) 20 Mg Tablet.dr 20 Mg PO DAILY Folic Acid 1 Mg Tablet 1 Mg PO DAILY Klor-Con M20 (Potassium Chloride) 20 Meq Tab.er.prt 20 Meq PO DAILY Hydrochlorothiazide Tablet (Hydrochlorothiazide) 25 Mg Tablet 25 Mg PO DAILY Losartan Potassium 100 Mg Tablet 100 Mg PO DAILY Carvedilol 25 Mg Tablet 25 Mg PO BIDWMEALS Vitals/I & O Vital Sign - Last 24 Hours 01/16/21 01/16/21 01/16/21 01/16/21 08:39 08:40 08:40 11:00 Temp 97.9 97.9 Pulse 73 73 73 87 Resp 24 B/P (MAP) 204/78 204/78 204/78 154/79 (104) Pulse Ox 98 O2 Delivery Room Air 01/16/21 01/16/21 01/16/21 01/16/21 15:00 15:26 16:32 19:37 Temp 98.2 98.2 98.2 98.2 Pulse 79 79 73 Resp 20 16 B/P (MAP) 139/31 (67) 139/31 123/55 (77) Pulse Ox 96 97 97 O2 Delivery Room Air Room Air Room Air 01/16/21 01/16/21 01/16/21 01/16/21 19:55 20:00 20:25 20:54 Resp 18 16 Pulse Ox 97 97 96 O2 Delivery Room Air Room Air Room Air Room Air O2 Flow Rate 2.0 01/16/21 01/17/21 01/17/21 01/17/21 22:47 03:10 07:00 08:14 Temp 98.5 98.3 98.2 98.5 98.3 98.2 Pulse 73 72 74 Resp 20 18 18 B/P (MAP) 196/73 (114) 186/128 (147) 169/94 (119) Pulse Ox 98 99 98 97 O2 Delivery Room Air Room Air Room Air Room Air Intake and Output 01/16/21 01/16/21 01/17/21 15:00 23:00 07:00 Intake Total 320 ml 300 ml 240 ml Balance 320 ml 300 ml 240 ml Justicifation of Admission Dx: Justifications for Admission: Justification of Admission Dx: Yes LEEROY MELENDEZ MD Jan 17, 2021 08:32
[2021-01-17] MEDS ORDERED: levETIRAcetam 500 MG TABLET PO SCH (09:00)
[2021-01-17] MEDS ORDERED: OXYC5TAB4 PO (09:03)
[2021-01-17] MEDS ORDERED: LEVE500T56 PO (09:03)
[2021-01-17] MEDS ORDERED: AMOX1TAB58 PO (09:03)
--- NOTE | 2021-01-17 09:06 | SNU/HH DC ---
DISCHARGE ORDERS DISCHARGE INFORMATION: DISCHARGE DATE: Jan 17, 2021 FINAL DIAGNOSIS Problems Medical Problems: (1) Closed traumatic nondisplaced fracture of multiple ribs of right side Status: Acute (2) Fall Status: Acute (3) Traumatic hematoma of scalp Status: Acute CONDITION ON DISCHARGE: Stable CODE STATUS: Code Status: Full LONG-TERM: SNF STAY <30 DAYS: Yes POST DISCHARGE ORDERS: ACTIVITY ORDERS: Activity as tolerated DIET AFTER DISCHARGE: Cardiac TREATMENT/EQUIPMENT ORDERS: Physical Therapy For: Evalulation/Treatment Occupational Therapy For: Evaluation/Treatment DISCHARGE MEDICATIONS: Home Meds Active Scripts Oxycodone Hcl (OXYCODONE HCL IMMED.RELEASE ) 5 Mg Tablet, 5 MG PO Q4H PRN for PAIN for 30 Days, #180 TAB 0 Refills Prov:SHILPA CHEN MD 01/17/21 Levetiracetam (KEPPRA) 500 Mg Tablet, 1 TAB PO BID for seizure for 30 Days, #60 TAB 5 Refills Prov:SHILPA CHEN MD 01/17/21 Amoxicillin/Potassium Clav (AUGMENTIN 500-125 TABLET) 1 Each Tablet, 1 TAB PO BID for pneumonia for 4 Days, #8 TAB 0 Refills Prov:SHILPA CHEN MD 01/17/21 Reported Medications Nisoldipine (NISOLDIPINE) 17 Mg Tab.er.24h, 17 MG PO DAILY for BP, TAB.SR 04/23/18 Simvastatin (SIMVASTATIN) 40 Mg Tablet, 40 MG PO HS for FOR CHOLESTEROL, #30 TAB 0 Refills 04/23/18 Ranitidine Hcl (RANITIDINE HCL) 300 Mg Capsule, 300 MG PO HS for REFLUX, CAP 04/23/18 Warfarin Sodium (WARFARIN SODIUM) 4 Mg Tablet, 4 MG PO DAILY for BLOOD THINNER, #30 TAB 04/23/18 Alendronate Sodium (ALENDRONATE SODIUM) 70 Mg Tablet, 70 MG PO WEEKLY for OSTEOPORIS, TAB 04/23/18 Ca Carbonate/Vitamin D3/Vit K (CALCIUM + D SOFT CHEWABLE TAB) 1 Each Tab.chew, 1 EACH PO DAILY for VIT, TAB.CHEW 04/23/18 Pantoprazole Sodium (PROTONIX) 20 Mg Tablet.dr, 20 MG PO DAILY for REFLUX, TAB 04/23/18 Folic Acid (FOLIC ACID) 1 Mg Tablet, 1 MG PO DAILY for DEPLETION, TAB 04/23/18 Losartan Potassium (LOSARTAN POTASSIUM) 100 Mg Tablet, 100 MG PO DAILY for HYPERTENSION, TAB 04/23/18 Carvedilol (CARVEDILOL) 25 Mg Tablet, 25 MG PO BIDWMEALS for CARDIAC, TAB 04/23/18 Discontinued Reported Medications Phenytoin Sodium Extended (DILANTIN) 100 Mg Capsule, 300 MG PO QHS for ANTI SIEZURE, CAP 04/23/18 Potassium Chloride (KLOR-CON M20) 20 Meq Tab.er.prt, 20 MEQ PO DAILY for POTASSIUM, TAB.SR 04/23/18 Hydrochlorothiazide (HYDROCHLOROTHIAZIDE TABLET ) 25 Mg Tablet, 25 MG PO DAILY for DIURETIC, TAB 0 Refills 04/23/18 SHILPA CHEN MD Jan 17, 2021 09:06
[2021-01-17] MEDS: AMOXICILLIN/K CLAV 500/125MG TABLET. PO SCH (09:14)
[2021-01-17] MEDS: POLYETHYLENE GLYCOL 3350 17 GM PACKET. PO SCH (09:14)
[2021-01-17] MEDS: LACTOBACILLUS RHAMNOSUS GG 1 CAPSULE. PO SCH (09:14)
[2021-01-17] MEDS: FOLIC ACID 1 MG TABLET. PO SCH (09:15)
[2021-01-17] MEDS: DOCUSATE SODIUM 100 MG CAPSULE. PO SCH (09:15)
[2021-01-17] MEDS: CALCIUM CARB/VIT D3 500/200 TABLET. PO SCH (09:15)
[2021-01-17] MEDS: POTASSIUM CHLORIDE 20 MEQ TABLET.ER. PO SCH (09:16)
[2021-01-17] MEDS: CARVEDILOL 12.5 MG TABLET. PO SCH (09:17)
[2021-01-17] MEDS: LOSARTAN POTASSIUM 50 MG TABLET. PO SCH (09:17)
[2021-01-17] MEDS: LIDOCAINE (700MG/PATCH) PATCH. TD SCH (09:20)
[2021-01-17 11:26] VITALS: BP 186/65
--- NOTE | 2021-01-17 13:04 | NUR ---
BP was 166/94 this am, hydralazine was not given. Pt has left facility by transport at 1240 to go to [facility].
== END 2021-01-17 12:50 | DRG 183 ==
LOC: ER 19:45 → 1 WEST ICU 19:57 → 4 NORTH 01-05 13:30
PROVIDERS: ADMIT Internal Medicine; ATTEND Internal Medicine
DX: S22.41XA Multiple fractures of ribs, right side, initial encounter for closed fracture (principal); G92.8 Other toxic encephalopathy; E43 Unspecified severe protein-calorie malnutrition; E22.2 Syndrome of inappropriate secretion of antidiuretic hormone; E78.5 Hyperlipidemia, unspecified; E87.6 Hypokalemia; F02.80 Dementia in other diseases classified elsewhere, unspecified severity, without behavioral disturbance, psychotic disturbance, mood disturbance, and anxiety; G30.9 Alzheimer's disease, unspecified; G40.909 Epilepsy, unspecified, not intractable, without status epilepticus; H35.30 Unspecified macular degeneration; I10 Essential (primary) hypertension; I25.10 Atherosclerotic heart disease of native coronary artery without angina pectoris; I44.0 Atrioventricular block, first degree; I48.91 Unspecified atrial fibrillation; K21.9 Gastro-esophageal reflux disease without esophagitis; K57.90 Diverticulosis of intestine, part unspecified, without perforation or abscess without bleeding; M81.0 Age-related osteoporosis without current pathological fracture; S00.03XA Contusion of scalp, initial encounter; W01.0XXA Fall on same level from slipping, tripping and stumbling without subsequent striking against object, initial encounter; Z79.01 Long term (current) use of anticoagulants; Z86.73 Personal history of transient ischemic attack (TIA), and cerebral infarction without residual deficits; Z90.710 Acquired absence of both cervix and uterus; F32.A Depression, unspecified; Y93.89 Activity, other specified; Y92.89 Other specified places as the place of occurrence of the external cause; Y99.8 Other external cause status; Z20.822 Contact with and (suspected) exposure to COVID-19
CPT/HCPCS: 36415; 36600; 70450; 71045; 73502; 80048; 80053; 80185; 80202; 81001; 82140; 82565; 82805; 83605; 84132; 84443; 84484; 85007; 85025; 85027; 85610; 87040; 87493; 93005; 94640; 94760; J0360; J1953; J2543; J3010; J3370; J3480; J7050; J7060; U0003; U0005; 92526-GN; 92610-GN; 97110-GP; 97530-GO; 97530-GP; 97535-GO; 99285-25; G0378; J7030; J7613; Q0167